=== PATIENT | female | born 1955 | race African-American/Black ===

== ENCOUNTER 2020-11-10 16:05 | Observation (INO) ==
--- NOTE | 2020-11-10 16:08 | DR.DIZZY ---
HPI Time seen Time Seen by Provider: 11/10/20 16:07 HPI Comment HPI Comment: This 65-year-old -[place] female with previous history of type 2 diabetes, hypertension presents with left-sided weakness for 1 week. Patient seen in ER yesterday for similar symptoms. Was also complaining of vomiting. Underwent CT of the head which demonstrated right-sided posterior infarct. It was recommended that patient follow-up with her primary care doctor as well as a neurologist however patient did not do this. Reports persistent left-sided weakness, unchanged from yesterday, in the left upper and left lower extremity. No new or worsening facial droop, speech difficulty, headache, chest pain or shortness of breath. No new focal numbness or weakness. COVID-19 Coronavirus risk:travel/contact w/high risk person: No Has patient experienced Coronavirus symptoms: No Source History Provided: Patient and EMS Mode of Arrival Mode of Arrival: EMS Context Stroke Symptoms: Weakness of limb Associated signs and symptoms Associated Signs and Symptoms: Weak; denies Faintness, Syncope, Near Syncope, Vertigo, Difficult Speech, Change of Vision, Fever, Headache, Chest Pain, Nausea and Vomiting PMH PMH Past Medical History: Angina, Diabetes and Hypertension Past Surgical History: Yes Surgical History: Ortho Surgery and Other Family History Family Medical History: Diabetes Mellitus, Heart Failure and Hypertension Social History Do you use any recreational Drugs:: No Travel Risk Coronavirus risk:travel/contact w/high risk person: No Has patient experienced Coronavirus symptoms: No ROS Review of Systems Constitutional: No Symptoms Reported Eyes: No Symptoms Reported ENTM: No Symptoms Reported Respiratoy: No Symptoms Reported Cardiovascular: No Symptoms Reported Gastrointestinal/Abdominal: No Symptoms Reported Genitourinary: No Symptoms Reported Neurological: Paresthesia and Weakness; negative Headache, Numbness, Seizure and Dizziness Musculoskeletal: No Symptoms Reported Integumentary: No Symptoms Reported Hematologic/Lymphatic: No Symptoms Reported Endocrine: No Symptoms Reported Psychiatric: No Symptoms Reported All Other Systems: Reviewed and Negative PE Vital Signs Vitals: Temperature 36.7 C Pulse Rate 71 Respiratory Rate 18 Blood Pressure [Right Arm] 120/56 Blood Pressure [Left Arm] 144/61 Blood Pressure 120/56 O2 Sat by Pulse Oximetry 98 General Limitations: No Limitations General Appearance: Alert and In No Apparent Distress Head Head Exam: Normal Inspection Eyes Eye exam: Normal Appearance ENT ENT Exam: Normal Exam, Normal Oropharynx and Normal External Ear Exam Neck Neck Exam: Normal Inspection and Full ROM Chest Chest Inspection: Normal Inspection Respiratory Respiratory Exam: Normal Lung Sounds Bilat Cardiovascular Cardiovascular Exam: Regular Rate and Normal Rhythm Abdominal Exam Abdominal Exam: Normal Inspection, Normal Bowel Sounds and Soft Rectal Rectal Exam: Deferred Extremeties Extremities Exam: Normal Inspection and Full ROM Back Back Exam: Normal Inspection and Full ROM Neurologic Neurological Exam: Alert, Oriented X3 and CN II-XII Intact Patient Oriented To: Person, Place and Time Speech: Fluid Speech Upper Motor Neuron Exam: Dung Neglect: Normal, Pronator Drift: Normal and Sensory Extinction: Normal Psychiatric Psychiatric Exam: Normal Affect and Normal Mood Skin Skin Exam: Warm, Dry, Intact and Normal Color Other Exam Other Exam: right bka 5/5 strength LLE/ LUE, 5/5 strength RUE MDM Additional Information Obtained Additional Information Obtained From: Old Records Differential Diagnosis Differential Diagnosis: CVA, Dehydration and TIA COURSE Treatment Treatment: ct head repeated, stable old posterior infarct. Will Dc Education/Counseling Education/Counseling: Patient Educated On: Treatment, Diagnosis, Prognosis and Needs for Follow Up Opioid Opioid Risk Tool Age (Alexis box if 16-45): No History of Preadolescent Sexual Abuse: No Total: 0 Total Score Risk Category: Low Risk Copyright: Adam SIMPSON predicting aberrant behaviors Diagnosis Discharge Problem: CVA (cerebral vascular accident) Qualifiers: CVA mechanism: unspecified Qualified Code(s): I63.9 - Cerebral infarction, unspecified Instructions Instructions: Ischemic Stroke Forms: Precautions for COVID19 Patient Portal Social Distancing
--- NOTE | 2020-11-10 17:33 | CT ---
EXAM: HEAD CT WITHOUT INTRAVENOUS CONTRASTHISTORY: Left arm weakness and numbness since yesterday.TECHNIQUE: Spiral axial CT images are obtained through the brain without the administration of intravenous contrast. Additional sagittal and coronal reformatted images are reconstructed.DOSIMETRY: Total DLP 1087.8 mGycm; CTDI 67.4 mGyCOMPARISON: Head CT dated November 09, 2020.FINDINGS:There is an old stable right occipital lobe parenchymal infarction (approximately 5.3 cm AP by 2.6 cm transverse). There are mild parenchymal lucencies within the frontal periventricular white matter tracks of the centrum semiovale, consistent with chronic sequela of atherosclerotic microvascular ischemic disease. There is severe atherosclerosis of the carotid siphons and distal vertebral arteries.There is diffuse cerebral cortical atrophy. The centrum semiovale, basal ganglia, cerebellum, and brainstem are otherwise grossly unremarkable for a noncontrast CT scan. There is no acute intracranial hemorrhage, gross acute infarction, mass lesion, midline shift, or hydrocephalus seen. No extra-axial mass or abnormal fluid collection noted.The calvarium is intact. The partially imaged paranasal sinuses, middle ear cavities and mastoid air cells are clear.IMPRESSION:1. Stable chronic ischemic disease as detailed above, but no discernible acute infarction seen. Consider followup MRI with diffusion-weighted imaging to rule out occult acute infarction if clinically warranted.2. Severe atherosclerosis of the carotid siphons and distal vertebral arteries. Consider follow up MRA as clinically warranted.3. No skull fracture, intracranial hemorrhage, mass lesion, midline shift, or hydrocephalus seen.4. Overall, no significant interval change seen.Electronically signed by: Gely Moses (Nov 10, 2020 17:32:06)
[2020-11-10] MEDS ORDERED: ASPIRIN PO ONE (18:13)
--- NOTE | 2020-11-10 18:15 | DR.DIZZY ---
HPI Time seen Time Seen by Provider: 11/10/20 16:07 PCP Primary Care Physician: Cisneros Complaint Chief Complaint:: Pt c/o left arm weakness and numbness since yesterday. Pt seen yesterday for same and advised to see pcp and neurologist. COVID-19 Coronavirus risk:travel/contact w/high risk person: No Has patient experienced Coronavirus symptoms: No Source History Provided: Patient and EMS Mode of Arrival Mode of Arrival: EMS Timing Onset of Chief Complaint: 11/09/20 Context Stroke Symptoms: None Associated signs and symptoms Associated Signs and Symptoms: Weak; denies Faintness, Syncope, Near Syncope, Vertigo, Difficult Speech, Change of Vision, Fever, Headache, Chest Pain, Nausea and Vomiting PMH PMH Past Medical History: Yes Past Medical History: Angina, Diabetes and Hypertension Past Surgical History: Yes Surgical History: Ortho Surgery and Other Past Surgical History Comment: right aka, gallstone removal Family History History of Family Medical Conditions: Yes Family Medical History: Diabetes Mellitus, Heart Failure and Hypertension Social History Does patient currently use any type of tobacco product: No Have you used tobacco products in the last 12 months: No Type of Tobacco Use: Cigarettes Does any household member use tobacco: No Alcohol Use: None Do you use any recreational Drugs:: No Lives With: Family Lives Where: Home Travel Risk Coronavirus risk:travel/contact w/high risk person: No Has patient experienced Coronavirus symptoms: No Infectious screening In the last 2 months have you had wt loss of >10#?: NO Have you had fever, night sweats or hemotysis?: No Have you traveled outside the country in the last 6 months?: No Isolation: Standard PE Vital Signs Vitals: Temperature 36.7 C Pulse Rate 71 Respiratory Rate 18 Blood Pressure [Right Arm] 120/56 Blood Pressure [Left Arm] 144/61 Blood Pressure 120/56 O2 Sat by Pulse Oximetry 98 COURSE Treatment Treatment: entered in error Opioid Opioid Risk Tool Age (Alexis box if 16-45): No History of Preadolescent Sexual Abuse: No Total: 0 Total Score Risk Category: Low Risk Copyright: Adam SIMPSON predicting aberrant behaviors Diagnosis Discharge Problem: CVA (cerebral vascular accident) Qualifiers: CVA mechanism: unspecified Qualified Code(s): I63.9 - Cerebral infarction, unspecified Instructions Instructions: Ischemic Stroke Forms: Patient Portal Social Distancing
[2020-11-10] MEDS ORDERED: PLAVIX ONE (18:18)
[2020-11-10] MEDS ORDERED: ASPIRIN ONE (18:19)
[2020-11-10] MEDS: PLAVIX PO SCH (18:30)
[2020-11-10] MEDS ORDERED: LIPITOR TAB 80 MG ONE (18:32)
[2020-11-10] MEDS: LIPITOR TAB 40 MG PO SCH (18:35)
[2020-11-10 21:46] VITALS: BMI 31.4
[2020-11-11 06:42] LABS: ALBUMIN 2.4 g/dL (3.4-5.0); TOTAL PROTEIN 7.4 g/dL (6.4-8.2)
[2020-11-11 06:46] LABS: BASOPHILS % (AUTO) 0.4 % (0.2-1.0); EOSINOPHILS # (AUTO) 0.3 x10^3/uL (0.0-0.2); EOSINOPHILS % (AUTO) 3.6 % (0.9-2.9); HEMATOCRIT 32.6 % (36.0-47.0); HEMOGLOBIN 10.2 g/dL (12.0-16.0); LYMPHOCYTES # (AUTO) 3.6 X10^3/uL (1.3-2.9); LYMPHOCYTES % (AUTO) 40.9 % (21.0-51.0); MEAN CORPUSCULAR HEMOGLOBIN 27.5 pg (27.0-34.0); MEAN CORPUSCULAR HGB CONC 31.3 g/dL (33.0-35.0); MEAN PLATELET VOLUME 7.7 fL (7.4-11.0); MONOCYTES # (AUTO) 0.5 x10^3/uL (0.3-0.8); MONOCYTES % (AUTO) 6.2 % (0.0-13.0); NEUTROPHILS # (AUTO) 4.3 x10^3/uL (2.2-4.8); NEUTROPHILS % (AUTO) 48.9 % (42.0-75.0); PLATELET COUNT 330 X10^3/uL (150.0-450.0); RED CELL DISTRIBUTION WIDTH 15.6 % (11.6-16.5); WHITE BLOOD COUNT 8.7 X10^3/uL (3.6-10.0)
[2020-11-11 07:15] LABS: CALCIUM 8.4 mg/dL (8.5-10.1); COR CA(FOR HYPOALB) 9.7 mg/dL (8.5-10.1); CREATININE 1.63 mg/dL (0.55-1.02)
[2020-11-11] MEDS ORDERED: MICRO K EXTEN CAP 10 MEQ PO PRN (07:56)
[2020-11-11] MEDS ORDERED: K-RIDER 10 MEQ/NS 100 ML 10 MEQ/100 ML BAG IV PRN (07:56)
[2020-11-11] MEDS ORDERED: POTASSIUM CHL 60 MEQ/NS 0.45% 500 ML IV PRN (07:56)
[2020-11-11] MEDS ORDERED: POTASSIUM CHLORIDE LIQ 20 MEQ UDC PO PRN (07:56)
[2020-11-11] MEDS ORDERED: K-DUR TAB 20 MEQ PO PRN (07:56)
[2020-11-11] MEDS ORDERED: POTASSIUM CHL 40 MEQ/NS 0.45% 500 ML IV PRN (07:56)
[2020-11-11] MEDS ORDERED: KLOR-CON PO PRN (07:56)
[2020-11-11] MEDS: LIPITOR TAB 40 MG PO SCH (08:55)
[2020-11-11] MEDS: PLAVIX PO SCH (08:55)
[2020-11-11] MEDS: LOVENOX INJ 30 MG SYR SC SCH (10:25)
[2020-11-11] MEDS: ACTOS PO SCH (10:25)
[2020-11-11] MEDS: COZAAR PO SCH (10:25)
--- NOTE | 2020-11-11 12:10 | VAS ---
CAROTID USCLINICAL INDICATION: LEFT ARM NUMBNESS, CVAPROCEDURE: Pulsed wave and color-flow duplex imaging was utilized to evaluate the extracranial carotid arteries.COMPARISON:NoneFINDINGS:Right carotid:No hemodynamically significant stenosis involving the right carotid artery. The velocities are as follows:CCA peak systolic velocity 42 cm/sec, ICA peak systolic velocity 59 cm/sec. Flow within the right vertebral and right ECA is directed antegrade.ICA/CCA ratio: 1.2Left carotid:No hemodynamically significant stenosis involving the left carotid artery. The velocities are as follows:CCA peak systolic velocity 56 cm/sec, ICA peak systolic velocity 86 cm/sec. Flow within the left vertebral and left ECA is directed antegrade.ICA/CCA ratio: 1.5IMPRESSION:1. Normal peak systolic velocity corresponds to a less than 50% diameter stenosis of the right ICA.2. Normal peak systolic velocity corresponds to a less than 50% diameter stenosis of the left ICA.Electronically signed by: NEGRO LOCKE (Nov 11, 2020 12:08:47)
[2020-11-12 06:55] LABS: BASOPHILS % (AUTO) 0.4 % (0.2-1.0); EOSINOPHILS # (AUTO) 0.3 x10^3/uL (0.0-0.2); HEMATOCRIT 30.4 % (36.0-47.0); HEMOGLOBIN 9.9 g/dL (12.0-16.0); LYMPHOCYTES # (AUTO) 3.3 X10^3/uL (1.3-2.9); LYMPHOCYTES % (AUTO) 38.2 % (21.0-51.0); MEAN CORPUSCULAR HEMOGLOBIN 28.3 pg (27.0-34.0); MEAN CORPUSCULAR HGB CONC 32.5 g/dL (33.0-35.0); MEAN PLATELET VOLUME 7.9 fL (7.4-11.0); MONOCYTES # (AUTO) 0.5 x10^3/uL (0.3-0.8); MONOCYTES % (AUTO) 5.4 % (0.0-13.0); NEUTROPHILS # (AUTO) 4.5 x10^3/uL (2.2-4.8); PLATELET COUNT 320 X10^3/uL (150.0-450.0); RED BLOOD COUNT 3.49 X10^6/uL (3.5-5.4); RED CELL DISTRIBUTION WIDTH 15.9 % (11.6-16.5); WHITE BLOOD COUNT 8.6 X10^3/uL (3.6-10.0)
[2020-11-12 07:14] LABS: ALBUMIN 2.3 g/dL (3.4-5.0); CALCIUM 7.9 mg/dL (8.5-10.1); CARBON DIOXIDE 24.8 mmol/L (21-32); COR CA(FOR HYPOALB) 9.3 mg/dL (8.5-10.1); CREATININE 1.32 mg/dL (0.55-1.02); TOTAL PROTEIN 7.1 g/dL (6.4-8.2)
[2020-11-12] MEDS: LOVENOX INJ 30 MG SYR SC SCH (09:21)
[2020-11-12] MEDS: LIPITOR TAB 40 MG PO SCH (09:22)
[2020-11-12] MEDS: PLAVIX PO SCH (09:22)
[2020-11-12] MEDS: COZAAR PO SCH (09:22)
[2020-11-12] MEDS: ACTOS PO SCH (09:28)
[2020-11-12] MEDS ORDERED: GLUCOPHAGE XR 24-HR PO SCH (11:00)
[2020-11-12] MEDS ORDERED: NORVASC TAB 5 MG PO SCH (11:00)
[2020-11-12 12:22] VITALS: BP 186/77
== END 2020-11-12 13:45 | disposition home or self-care (01) ==
LOC: MED/SURG 16:05 → ER 16:05 → MED/SURG 20:45
PROVIDERS: ADMIT Obstetrics & Gynecology Obstetrics; ATTEND Obstetrics & Gynecology Obstetrics
DX: E11.65 Type 2 diabetes mellitus with hyperglycemia; R20.0 Anesthesia of skin; I10 Essential (primary) hypertension; Z20.822 Contact with and (suspected) exposure to COVID-19; I63.89 Other cerebral infarction; R53.1 Weakness; R26.89 Other abnormalities of gait and mobility

== ENCOUNTER 2020-11-26 07:10 | Inpatient (IN) ==
[2020-11-26 07:39] VITALS: BMI 28.8
[2020-11-26] MEDS ORDERED: ZOFRAN INJ 4 MG VIAL IVP ONE (07:39)
[2020-11-26] MEDS ORDERED: NS 1000 ML 1,000 ML IV ONE (07:40)
--- NOTE | 2020-11-26 07:41 | DR.NAUSEAF ---
HPI Time Seen Time Seen by Provider: 11/26/20 07:37 PMH PMH Past Medical History: Angina, Diabetes and Hypertension Past Surgical History: Yes Surgical History: Ortho Surgery Family History Family Medical History: Diabetes Mellitus, Heart Failure and Hypertension Social History Do you use any recreational Drugs:: No PE Vital Signs Vitals: Blood Pressure [Right Arm] 186/77 Opioid Opioid Risk Tool Age (Alexis box if 16-45): No History of Preadolescent Sexual Abuse: No Total: 0 Total Score Risk Category: Low Risk Copyright: Adam SIMPSON predicting aberrant behaviors
[2020-11-26 07:49] LABS: BASOPHILS % (AUTO) 0.4 % (0.2-1.0); EOSINOPHILS # (AUTO) 0.2 x10^3/uL (0.0-0.2); EOSINOPHILS % (AUTO) 1.5 % (0.9-2.9); HEMATOCRIT 30.8 % (36.0-47.0); HEMOGLOBIN 9.7 g/dL (12.0-16.0); LYMPHOCYTES % (AUTO) 37.7 % (21.0-51.0); MEAN CORPUSCULAR HEMOGLOBIN 27.7 pg (27.0-34.0); MEAN CORPUSCULAR HGB CONC 31.5 g/dL (33.0-35.0); MEAN CORPUSCULAR VOLUME 87.9 fL (80.0-100.0); MEAN PLATELET VOLUME 7.5 fL (7.4-11.0); MONOCYTES # (AUTO) 0.8 x10^3/uL (0.3-0.8); MONOCYTES % (AUTO) 5.9 % (0.0-13.0); NEUTROPHILS # (AUTO) 7.2 x10^3/uL (2.2-4.8); NEUTROPHILS % (AUTO) 54.5 % (42.0-75.0); PLATELET COUNT 375 X10^3/uL (150.0-450.0); RED BLOOD COUNT 3.51 X10^6/uL (3.5-5.4); RED CELL DISTRIBUTION WIDTH 16.1 % (11.6-16.5); WHITE BLOOD COUNT 13.3 X10^3/uL (3.6-10.0)
[2020-11-26 07:52] LABS: CARBON DIOXIDE 28.3 mmol/L (21-32); CREATININE 2.02 mg/dL (0.55-1.02)
[2020-11-26] MEDS ORDERED: ZOFRAN INJ 4 MG VIAL ONE (07:56)
[2020-11-26] MEDS ORDERED: NS 1000 ML 1,000 ML ONE (07:56)
[2020-11-26 08:02] LABS: ALBUMIN 2.8 g/dL (3.4-5.0); TOTAL PROTEIN 8.5 g/dL (6.4-8.2)
--- NOTE | 2020-11-26 08:56 | RAD ---
HISTORYDiarrheaSTUDYKUB two viewsCOMPARISONFebruary 2020FINDINGSThere are several segments of distended small bowel in the left-central abdomen. No colon dilatation is noted. There is no evidence for mass, abnormal calcification or ascites. Surgical clips right upper quadrant consistent with cholecystectomy.IMPRESSIONLocalized small-bowel dilatation, probably ileus, although a developing small bowel obstruction could produce similar findings. Follow-up imaging recommended if symptoms persist.Electronically signed by: TONY BREWER (Nov 26, 2020 08:53:58)
--- NOTE | 2020-11-26 09:02 | DR.NAUSEAF ---
HPI Time Seen Time Seen by Provider: 11/26/20 07:37 Primary Care Physician Primary Care Physician: DALY Complaints Chief Complaint:: PT C/O N/V/D THT STARTED LAST NIGHT. PT'S FAMILY STATED TO EMSS THAT PT ESTER BEEN EXCESSIVLY WEAK AND STARTED HAVING SURRED SPEECH LAST NIGHT. PT COMES IN VIA EMS PER STRETCHER ACTIVLY VOMITTING. PT IS NOTED TO BE VERY WEAK AND HAVING DIFFICULTY HOLDING HEAD UP. PT IS ALSO COVERED IN FECES. DIAHRREA NOTED IN PULL UP. COVID-19 Coronavirus risk:travel/contact w/high risk person: No Has patient experienced Coronavirus symptoms: No Reviewed Nurses Notes Reviewed: Yes Source History Provided: Patient and EMS Mode of Arrival Mode of Arrival: EMS Timing Onset of Chief Complaint: 11/25/20 Duration Duration: 1 Severity Number of episodes of vomiting over last 24 hours: 3 Context Onset: Spontaneous History of: Diabetes (chronic renal failure ) Quality Quality: Bilious Associated Signs and Symptoms Symptoms: Anorexia PMH PMH Past Medical History: Yes Past Medical History: Angina, Diabetes and Hypertension Past Surgical History: Yes Surgical History: Ortho Surgery Past Surgical History Comment: KELLY Family History History of Family Medical Conditions: Yes Family Medical History: Diabetes Mellitus, Heart Failure and Hypertension Social History Does any household member use tobacco: No Alcohol Use: None Do you use any recreational Drugs:: No Lives With: Family Lives Where: Home Travel Risk Coronavirus risk:travel/contact w/high risk person: No Has patient experienced Coronavirus symptoms: No Infectious screening In the last 2 months have you had wt loss of >10#?: NO Have you had fever, night sweats or hemotysis?: No Have you traveled outside the country in the last 6 months?: No Isolation: Standard ROS Review of Systems Constitutional: Weakness Gastrointestinal/Abdominal: Nausea and Vomiting Neurological: Headache and Problems Walking Musculoskeletal: Other (right above the knee amputation) PE Vital Signs Vitals: Pulse Rate 77 Respiratory Rate 22 Blood Pressure [Right Arm] 186/77 Blood Pressure 133/80 O2 Sat by Pulse Oximetry 99 General Limitations: No Limitations General Appearance: Alert and Other (APHASIA ) Head Head Exam: Normal Inspection ENT ENT Exam: Mucous Membranes Dry Neck Neck Exam: Full ROM Chest Chest Inspection: Symmetric Chest Wall Rise Respiratory Respiratory Exam: Normal Lung Sounds Bilat Cardiovascular Cardiovascular Exam: +S1 and +S2 Abdominal Exam Abdominal Exam: Normal Bowel Sounds, Soft and Other (Protuberant ) Extremities Extremities Exam: Other (above the knee amputation right ,) Neurologic Neurological Exam: Alert and Other (Left sided hemiparesis ) Skin Skin Exam: Dry MDM Additional Information Obtained Additional Findings:: vomiting ,dehydration ,constipation ,Bedbound ,renal failure ,headache Differential Diagnosis Differential Diagnosis: Considerations may Include:: Bowel Obstruction, Drug Toxicity, Food Poisoning and Gastroenteritis COURSE Treatment Treatment: IV fluids,iv zofran ,CT of the head ,plain abdominal film , tylenol ROR Labs Reviewed Laboratory Results Reviewed?: Yes Result Diagrams: 11/26/20 07:30 11/26/20 07:30 Laboratory: WBC 13.3 X10^3/uL (3.6-10.0) H 11/26/20 07:30 RBC 3.51 X10^6/uL (3.5-5.4) 11/26/20 07:30 Hgb 9.7 g/dL (12.0-16.0) L 11/26/20 07:30 Hct 30.8 % (36.0-47.0) L 11/26/20 07:30 MCV 87.9 fL (80.0-100.0) 11/26/20 07:30 MCH 27.7 pg (27.0-34.0) 11/26/20 07:30 MCHC 31.5 g/dL (33.0-35.0) L 11/26/20 07:30 RDW 16.1 % (11.6-16.5) 11/26/20 07:30 Plt Count 375 X10^3/uL (150.0-450.0) 11/26/20 07:30 MPV 7.5 fL (7.4-11.0) 11/26/20 07:30 Neut % (Auto) 54.5 % (42.0-75.0) 11/26/20 07:30 Lymph % (Auto) 37.7 % (21.0-51.0) 11/26/20 07:30 [place] % (Auto) 5.9 % (0.0-13.0) 11/26/20 07:30 Eos % (Auto) 1.5 % (0.9-2.9) 11/26/20 07:30 Baso % (Auto) 0.4 % (0.2-1.0) 11/26/20 07:30 Neut # (Auto) 7.2 x10^3/uL (2.2-4.8) H 11/26/20 07:30 Lymph # (Auto) 5.0 X10^3/uL (1.3-2.9) H 11/26/20 07:30 [place] # (Auto) 0.8 x10^3/uL (0.3-0.8) 11/26/20 07:30 Eos # (Auto) 0.2 x10^3/uL (0.0-0.2) 11/26/20 07:30 Baso # (Auto) 0.0 X10^3/uL (0.0-0.1) 11/26/20 07:30 Absolute Nucleated RBC 0.1 /100WBC 11/26/20 07:30 Sodium 139 mmol/L (136-145) 11/26/20 07:30 Corrected Sodium 141 mmol/L (136-145) 11/26/20 07:30 Potassium 3.1 mmol/L (3.5-5.1) L 11/26/20 07:30 Chloride 102 mmol/L (98-107) 11/26/20 07:30 Carbon Dioxide 28.3 mmol/L (21-32) 11/26/20 07:30 BUN 33 mg/dL (7-18) H 11/26/20 07:30 Creatinine 2.02 mg/dL (0.55-1.02) H 11/26/20 07:30 Est GFR (MDRD) Af Amer 32 (>60) L 11/26/20 07:30 Est GFR (MDRD) Non-Af 26 (>60) L 11/26/20 07:30 Glucose 176 mg/dL (65-99) H 11/26/20 07:30 Calcium 9.0 mg/dL (8.5-10.1) 11/26/20 07:30 Corrected Calcium 10.0 mg/dL (8.5-10.1) 11/26/20 07:30 Total Bilirubin 0.40 mg/dL (0.2-1.0) 11/26/20 07:30 AST 13 Units/L (15-37) L 11/26/20 07:30 ALT 14 Units/L (12-78) 11/26/20 07:30 Alkaline Phosphatase 114 Units/L (46-116) 11/26/20 07:30 Total Protein 8.5 g/dL (6.4-8.2) H 11/26/20 07:30 Albumin 2.8 g/dL (3.4-5.0) L 11/26/20 07:30 Globulin 5.7 g/dL (2.5-4.5) H 11/26/20 07:30 Albumin/Globulin Ratio 0.5 Ratio (1.1-2.1) L 11/26/20 07:30 SARS CoV-2 RNA Rapid ANDREW Negative (NEGATIVE) 11/26/20 09:36 Opioid Opioid Risk Tool Age (Alexis box if 16-45): No History of Preadolescent Sexual Abuse: No Total: 0 Total Score Risk Category: Low Risk Copyright: Adam SIMPSON predicting aberrant behaviors Procedures Procedure Comments Procedures: ng tube Instructions Forms: Precautions for COVID19 Patient Portal Social Distancing
--- NOTE | 2020-11-26 09:18 | DR.NAUSEAF ---
HPI Time Seen Time Seen by Provider: 11/26/20 07:37 Primary Care Physician Primary Care Physician: DALY Complaints Chief Complaint:: PT C/O N/V/D THT STARTED LAST NIGHT. PT'S FAMILY STATED TO EMSS THAT PT ESTER BEEN EXCESSIVLY WEAK AND STARTED HAVING SURRED SPEECH LAST NIGHT. PT COMES IN VIA EMS PER STRETCHER ACTIVLY VOMITTING. PT IS NOTED TO BE VERY WEAK AND HAVING DIFFICULTY HOLDING HEAD UP. PT IS ALSO COVERED IN FECES. DIAHRREA NOTED IN PULL UP. COVID-19 Coronavirus risk:travel/contact w/high risk person: No Has patient experienced Coronavirus symptoms: No Source History Provided: Patient and EMS Mode of Arrival Mode of Arrival: EMS Timing Onset of Chief Complaint: 11/25/20 Severity Number of episodes of vomiting over last 24 hours: 3 PMH PMH Past Medical History: Yes Past Medical History: Angina, Diabetes and Hypertension Past Surgical History: Yes Surgical History: Ortho Surgery Past Surgical History Comment: KELLY Family History History of Family Medical Conditions: Yes Family Medical History: Diabetes Mellitus, Heart Failure and Hypertension Social History Does any household member use tobacco: No Alcohol Use: None Do you use any recreational Drugs:: No Lives With: Family Lives Where: Home Travel Risk Coronavirus risk:travel/contact w/high risk person: No Has patient experienced Coronavirus symptoms: No Infectious screening In the last 2 months have you had wt loss of >10#?: NO Have you had fever, night sweats or hemotysis?: No Have you traveled outside the country in the last 6 months?: No Isolation: Standard PE Vital Signs Vitals: Pulse Rate 77 Respiratory Rate 22 Blood Pressure [Right Arm] 186/77 Blood Pressure 133/80 O2 Sat by Pulse Oximetry 99 ROR Labs Reviewed Result Diagrams: 11/26/20 07:30 11/26/20 07:30 Laboratory: WBC 13.3 X10^3/uL (3.6-10.0) H 11/26/20 07:30 RBC 3.51 X10^6/uL (3.5-5.4) 11/26/20 07:30 Hgb 9.7 g/dL (12.0-16.0) L 11/26/20 07:30 Hct 30.8 % (36.0-47.0) L 11/26/20 07:30 MCV 87.9 fL (80.0-100.0) 11/26/20 07:30 MCH 27.7 pg (27.0-34.0) 11/26/20 07:30 MCHC 31.5 g/dL (33.0-35.0) L 11/26/20 07:30 RDW 16.1 % (11.6-16.5) 11/26/20 07:30 Plt Count 375 X10^3/uL (150.0-450.0) 11/26/20 07:30 MPV 7.5 fL (7.4-11.0) 11/26/20 07:30 Neut % (Auto) 54.5 % (42.0-75.0) 11/26/20 07:30 Lymph % (Auto) 37.7 % (21.0-51.0) 11/26/20 07:30 [place] % (Auto) 5.9 % (0.0-13.0) 11/26/20 07:30 Eos % (Auto) 1.5 % (0.9-2.9) 11/26/20 07:30 Baso % (Auto) 0.4 % (0.2-1.0) 11/26/20 07:30 Neut # (Auto) 7.2 x10^3/uL (2.2-4.8) H 11/26/20 07:30 Lymph # (Auto) 5.0 X10^3/uL (1.3-2.9) H 11/26/20 07:30 [place] # (Auto) 0.8 x10^3/uL (0.3-0.8) 11/26/20 07:30 Eos # (Auto) 0.2 x10^3/uL (0.0-0.2) 11/26/20 07:30 Baso # (Auto) 0.0 X10^3/uL (0.0-0.1) 11/26/20 07:30 Absolute Nucleated RBC 0.1 /100WBC 11/26/20 07:30 Sodium 139 mmol/L (136-145) 11/26/20 07:30 Corrected Sodium 141 mmol/L (136-145) 11/26/20 07:30 Potassium 3.1 mmol/L (3.5-5.1) L 11/26/20 07:30 Chloride 102 mmol/L (98-107) 11/26/20 07:30 Carbon Dioxide 28.3 mmol/L (21-32) 11/26/20 07:30 BUN 33 mg/dL (7-18) H 11/26/20 07:30 Creatinine 2.02 mg/dL (0.55-1.02) H 11/26/20 07:30 Est GFR (MDRD) Af Amer 32 (>60) L 11/26/20 07:30 Est GFR (MDRD) Non-Af 26 (>60) L 11/26/20 07:30 Glucose 176 mg/dL (65-99) H 11/26/20 07:30 Calcium 9.0 mg/dL (8.5-10.1) 11/26/20 07:30 Corrected Calcium 10.0 mg/dL (8.5-10.1) 11/26/20 07:30 Total Bilirubin 0.40 mg/dL (0.2-1.0) 11/26/20 07:30 AST 13 Units/L (15-37) L 11/26/20 07:30 ALT 14 Units/L (12-78) 11/26/20 07:30 Alkaline Phosphatase 114 Units/L (46-116) 11/26/20 07:30 Total Protein 8.5 g/dL (6.4-8.2) H 11/26/20 07:30 Albumin 2.8 g/dL (3.4-5.0) L 11/26/20 07:30 Globulin 5.7 g/dL (2.5-4.5) H 11/26/20 07:30 Albumin/Globulin Ratio 0.5 Ratio (1.1-2.1) L 11/26/20 07:30 Opioid Opioid Risk Tool Age (Alexis box if 16-45): No History of Preadolescent Sexual Abuse: No Total: 0 Total Score Risk Category: Low Risk Copyright: Adam SIMPSON predicting aberrant behaviors
--- NOTE | 2020-11-26 09:49 | CT ---
HISTORYha, rt side of headSTUDYCT HEAD WITHOUT CONTRASTCOMPARISONNo recent comparison studiesTECHNIQUEAxial CT of the head is performed from the base of the skull through the vertex WITHOUT contrast . Multiplaner reformats are generated from the original axial data.FINDINGSThe patient is tilted within the gantry resulting in asymmetry between the right and left cerebral hemispheres. There is a chronic infarction associated with the right parietal-occipital junction. Age related cortical atrophy with commensurate ventricular dilatation is observed. There is a chronic lacunar infarct associated with the posterior margin of the left putamen. Mild chronic small vessel ischemic changes of the deep white matter tracts are observed. No acute stage, large artery territorial infarction is identified. The calvarium is intact. There is dependent mucosal thickening of the left maxillary sinus chamber. Otherwise, the paranasal sinuses are predominantly clear.IMPRESSIONNo acute intracranial abnormalities.Chronic encephalomalacia corresponding to an ischemic infarction of the right parietal occipital junction.Other chronic age related involutional changes and small vessel ischemic findings, as detailed above.Radiation dose reduction was achieved through individualized adjustment of kVP and/or mA, through adaptive statistical iterative reconstruction, and/or through automated tube current modulation.Electronically signed by: BUSTER BALTAZAR (Nov 26, 2020 09:47:07)
[2020-11-26] MEDS ORDERED: HumuLIN R SUBCUT PRN (10:01)
[2020-11-26] MEDS: NS + KCL 40 MEQ/L 1,000 ML IV SCH ×2 (13:14→20:00)
[2020-11-26] MEDS ORDERED: PREVNAR 13 IM ONE (13:26)
[2020-11-26] MEDS ORDERED: AFLURIA II4 or FLUARIX II4 IM ONE (13:26)
[2020-11-27] MEDS: NS + KCL 40 MEQ/L 1,000 ML IV SCH ×3 (04:36→20:30)
[2020-11-27 06:23] LABS: BASOPHILS # (AUTO) 0.1 X10^3/uL (0.0-0.1); BASOPHILS % (AUTO) 0.9 % (0.2-1.0); EOSINOPHILS # (AUTO) 0.2 x10^3/uL (0.0-0.2); HEMATOCRIT 30.1 % (36.0-47.0); HEMOGLOBIN 9.5 g/dL (12.0-16.0); LYMPHOCYTES # (AUTO) 3.6 X10^3/uL (1.3-2.9); LYMPHOCYTES % (AUTO) 35.3 % (21.0-51.0); MEAN CORPUSCULAR HEMOGLOBIN 27.8 pg (27.0-34.0); MEAN CORPUSCULAR HGB CONC 31.5 g/dL (33.0-35.0); MEAN CORPUSCULAR VOLUME 88.2 fL (80.0-100.0); MEAN PLATELET VOLUME 7.8 fL (7.4-11.0); MONOCYTES # (AUTO) 0.6 x10^3/uL (0.3-0.8); MONOCYTES % (AUTO) 6.3 % (0.0-13.0); NEUTROPHILS # (AUTO) 5.7 x10^3/uL (2.2-4.8); NEUTROPHILS % (AUTO) 55.5 % (42.0-75.0); PLATELET COUNT 335 X10^3/uL (150.0-450.0); RED BLOOD COUNT 3.42 X10^6/uL (3.5-5.4); RED CELL DISTRIBUTION WIDTH 16.6 % (11.6-16.5); WHITE BLOOD COUNT 10.2 X10^3/uL (3.6-10.0)
[2020-11-27 06:37] LABS: ALBUMIN 2.5 g/dL (3.4-5.0); CALCIUM 8.5 mg/dL (8.5-10.1); CARBON DIOXIDE 24.5 mmol/L (21-32); COR CA(FOR HYPOALB) 9.7 mg/dL (8.5-10.1); CREATININE 1.57 mg/dL (0.55-1.02); TOTAL PROTEIN 7.7 g/dL (6.4-8.2)
[2020-11-27] MEDS: COZAAR PO SCH (10:27)
[2020-11-27] MEDS: GLUCOPHAGE XR 24-HR PO SCH ×2 (10:27→20:29)
[2020-11-27] MEDS: PLAVIX PO SCH (10:28)
[2020-11-27] MEDS: NORVASC TAB 5 MG PO SCH (10:28)
[2020-11-27] MEDS: ACTOS PO SCH (10:28)
[2020-11-27] MEDS: MAGNESIUM SULFATE 1 GRAM/100 mL PREMIX 4 G/400 ML BAG IV SCH ×4 (11:26→14:48)
--- NOTE | 2020-11-27 12:54 | RAD ---
HISTORYnausea and vomiting HX: cva, htn, dm.br on leg for blood clotSTUDYACUTE ABDOMEN [id number]. Lungs adequately inflated and grossly clear. No sizab le effusion or visible pneumothorax. Abdomen shows nonobstructive but nonspecific bowel gas pattern. RUQ clips. Degenerative changes in the spine. No visible free air.IMPRESSION1. [Cardiomegaly.]2. [Non specific bowel gas pattern.]Electronically signed by: Dexter Davis (Nov 27, 2020 12:51:46)
[2020-11-28] MEDS: COZAAR PO SCH ×2 (04:39→08:43)
[2020-11-28] MEDS: NS + KCL 40 MEQ/L 1,000 ML IV SCH ×3 (05:22→13:13)
[2020-11-28 06:33] LABS: ALBUMIN 2.4 g/dL (3.4-5.0); CALCIUM 8.2 mg/dL (8.5-10.1); CARBON DIOXIDE 22.8 mmol/L (21-32); COR CA(FOR HYPOALB) 9.5 mg/dL (8.5-10.1); CREATININE 1.4 mg/dL (0.55-1.02); MAGNESIUM 2.3 mg/dL (1.7-2.9); TOTAL PROTEIN 7.5 g/dL (6.4-8.2)
[2020-11-28 06:43] LABS: BASOPHILS % (AUTO) 0.3 % (0.2-1.0); EOSINOPHILS # (AUTO) 0.2 x10^3/uL (0.0-0.2); EOSINOPHILS % (AUTO) 2.3 % (0.9-2.9); HEMATOCRIT 30.7 % (36.0-47.0); HEMOGLOBIN 9.5 g/dL (12.0-16.0); LYMPHOCYTES # (AUTO) 2.3 X10^3/uL (1.3-2.9); LYMPHOCYTES % (AUTO) 27.5 % (21.0-51.0); MEAN CORPUSCULAR HEMOGLOBIN 27.4 pg (27.0-34.0); MEAN CORPUSCULAR HGB CONC 30.8 g/dL (33.0-35.0); MEAN CORPUSCULAR VOLUME 88.8 fL (80.0-100.0); MEAN PLATELET VOLUME 8.1 fL (7.4-11.0); MONOCYTES # (AUTO) 0.6 x10^3/uL (0.3-0.8); MONOCYTES % (AUTO) 6.7 % (0.0-13.0); NEUTROPHILS # (AUTO) 5.4 x10^3/uL (2.2-4.8); NEUTROPHILS % (AUTO) 63.2 % (42.0-75.0); PLATELET COUNT 306 X10^3/uL (150.0-450.0); RED BLOOD COUNT 3.45 X10^6/uL (3.5-5.4); RED CELL DISTRIBUTION WIDTH 16.4 % (11.6-16.5); WHITE BLOOD COUNT 8.5 X10^3/uL (3.6-10.0)
[2020-11-28] MEDS ORDERED: PREVNAR 13 IM ONE (08:06)
[2020-11-28] MEDS: PLAVIX PO SCH (08:42)
[2020-11-28] MEDS: ACTOS PO SCH (08:42)
[2020-11-28] MEDS: NORVASC TAB 5 MG PO SCH (08:43)
[2020-11-28] MEDS: GLUCOPHAGE XR 24-HR PO SCH ×2 (08:43→21:11)
[2020-11-28] MEDS ORDERED: KAYEXALATE SUSP PO NR (10:00)
[2020-11-28] MEDS ORDERED: TOPROL XL PO ONE (11:12)
[2020-11-28] MEDS: TOPROL XL PO SCH (11:20)
[2020-11-28] MEDS: LOVENOX INJ 40 MG SYR SC SCH (11:20)
[2020-11-28] MEDS: ZOFRAN INJ 4 MG VIAL IVP PRN (17:57)
[2020-11-29] MEDS: ZOFRAN INJ 4 MG VIAL IVP PRN (00:17)
[2020-11-29 06:07] LABS: BASOPHILS % (AUTO) 0.5 % (0.2-1.0); EOSINOPHILS # (AUTO) 0.2 x10^3/uL (0.0-0.2); EOSINOPHILS % (AUTO) 2.5 % (0.9-2.9); HEMATOCRIT 29.4 % (36.0-47.0); HEMOGLOBIN 9.6 g/dL (12.0-16.0); LYMPHOCYTES # (AUTO) 2.9 X10^3/uL (1.3-2.9); LYMPHOCYTES % (AUTO) 32.2 % (21.0-51.0); MEAN CORPUSCULAR HEMOGLOBIN 28.5 pg (27.0-34.0); MEAN CORPUSCULAR HGB CONC 32.5 g/dL (33.0-35.0); MEAN CORPUSCULAR VOLUME 87.6 fL (80.0-100.0); MEAN PLATELET VOLUME 7.8 fL (7.4-11.0); MONOCYTES # (AUTO) 0.6 x10^3/uL (0.3-0.8); MONOCYTES % (AUTO) 6.5 % (0.0-13.0); NEUTROPHILS # (AUTO) 5.3 x10^3/uL (2.2-4.8); NEUTROPHILS % (AUTO) 58.3 % (42.0-75.0); PLATELET COUNT 341 X10^3/uL (150.0-450.0); RED BLOOD COUNT 3.36 X10^6/uL (3.5-5.4); RED CELL DISTRIBUTION WIDTH 16.4 % (11.6-16.5); WHITE BLOOD COUNT 9.1 X10^3/uL (3.6-10.0)
[2020-11-29 06:19] LABS: ALANINE AMINOTRANSFERASE 12 Units/L (12-78); ALBUMIN 2.6 g/dL (3.4-5.0); ALKALINE PHOSPHATASE 104 Units/L (46-116); ASPARTATE AMINO TRANSFERASE 17 Units/L (15-37); BLOOD UREA NITROGEN 12 mg/dL (7-18); CALCIUM 8.6 mg/dL (8.5-10.1); CARBON DIOXIDE 24.6 mmol/L (21-32); CHLORIDE 105 mmol/L (98-107); COR CA(FOR HYPOALB) 9.7 mg/dL (8.5-10.1); CREATININE 1.28 mg/dL (0.55-1.02); SODIUM 138 mmol/L (136-145); eGFR NON BLACK RACES 44 (>60)
[2020-11-29] MEDS ORDERED: TOPROL XL PO ONE (08:13)
[2020-11-29] MEDS ORDERED: NORVASC TAB 5 MG PO SCH (09:00)
[2020-11-29] MEDS: GLUCOPHAGE XR 24-HR PO SCH (09:21)
[2020-11-29] MEDS: ACTOS PO SCH (09:21)
[2020-11-29] MEDS: LOVENOX INJ 40 MG SYR SC SCH (09:22)
[2020-11-29] MEDS: TOPROL XL PO SCH (09:22)
[2020-11-29] MEDS: PLAVIX PO SCH (09:22)
[2020-11-29 12:13] VITALS: BP 180/79
== END 2020-11-29 13:00 | disposition home health service (06) | DRG 392 ==
LOC: ER 07:10 → MED/SURG 09:55
PROVIDERS: ADMIT Obstetrics & Gynecology Obstetrics; ATTEND Obstetrics & Gynecology Obstetrics

== ENCOUNTER → 2021-10-23 16:30 | Inpatient (IN) ==
--- NOTE | 2021-10-15 11:09 | DR.NAUSEAF ---
HPI Time Seen Time Seen by Provider: 10/15/21 10:43 Primary Care Physician Primary Care Physician: MALIKA HPI Comment HPI Comment: A 65 y/o female presenting with c/o of 5 days of nausea and vomitting. She denies abdominal pain or diarrhea. Record review showed that she tested COVID positive on 10/13/2021 and was d/c with rx. for: Zofran ODT, Medrol Dose Pack, Vit. C., Zinc, Levaquin and Z-pack. Complaints Chief Complaint:: PT. TESTED POSITIVE FOR COVID 19 ON 10/13/21. PT. C/O NAUSEA/VOMITING AND ABDOMINAL PAIN. COVID-19 Coronavirus risk:travel/contact w/high risk person: Yes Has patient experienced Coronavirus symptoms: Yes Coronavirus symptoms experienced: Coughing Reviewed Nurses Notes Reviewed: Yes Source History Provided: Patient, EMS and Other (ED records review) Mode of Arrival Mode of Arrival: EMS Timing Onset of Chief Complaint: 10/13/21 Context Recent: None Possible Ingestion: Unknown Associated Signs and Symptoms Abdominal Pain Quality: denies Aching, Burning, Cramping, Sharp, Stabbing and Other PMH PMH Past Medical History: Yes Past Medical History: Diabetes, Dyslipidemia and Hypertension Past Surgical History: Yes Surgical History: Cholecystectomy, Ortho Surgery and Other Past Surgical History Comment: RIGHT ABOVE KNEE AMPUTATION Family History History of Family Medical Conditions: Yes Family Medical History: Diabetes Mellitus, Coronary Artery Disease and Hypertension Social History Does patient currently use any type of tobacco product: No Have you used tobacco products in the last 12 months: No Type of Tobacco Use: None Does any household member use tobacco: No Alcohol Use: None Do you use any recreational Drugs:: No Lives With: Family Lives Where: Home Travel Risk Coronavirus risk:travel/contact w/high risk person: Yes Has patient experienced Coronavirus symptoms: Yes Coronavirus symptoms experienced: Coughing Infectious screening In the last 2 months have you had wt loss of >10#?: NO Have you had fever, night sweats or hemotysis?: No Have you traveled outside the country in the last 6 months?: No Isolation: Droplet ROS Review of Systems Constitutional: No Symptoms Reported Eyes: No Symptoms Reported ENTM: No Symptoms Reported Respiratoy: No Symptoms Reported Cardiovascular: No Symptoms Reported Gastrointestinal/Abdominal: Nausea and Vomiting; negative No Symptoms Reported, See HPI, Abdominal Pain, Constipation, Diarrhea and Food Intolerance Genitourinary: No Symptoms Reported Neurological: No Symptoms Reported Musculoskeletal: No Symptoms Reported Integumentary: No Symptoms Reported Hematologic/Lymphatic: No Symptoms Reported Endocrine: No Symptoms Reported Psychiatric: No Symptoms Reported PE Vital Signs Vitals: Temperature 97.7 F Pulse Rate [Left Brachial] 69 Pulse Rate 66 Respiratory Rate 36 Blood Pressure [Left Arm] 184/87 Blood Pressure 159/84 O2 Sat by Pulse Oximetry 98 General Limitations: No Limitations General Appearance: Alert and In No Apparent Distress Head Head Exam: Normal Inspection, Atraumatic and Normocephalic Eyes Eye exam: Normal Appearance and EOMI ENT ENT Exam: Normal Exam, Normal Oropharynx, Normal External Ear Exam and Mucous Membranes Dry Neck Neck Exam: Normal Inspection, Full ROM and Trachea Midline Chest Chest Inspection: Normal Inspection and Symmetric Chest Wall Rise Respiratory Respiratory Exam: Normal Lung Sounds Bilat Cardiovascular Cardiovascular Exam: Regular Rate, Normal Heart Sounds, +S1 and +S2 Abdominal Exam Abdominal Exam: Normal Inspection, Normal Bowel Sounds and Soft Rectal Rectal Exam: Deferred External Exam: Female: Deferred Extremities Extremities Exam: Full ROM and Other (s/p Rt. AKA) Back Back Exam: Normal Inspection and Full ROM Neurologic Neurological Exam: Alert and Oriented X3 Psychiatric Psychiatric Exam: Normal Affect and Normal Mood Skin Skin Exam: Intact COURSE Treatment Treatment: She had somehow pulled out her IV line. It came to light upon my asking if there is anything that I can do for her and we were talking about medications. She had an open inquisitive look on her face and states she has not taken any new medication. The nurses called her home and spoke with her grand- daughter who admitted that they've not picked up the medications prescribed on 10/13/2021 from the pharmacy yet. . Reevaluation 1st: Improved Education/Counseling Education/Counseling: Patient, Education and Counseling Educated On: Treatment, Diagnosis, Prognosis and Needs for Follow Up ROR Labs Reviewed Result Diagrams: 10/15/21 10:54 10/15/21 10:54 Laboratory: WBC 7.2 X10^3/uL (3.6-10.0) 10/15/21 10:54 RBC 3.84 X10^6/uL (3.5-5.4) 10/15/21 10:54 Hgb 10.7 g/dL (12.0-16.0) L 10/15/21 10:54 Hct 33.0 % (36.0-47.0) L 10/15/21 10:54 MCV 85.7 fL (80.0-100.0) 10/15/21 10:54 MCH 27.8 pg (27.0-34.0) 10/15/21 10:54 MCHC 32.4 g/dL (33.0-35.0) L 10/15/21 10:54 RDW 14.9 % (11.6-16.5) 10/15/21 10:54 Plt Count 342 X10^3/uL (150.0-450.0) 10/15/21 10:54 MPV 8.4 fL (7.4-11.0) 10/15/21 10:54 Neut % (Auto) 74.8 % (42.0-75.0) 10/15/21 10:54 Lymph % (Auto) 18.3 % (21.0-51.0) L 10/15/21 10:54 [place] % (Auto) 6.6 % (0.0-13.0) 10/15/21 10:54 Eos % (Auto) 0.2 % (0.9-2.9) L 10/15/21 10:54 Baso % (Auto) 0.1 % (0.2-1.0) L 10/15/21 10:54 Neut # (Auto) 5.4 x10^3/uL (2.2-4.8) H 10/15/21 10:54 Lymph # (Auto) 1.3 X10^3/uL (1.3-2.9) 10/15/21 10:54 [place] # (Auto) 0.5 x10^3/uL (0.3-0.8) 10/15/21 10:54 Eos # (Auto) 0.0 x10^3/uL (0.0-0.2) 10/15/21 10:54 Baso # (Auto) 0.0 X10^3/uL (0.0-0.1) 10/15/21 10:54 Absolute Nucleated RBC 0.5 /100WBC 10/15/21 10:54 Sodium 142 mmol/L (136-145) 10/15/21 10:54 Corrected Sodium 143 mmol/L (136-145) 10/15/21 10:54 Potassium 5.2 mmol/L (3.5-5.1) H 10/15/21 10:54 Chloride 108 mmol/L (98-107) H 10/15/21 10:54 Carbon Dioxide 25.4 mmol/L (21-32) 10/15/21 10:54 BUN 17 mg/dL (7-18) 10/15/21 10:54 Creatinine 1.45 mg/dL (0.55-1.02) H 10/15/21 10:54 Est GFR (MDRD) Af Amer 46 (>60) L 10/15/21 10:54 Est GFR (MDRD) Non-Af 38 (>60) L 10/15/21 10:54 Glucose 127 mg/dL (65-99) H 10/15/21 10:54 Calcium 7.2 mg/dL (8.5-10.1) L 10/15/21 10:54 Opioid Opioid Risk Tool Age (Alexis box if 16-45): No History of Preadolescent Sexual Abuse: No Total: 0 Total Score Risk Category: Low Risk Copyright: Adam SIMPSON predicting aberrant behaviors Diagnosis Discharge Problem: COVID-19, Nausea Instructions Instructions: COVID-19 Forms: Precautions for COVID19 [facility] Patient Portal Social Distancing
[2021-10-15 11:53] LABS: BASOPHILS % (AUTO) 0.1 % (0.2-1.0); CALCIUM 7.2 mg/dL (8.5-10.1); CARBON DIOXIDE 25.4 mmol/L (21-32); CREATININE 1.45 mg/dL (0.55-1.02); EOSINOPHILS % (AUTO) 0.2 % (0.9-2.9); HEMOGLOBIN 10.7 g/dL (12.0-16.0); LYMPHOCYTES # (AUTO) 1.3 X10^3/uL (1.3-2.9); LYMPHOCYTES % (AUTO) 18.3 % (21.0-51.0); MEAN CORPUSCULAR HEMOGLOBIN 27.8 pg (27.0-34.0); MEAN CORPUSCULAR HGB CONC 32.4 g/dL (33.0-35.0); MEAN CORPUSCULAR VOLUME 85.7 fL (80.0-100.0); MEAN PLATELET VOLUME 8.4 fL (7.4-11.0); MONOCYTES # (AUTO) 0.5 x10^3/uL (0.3-0.8); MONOCYTES % (AUTO) 6.6 % (0.0-13.0); NEUTROPHILS # (AUTO) 5.4 x10^3/uL (2.2-4.8); NEUTROPHILS % (AUTO) 74.8 % (42.0-75.0); RED BLOOD COUNT 3.84 X10^6/uL (3.5-5.4); RED CELL DISTRIBUTION WIDTH 14.9 % (11.6-16.5); WHITE BLOOD COUNT 7.2 X10^3/uL (3.6-10.0)
--- NOTE | 2021-10-15 15:07 | CT ---
EXAM: HEAD CT WITHOUT INTRAVENOUS CONTRASTHISTORY: Left facial weakness and droop.TECHNIQUE: Spiral axial CT images are obtained through the brain without the administration of intravenous contrast. Additional sagittal and coronal reformatted images are reconstructed.DOSIMETRY: Total DLP 1121.5 mGycm; CTDI 67.4 mGyCOMPARISON: Head CT dated November 26, 2020.FINDINGS:There is a stable large right right occipital lobe parenchymal infarction. There is a chronic stable left posterior lateral basal ganglia lacunar infarction (within the posterior external capsule).There are parenchymal lucencies within the white matter tracks of the centrum semiovale, consistent with chronic sequela of atherosclerotic microvascular ischemic disease. Severe atherosclerosis of the intracranial ICAs and vertebral arteries is seen.There is diffuse cerebral cortical atrophy. The centrum semiovale, basal ganglia, cerebellum, and brainstem are otherwise grossly unremarkable for a noncontrast CT scan. There is no acute intracranial hemorrhage, gross acute infarction, mass lesion, midline shift, or hydrocephalus seen. No extra-axial mass or abnormal fluid collection noted.The calvarium is intact. The partially imaged paranasal sinuses, middle ear cavities and mastoid air cells are clear.IMPRESSION:1. Chronic ischemic disease, but no discernible acute infarction seen (note that small subacute infarctions can be easily obscured in this radiographic setting). Consider followup MRI with diffusion-weighted imaging to rule out occult acute infarction if clinically warranted.2. Severe atherosclerosis of the intracranial ICAs and vertebral arteries is seen. Consider follow-up MRA as clinically warranted.3. No skull fracture, intracranial hemorrhage, mass lesion, midline shift, or hydrocephalus seen.Electronically signed by: Gely Moses (Oct 15, 2021 15:06:37)
[2021-10-15 15:35] LABS: BILIRUBIN,URINE NEGATIVE (NEGATIVE); BLOOD/HEMOGLOBIN,URINE 4+ (NEGATIVE); GLUCOSE, URINE 2+ (NEGATIVE); KETONES,URINE 1+ (NEGATIVE); LEUKOCYTE ESTERASE ,URINE 3+ (NEGATIVE); NITRITES,URINE NEGATIVE (NEGATIVE); PROTEIN,URINE 4+ (NEGATIVE); UROBILINOGEN,URINE NORMAL (NORMAL)
[2021-10-15 15:42] LABS: APPEARANCE,URINE SLIGHTLY HAZY (CLEAR); COLOR,URINE YELLOW (YELLOW)
[2021-10-15 15:43] LABS: BACTERIA,URINE 1+ /HPF (NEGATIVE); RBC,URINE 30-50 /HPF (0-3); SQUAMOUS EPITHELIAL CELL,UR MANY /HPF (NEGATIVE)
[2021-10-15 17:50] LABS: CKMB % 6.9 % (<4); CREATINE KINASE MB 3.6 ng/mL (0-4.0)
[2021-10-15 19:57] LABS: CALCIUM 8.5 mg/dL (8.5-10.1); CARBON DIOXIDE 27.3 mmol/L (21-32); CREATININE 1.92 mg/dL (0.55-1.02)
[2021-10-15] MEDS: NS 1,000 ML IV 1,000 ML IV SCH (20:35)
[2021-10-15] MEDS: ASCORBIC ACID INJ MULTI-DOSE VIAL 1,500 MG in NS 100 ML IV 100 ML IV SCH (20:35)
[2021-10-15] MEDS: LOVENOX INJ 30 MG SYR SC SCH (20:36)
[2021-10-15] MEDS: ZINC SULFATE PO SCH (20:36)
[2021-10-15] MEDS: VIBRAMYCIN PO SCH (20:36)
[2021-10-15] MEDS: GLUCOPHAGE PO SCH (20:44)
[2021-10-15] MEDS: PULMICORT NEB TX 0.5 MG NEB SCH (21:11)
[2021-10-15] MEDS: BROVANA IN SCH (21:11)
[2021-10-15] MEDS: NEURONTIN CAP 400 MG PO SCH (21:16)
[2021-10-15] MEDS: SOLU-Medrol 40 MG VIAL IVP SCH (21:16)
[2021-10-15] MEDS: K-DUR TAB 20 MEQ PO PRN (22:26)
[2021-10-15] MEDS: MAGNESIUM SULFATE 1 GRAM/100 mL PREMIX 1 G/100 ML BAG IV PRN ×2 (22:58→23:54)
[2021-10-16] MEDS: K-DUR TAB 20 MEQ PO PRN (02:13)
[2021-10-16] MEDS: ASCORBIC ACID INJ MULTI-DOSE VIAL 1,500 MG in NS 100 ML IV 100 ML IV SCH ×4 (03:46→21:36)
[2021-10-16] MEDS: NEURONTIN CAP 400 MG PO SCH (06:05)
[2021-10-16] MEDS: SOLU-Medrol 40 MG VIAL IVP SCH ×3 (06:05→21:40)
[2021-10-16] MEDS: NovoLIN R (or HumuLIN R) SC PRN ×3 (06:16→21:37)
[2021-10-16] MEDS: GLUCOPHAGE PO SCH ×2 (06:32→17:45)
[2021-10-16 06:34] LABS: BASOPHILS % (AUTO) 0.3 % (0.2-1.0); HEMATOCRIT 34.6 % (36.0-47.0); HEMOGLOBIN 11.3 g/dL (12.0-16.0); LYMPHOCYTES # (AUTO) 0.8 X10^3/uL (1.3-2.9); LYMPHOCYTES % (AUTO) 11.6 % (21.0-51.0); MEAN CORPUSCULAR HEMOGLOBIN 27.7 pg (27.0-34.0); MEAN CORPUSCULAR HGB CONC 32.8 g/dL (33.0-35.0); MEAN CORPUSCULAR VOLUME 84.6 fL (80.0-100.0); MEAN PLATELET VOLUME 8.2 fL (7.4-11.0); MONOCYTES # (AUTO) 0.3 x10^3/uL (0.3-0.8); MONOCYTES % (AUTO) 4.2 % (0.0-13.0); NEUTROPHILS # (AUTO) 5.6 x10^3/uL (2.2-4.8); NEUTROPHILS % (AUTO) 83.9 % (42.0-75.0); RED BLOOD COUNT 4.09 X10^6/uL (3.5-5.4); WHITE BLOOD COUNT 6.7 X10^3/uL (3.6-10.0)
[2021-10-16 07:13] LABS: CALCIUM 8.4 mg/dL (8.5-10.1); CARBON DIOXIDE 23.5 mmol/L (21-32); CREATININE 1.78 mg/dL (0.55-1.02)
[2021-10-16] MEDS: BROVANA IN SCH ×2 (08:35→21:08)
[2021-10-16] MEDS: PULMICORT NEB TX 0.5 MG NEB SCH ×2 (08:35→21:08)
[2021-10-16] MEDS: ACTOS PO SCH (08:56)
[2021-10-16] MEDS: NORVASC TAB 10 MG PO SCH (08:57)
[2021-10-16] MEDS: LOVENOX INJ 30 MG SYR SC SCH ×2 (08:58→21:36)
[2021-10-16] MEDS: PEPCID TAB 20 MG PO SCH (08:58)
[2021-10-16] MEDS: ZINC SULFATE PO SCH ×2 (08:59→21:39)
[2021-10-16] MEDS: TRICOR TAB 48 MG PO SCH (08:59)
[2021-10-16] MEDS: PLAVIX PO SCH (08:59)
[2021-10-16] MEDS: VIBRAMYCIN PO SCH ×2 (09:00→21:39)
[2021-10-16] MEDS: TOPROL XL PO SCH ×2 (09:17→09:52)
[2021-10-16 10:37] LABS: BILIRUBIN,URINE NEGATIVE (NEGATIVE); BLOOD/HEMOGLOBIN,URINE 4+ (NEGATIVE); GLUCOSE, URINE NEGATIVE (NEGATIVE); KETONES,URINE NEGATIVE (NEGATIVE); LEUKOCYTE ESTERASE ,URINE 2+ (NEGATIVE); NITRITES,URINE NEGATIVE (NEGATIVE); PROTEIN,URINE 4+ (NEGATIVE); UROBILINOGEN,URINE NORMAL (NORMAL)
[2021-10-16 10:39] LABS: APPEARANCE,URINE CLEAR (CLEAR); COLOR,URINE YELLOW (YELLOW)
[2021-10-16] MEDS: NEURONTIN CAP 300 MG PO SCH ×2 (15:25→21:39)
[2021-10-16] MEDS: NS 1,000 ML IV 1,000 ML IV SCH (21:30)
[2021-10-16] MEDS: ROCEPHIN 1 GRAM IV PREMIX 1 G/50 ML IV.SOLN. IV SCH (21:38)
[2021-10-16] MEDS: ULTRAM PO PRN (21:40)
[2021-10-17] MEDS: ASCORBIC ACID INJ MULTI-DOSE VIAL 1,500 MG in NS 100 ML IV 100 ML IV SCH ×2 (02:30→08:59)
[2021-10-17] MEDS: ULTRAM PO PRN (04:04)
[2021-10-17 06:10] LABS: BASOPHILS % (AUTO) 0.5 % (0.2-1.0); EOSINOPHILS % (AUTO) 0.1 % (0.9-2.9); HEMATOCRIT 33.4 % (36.0-47.0); HEMOGLOBIN 10.9 g/dL (12.0-16.0); LYMPHOCYTES # (AUTO) 0.9 X10^3/uL (1.3-2.9); LYMPHOCYTES % (AUTO) 9.3 % (21.0-51.0); MEAN CORPUSCULAR HEMOGLOBIN 27.6 pg (27.0-34.0); MEAN CORPUSCULAR HGB CONC 32.5 g/dL (33.0-35.0); MEAN PLATELET VOLUME 7.9 fL (7.4-11.0); MONOCYTES # (AUTO) 0.5 x10^3/uL (0.3-0.8); NEUTROPHILS # (AUTO) 8.6 x10^3/uL (2.2-4.8); NEUTROPHILS % (AUTO) 85.1 % (42.0-75.0); RED BLOOD COUNT 3.93 X10^6/uL (3.5-5.4); RED CELL DISTRIBUTION WIDTH 15.8 % (11.6-16.5); WHITE BLOOD COUNT 10.1 X10^3/uL (3.6-10.0)
[2021-10-17 06:17] LABS: ALBUMIN 2.2 g/dL (3.4-5.0); CARBON DIOXIDE 24.5 mmol/L (21-32); COR CA(FOR HYPOALB) 9.4 mg/dL (8.5-10.1); CREATININE 2.07 mg/dL (0.55-1.02); TOTAL PROTEIN 7.5 g/dL (6.4-8.2)
[2021-10-17] MEDS: NEURONTIN CAP 300 MG PO SCH ×3 (06:28→21:07)
[2021-10-17] MEDS: SOLU-Medrol 40 MG VIAL IVP SCH (06:28)
[2021-10-17] MEDS: GLUCOPHAGE PO SCH ×2 (06:30→16:50)
[2021-10-17] MEDS: NovoLIN R (or HumuLIN R) SC PRN ×4 (06:30→20:34)
[2021-10-17] MEDS: APRESOLINE TAB 25 MG PO SCH ×3 (08:48→21:06)
[2021-10-17] MEDS: ACTOS PO SCH (08:53)
[2021-10-17] MEDS: VITAMIN D3 125 mcg (5,000 UNITS) PO SCH (08:53)
[2021-10-17] MEDS: ZINC SULFATE PO SCH ×2 (08:53→20:26)
[2021-10-17] MEDS: VIBRAMYCIN PO SCH ×2 (08:54→20:25)
[2021-10-17] MEDS: TOPROL XL PO SCH (08:55)
[2021-10-17] MEDS: TRICOR TAB 48 MG PO SCH (08:55)
[2021-10-17] MEDS: PLAVIX PO SCH (08:56)
[2021-10-17] MEDS: NORVASC TAB 10 MG PO SCH (08:57)
[2021-10-17] MEDS: PEPCID TAB 20 MG PO SCH (08:57)
[2021-10-17] MEDS: BENICAR TAB 40 MG PO SCH (08:58)
[2021-10-17] MEDS: LOVENOX INJ 30 MG SYR SC SCH ×2 (08:59→20:25)
[2021-10-17] MEDS: VITAMIN A PO SCH (09:03)
[2021-10-17] MEDS: BROVANA IN SCH ×2 (09:24→20:06)
[2021-10-17] MEDS: PULMICORT NEB TX 0.5 MG NEB SCH ×2 (09:24→20:06)
[2021-10-17] MEDS: ASCORBIC ACID MULTI IV SCH ×4 (11:23→19:23)
[2021-10-17] MEDS: NS IV SCH ×4 (11:23→19:23)
[2021-10-17] MEDS: ROCEPHIN 1 GRAM IV PREMIX 1 G/50 ML IV.SOLN. IV SCH (20:25)
[2021-10-18] MEDS: ASCORBIC ACID MULTI IV SCH ×6 (02:53→20:58)
[2021-10-18] MEDS: NS IV SCH ×6 (02:53→20:58)
[2021-10-18] MEDS: APRESOLINE TAB 25 MG PO SCH ×3 (05:47→20:59)
[2021-10-18] MEDS: NEURONTIN CAP 300 MG PO SCH ×3 (05:47→21:00)
[2021-10-18] MEDS: GLUCOPHAGE PO SCH ×2 (06:29→17:26)
[2021-10-18 06:33] LABS: BASOPHILS % (AUTO) 0.2 % (0.2-1.0); HEMATOCRIT 31.7 % (36.0-47.0); HEMOGLOBIN 10.2 g/dL (12.0-16.0); LYMPHOCYTES # (AUTO) 2.1 X10^3/uL (1.3-2.9); LYMPHOCYTES % (AUTO) 16.1 % (21.0-51.0); MEAN CORPUSCULAR HEMOGLOBIN 27.5 pg (27.0-34.0); MEAN CORPUSCULAR HGB CONC 32.2 g/dL (33.0-35.0); MEAN CORPUSCULAR VOLUME 85.5 fL (80.0-100.0); MEAN PLATELET VOLUME 8.1 fL (7.4-11.0); MONOCYTES # (AUTO) 1.6 x10^3/uL (0.3-0.8); MONOCYTES % (AUTO) 12.3 % (0.0-13.0); NEUTROPHILS # (AUTO) 9.4 x10^3/uL (2.2-4.8); NEUTROPHILS % (AUTO) 71.4 % (42.0-75.0); RED BLOOD COUNT 3.71 X10^6/uL (3.5-5.4); WHITE BLOOD COUNT 13.2 X10^3/uL (3.6-10.0)
[2021-10-18 06:47] LABS: ALANINE AMINOTRANSFERASE 11 Units/L (12-78); ALKALINE PHOSPHATASE 83 Units/L (46-116); ASPARTATE AMINO TRANSFERASE 20 Units/L (15-37); BLOOD UREA NITROGEN 32 mg/dL (7-18); CALCIUM 7.7 mg/dL (8.5-10.1); CARBON DIOXIDE 23.2 mmol/L (21-32); CHLORIDE 108 mmol/L (98-107); COR CA(FOR HYPOALB) 9.3 mg/dL (8.5-10.1); CREATININE 1.71 mg/dL (0.55-1.02); MAGNESIUM 2.1 mg/dL (1.7-2.9); SODIUM 140 mmol/L (136-145); TOTAL PROTEIN 6.3 g/dL (6.4-8.2); eGFR NON BLACK RACES 32 (>60)
[2021-10-18 07:40] VITALS: BMI 25.7
[2021-10-18] MEDS: LOVENOX INJ 30 MG SYR SC SCH ×2 (08:53→20:59)
[2021-10-18] MEDS: PLAVIX PO SCH (08:54)
[2021-10-18] MEDS: VIBRAMYCIN PO SCH (08:54)
[2021-10-18] MEDS: PEPCID TAB 20 MG PO SCH (08:54)
[2021-10-18] MEDS: ZINC SULFATE PO SCH ×2 (08:54→20:59)
[2021-10-18] MEDS: NORVASC TAB 10 MG PO SCH (08:54)
[2021-10-18] MEDS: ACTOS PO SCH (08:54)
[2021-10-18] MEDS: TRICOR TAB 48 MG PO SCH (08:55)
[2021-10-18] MEDS: VITAMIN D3 125 mcg (5,000 UNITS) PO SCH (08:55)
[2021-10-18] MEDS: BENICAR TAB 40 MG PO SCH (08:55)
[2021-10-18] MEDS: TOPROL XL PO SCH (09:00)
[2021-10-18] MEDS: VITAMIN A PO SCH (09:00)
[2021-10-18] MEDS: BROVANA IN SCH ×2 (09:29→20:49)
[2021-10-18] MEDS: PULMICORT NEB TX 0.5 MG NEB SCH ×2 (09:30→20:49)
[2021-10-18] MEDS: LEVAQUIN PREMIX IV 750 MG 750 MG/150 ML BAG IV SCH (10:00)
[2021-10-18] MEDS: ULTRAM PO PRN (14:58)
[2021-10-19] MEDS: ASCORBIC ACID MULTI IV SCH ×6 (03:51→21:15)
[2021-10-19] MEDS: NS IV SCH ×6 (03:51→21:15)
[2021-10-19] MEDS: APRESOLINE TAB 25 MG PO SCH ×3 (05:27→21:00)
[2021-10-19] MEDS: NEURONTIN CAP 300 MG PO SCH ×3 (05:27→21:00)
[2021-10-19 06:15] LABS: BASOPHILS % (AUTO) 0.1 % (0.2-1.0); EOSINOPHILS # (AUTO) 0.2 x10^3/uL (0.0-0.2); EOSINOPHILS % (AUTO) 1.9 % (0.9-2.9); HEMOGLOBIN 10.1 g/dL (12.0-16.0); LYMPHOCYTES # (AUTO) 2.7 X10^3/uL (1.3-2.9); LYMPHOCYTES % (AUTO) 27.1 % (21.0-51.0); MEAN CORPUSCULAR HEMOGLOBIN 27.6 pg (27.0-34.0); MEAN CORPUSCULAR HGB CONC 32.7 g/dL (33.0-35.0); MEAN CORPUSCULAR VOLUME 84.6 fL (80.0-100.0); MEAN PLATELET VOLUME 7.6 fL (7.4-11.0); MONOCYTES % (AUTO) 9.8 % (0.0-13.0); NEUTROPHILS % (AUTO) 61.1 % (42.0-75.0); RED BLOOD COUNT 3.66 X10^6/uL (3.5-5.4); RED CELL DISTRIBUTION WIDTH 16.3 % (11.6-16.5); WHITE BLOOD COUNT 9.8 X10^3/uL (3.6-10.0)
[2021-10-19 06:34] LABS: ALANINE AMINOTRANSFERASE 10 Units/L (12-78); ALBUMIN 1.7 g/dL (3.4-5.0); ALKALINE PHOSPHATASE 78 Units/L (46-116); ASPARTATE AMINO TRANSFERASE 12 Units/L (15-37); BLOOD UREA NITROGEN 31 mg/dL (7-18); CALCIUM 7.3 mg/dL (8.5-10.1); CHLORIDE 112 mmol/L (98-107); COR CA(FOR HYPOALB) 9.1 mg/dL (8.5-10.1); CREATININE 1.55 mg/dL (0.55-1.02); SODIUM 141 mmol/L (136-145); TOTAL PROTEIN 5.7 g/dL (6.4-8.2); eGFR NON BLACK RACES 36 (>60)
[2021-10-19] MEDS: GLUCOPHAGE PO SCH ×2 (07:25→18:39)
[2021-10-19] MEDS: LEVAQUIN PREMIX IV 750 MG 750 MG/150 ML BAG IV SCH (08:06)
[2021-10-19] MEDS: ACTOS PO SCH (08:06)
[2021-10-19] MEDS: VITAMIN D3 125 mcg (5,000 UNITS) PO SCH (08:07)
[2021-10-19] MEDS: ZINC SULFATE PO SCH ×2 (08:07→20:32)
[2021-10-19] MEDS: TOPROL XL PO SCH (08:08)
[2021-10-19] MEDS: PEPCID TAB 20 MG PO SCH (08:08)
[2021-10-19] MEDS: PLAVIX PO SCH (08:08)
[2021-10-19] MEDS: TRICOR TAB 48 MG PO SCH (08:08)
[2021-10-19] MEDS: VITAMIN A PO SCH (08:08)
[2021-10-19] MEDS: NORVASC TAB 10 MG PO SCH (08:09)
[2021-10-19] MEDS: BENICAR TAB 40 MG PO SCH (08:09)
[2021-10-19] MEDS: LOVENOX INJ 30 MG SYR SC SCH ×2 (08:09→20:34)
[2021-10-19] MEDS: BROVANA IN SCH ×2 (08:43→21:00)
[2021-10-19] MEDS: PULMICORT NEB TX 0.5 MG NEB SCH ×2 (08:43→21:00)
[2021-10-20] MEDS: ULTRAM PO PRN ×2 (01:34→21:18)
[2021-10-20] MEDS: NS IV SCH ×6 (03:26→18:20)
[2021-10-20] MEDS: ASCORBIC ACID MULTI IV SCH ×6 (03:26→18:20)
[2021-10-20] MEDS: NEURONTIN CAP 300 MG PO SCH ×3 (05:03→21:18)
[2021-10-20] MEDS: APRESOLINE TAB 25 MG PO SCH ×3 (05:03→21:18)
[2021-10-20] MEDS: GLUCOPHAGE PO SCH ×2 (06:00→16:48)
[2021-10-20 06:21] LABS: BASOPHILS % (AUTO) 0.1 % (0.2-1.0); EOSINOPHILS # (AUTO) 0.2 x10^3/uL (0.0-0.2); EOSINOPHILS % (AUTO) 2.3 % (0.9-2.9); HEMOGLOBIN 10.3 g/dL (12.0-16.0); LYMPHOCYTES # (AUTO) 2.5 X10^3/uL (1.3-2.9); MEAN CORPUSCULAR HEMOGLOBIN 27.5 pg (27.0-34.0); MEAN CORPUSCULAR HGB CONC 32.3 g/dL (33.0-35.0); MEAN CORPUSCULAR VOLUME 85.1 fL (80.0-100.0); MEAN PLATELET VOLUME 7.7 fL (7.4-11.0); MONOCYTES # (AUTO) 0.8 x10^3/uL (0.3-0.8); MONOCYTES % (AUTO) 10.1 % (0.0-13.0); NEUTROPHILS # (AUTO) 4.7 x10^3/uL (2.2-4.8); NEUTROPHILS % (AUTO) 57.5 % (42.0-75.0); RED BLOOD COUNT 3.76 X10^6/uL (3.5-5.4); WHITE BLOOD COUNT 8.2 X10^3/uL (3.6-10.0)
[2021-10-20 07:01] LABS: ALANINE AMINOTRANSFERASE 9 Units/L (12-78); ALBUMIN 1.9 g/dL (3.4-5.0); ALKALINE PHOSPHATASE 72 Units/L (46-116); ASPARTATE AMINO TRANSFERASE 16 Units/L (15-37); BLOOD UREA NITROGEN 28 mg/dL (7-18); CALCIUM 7.6 mg/dL (8.5-10.1); CARBON DIOXIDE 21.8 mmol/L (21-32); CHLORIDE 109 mmol/L (98-107); COR CA(FOR HYPOALB) 9.3 mg/dL (8.5-10.1); CREATININE 1.48 mg/dL (0.55-1.02); SODIUM 138 mmol/L (136-145); eGFR NON BLACK RACES 38 (>60)
[2021-10-20] MEDS: PULMICORT NEB TX 0.5 MG NEB SCH ×2 (09:00→21:17)
[2021-10-20] MEDS: BROVANA IN SCH ×2 (09:00→21:17)
[2021-10-20] MEDS: LOVENOX INJ 30 MG SYR SC SCH ×2 (09:59→21:19)
[2021-10-20] MEDS: BENICAR TAB 40 MG PO SCH (09:59)
[2021-10-20] MEDS: ACTOS PO SCH (09:59)
[2021-10-20] MEDS: PLAVIX PO SCH (10:00)
[2021-10-20] MEDS: PEPCID TAB 20 MG PO SCH (10:00)
[2021-10-20] MEDS: NORVASC TAB 10 MG PO SCH (10:00)
[2021-10-20] MEDS: ZINC SULFATE PO SCH ×2 (10:01→21:18)
[2021-10-20] MEDS: VITAMIN D3 125 mcg (5,000 UNITS) PO SCH (10:01)
[2021-10-20] MEDS: VITAMIN A PO SCH (10:01)
[2021-10-20] MEDS: TOPROL XL PO SCH (10:01)
[2021-10-20] MEDS: TRICOR TAB 48 MG PO SCH (10:01)
[2021-10-20] MEDS: LEVAQUIN PREMIX IV 750 MG 750 MG/150 ML BAG IV SCH (10:45)
[2021-10-21] MEDS: NS IV SCH ×8 (00:54→18:22)
[2021-10-21] MEDS: ASCORBIC ACID MULTI IV SCH ×8 (00:54→18:22)
[2021-10-21] MEDS: APRESOLINE TAB 25 MG PO SCH ×3 (05:30→21:00)
[2021-10-21] MEDS: NEURONTIN CAP 300 MG PO SCH ×3 (05:30→21:00)
[2021-10-21] MEDS: GLUCOPHAGE PO SCH ×2 (06:00→17:06)
[2021-10-21] MEDS: LOVENOX INJ 30 MG SYR SC SCH ×2 (08:03→20:44)
[2021-10-21] MEDS: ACTOS PO SCH (08:03)
[2021-10-21] MEDS: LEVAQUIN PREMIX IV 750 MG 750 MG/150 ML BAG IV SCH (08:04)
[2021-10-21] MEDS: NORVASC TAB 10 MG PO SCH (08:04)
[2021-10-21] MEDS: PEPCID TAB 20 MG PO SCH (08:04)
[2021-10-21] MEDS: BENICAR TAB 40 MG PO SCH (08:04)
[2021-10-21] MEDS: TRICOR TAB 48 MG PO SCH (08:05)
[2021-10-21] MEDS: TOPROL XL PO SCH (08:05)
[2021-10-21] MEDS: VITAMIN D3 125 mcg (5,000 UNITS) PO SCH (08:05)
[2021-10-21] MEDS: VITAMIN A PO SCH (08:05)
[2021-10-21] MEDS: PLAVIX PO SCH (08:05)
[2021-10-21] MEDS: ZINC SULFATE PO SCH ×2 (08:06→20:44)
[2021-10-21] MEDS: BROVANA IN SCH ×2 (09:21→20:25)
[2021-10-21] MEDS: PULMICORT NEB TX 0.5 MG NEB SCH ×2 (09:21→20:25)
[2021-10-21] MEDS: NovoLIN R (or HumuLIN R) SC PRN (13:50)
[2021-10-21] MEDS: ULTRAM PO PRN (20:50)
[2021-10-22] MEDS: NS IV SCH ×8 (04:00→22:49)
[2021-10-22] MEDS: ASCORBIC ACID MULTI IV SCH ×8 (04:00→22:49)
[2021-10-22 05:35] LABS: BASOPHILS % (AUTO) 0.1 % (0.2-1.0); EOSINOPHILS # (AUTO) 0.2 x10^3/uL (0.0-0.2); EOSINOPHILS % (AUTO) 1.8 % (0.9-2.9); HEMATOCRIT 27.3 % (36.0-47.0); LYMPHOCYTES # (AUTO) 2.3 X10^3/uL (1.3-2.9); MEAN CORPUSCULAR HEMOGLOBIN 28.2 pg (27.0-34.0); MEAN CORPUSCULAR VOLUME 85.5 fL (80.0-100.0); MEAN PLATELET VOLUME 7.8 fL (7.4-11.0); MONOCYTES # (AUTO) 0.9 x10^3/uL (0.3-0.8); MONOCYTES % (AUTO) 10.7 % (0.0-13.0); NEUTROPHILS # (AUTO) 5.3 x10^3/uL (2.2-4.8); NEUTROPHILS % (AUTO) 61.4 % (42.0-75.0); RED CELL DISTRIBUTION WIDTH 16.6 % (11.6-16.5); WHITE BLOOD COUNT 8.7 X10^3/uL (3.6-10.0)
[2021-10-22 05:42] LABS: ALANINE AMINOTRANSFERASE 8 Units/L (12-78); ALBUMIN 1.6 g/dL (3.4-5.0); ALKALINE PHOSPHATASE 64 Units/L (46-116); ASPARTATE AMINO TRANSFERASE 18 Units/L (15-37); BLOOD UREA NITROGEN 23 mg/dL (7-18); CALCIUM 7.4 mg/dL (8.5-10.1); CARBON DIOXIDE 20.5 mmol/L (21-32); CHLORIDE 112 mmol/L (98-107); COR CA(FOR HYPOALB) 9.3 mg/dL (8.5-10.1); CREATININE 1.54 mg/dL (0.55-1.02); SODIUM 140 mmol/L (136-145); TOTAL PROTEIN 5.5 g/dL (6.4-8.2); eGFR NON BLACK RACES 36 (>60)
[2021-10-22] MEDS: GLUCOPHAGE PO SCH ×2 (06:03→20:33)
[2021-10-22] MEDS: NEURONTIN CAP 300 MG PO SCH ×3 (06:03→21:02)
[2021-10-22] MEDS: APRESOLINE TAB 25 MG PO SCH ×3 (06:03→21:02)
[2021-10-22] MEDS: PULMICORT NEB TX 0.5 MG NEB SCH ×2 (08:46→20:48)
[2021-10-22] MEDS: BROVANA IN SCH ×2 (08:46→20:48)
[2021-10-22] MEDS: ACTOS PO SCH (09:32)
[2021-10-22] MEDS: BENICAR TAB 40 MG PO SCH (09:32)
[2021-10-22] MEDS: TRICOR TAB 48 MG PO SCH (09:33)
[2021-10-22] MEDS: ZINC SULFATE PO SCH ×2 (09:33→21:02)
[2021-10-22] MEDS: TOPROL XL PO SCH (09:33)
[2021-10-22] MEDS: VITAMIN D3 125 mcg (5,000 UNITS) PO SCH (09:33)
[2021-10-22] MEDS: PLAVIX PO SCH (09:33)
[2021-10-22] MEDS: VITAMIN A PO SCH (09:33)
[2021-10-22] MEDS: NORVASC TAB 10 MG PO SCH (09:34)
[2021-10-22] MEDS: PEPCID TAB 20 MG PO SCH (09:34)
[2021-10-22] MEDS: LOVENOX INJ 30 MG SYR SC SCH ×2 (09:34→21:01)
[2021-10-22] MEDS: ULTRAM PO PRN (11:01)
[2021-10-23] MEDS: ASCORBIC ACID MULTI IV SCH ×4 (04:57→10:20)
[2021-10-23] MEDS: NS IV SCH ×4 (04:57→10:20)
[2021-10-23] MEDS: APRESOLINE TAB 25 MG PO SCH ×2 (06:28→13:52)
[2021-10-23] MEDS: NEURONTIN CAP 300 MG PO SCH ×2 (06:29→15:00)
[2021-10-23] MEDS: GLUCOPHAGE PO SCH (06:29)
[2021-10-23] MEDS: BROVANA IN SCH (09:01)
[2021-10-23] MEDS: PULMICORT NEB TX 0.5 MG NEB SCH (09:01)
[2021-10-23] MEDS: LEVAQUIN PREMIX IV 750 MG 750 MG/150 ML BAG IV SCH (09:39)
[2021-10-23] MEDS: BENICAR TAB 40 MG PO SCH (09:39)
[2021-10-23] MEDS: ACTOS PO SCH (09:39)
[2021-10-23] MEDS: VITAMIN D3 125 mcg (5,000 UNITS) PO SCH (09:40)
[2021-10-23] MEDS: PEPCID TAB 20 MG PO SCH (09:40)
[2021-10-23] MEDS: NORVASC TAB 10 MG PO SCH (09:40)
[2021-10-23] MEDS: PLAVIX PO SCH (09:40)
[2021-10-23] MEDS: LOVENOX INJ 30 MG SYR SC SCH (09:41)
[2021-10-23] MEDS: TOPROL XL PO SCH ×2 (09:42→10:38)
[2021-10-23] MEDS: TRICOR TAB 48 MG PO SCH (09:42)
[2021-10-23] MEDS: VITAMIN A PO SCH (09:42)
[2021-10-23] MEDS: ZINC SULFATE PO SCH (09:42)
[2021-10-23 16:01] VITALS: BP 112/67
[~2021-10-23 16:30] MED LIST: APRESOLINE INJ 20 MG VIAL IVP ONE; APRESOLINE INJ 20 MG VIAL ONE; APRESOLINE TAB 25 MG ONE; APRESOLINE TAB 25 MG PO ONE; ASCORBIC ACID INJ MULTI-DOSE VIAL IV ONE; COZAAR PO SCH; FIORICET TAB PO ONE; GLUCOPHAGE ONE; GLUCOPHAGE XR 24-HR PO SCH; K-DUR TAB 20 MEQ PO ONE; K-RIDER 10 MEQ/NS 100 ML 10 MEQ/100 ML BAG IV PRN; KLOR-CON PO PRN; LEVAQUIN PREMIX IV 500 MG 500 MG/100 ML BAG IV SCH; LOVENOX INJ 30 MG SYR SC ONE; LR 1,000 ML IV 1,000 ML IV ONE; MAGNESIUM SULFATE 1 GRAM/100 mL PREMIX 1 G/100 ML BAG IV ONE; MICRO K EXTEN CAP 10 MEQ PO PRN; NEURONTIN CAP 400 MG ONE; NORVASC TAB 10 MG ONE; NORVASC TAB 10 MG PO SCH; NS 1,000 ML IV 1,000 ML IV ONE; NS 1,000 ML IV 1,000 ML IV SCH; NS 1,000 ML IV 1,000 ML ONE; NS 100 ML IV 100 ML ONE; NovoLIN R (or HumuLIN R) ONE; PEPCID TAB 40 MG ONE; PEPCID TAB 40 MG PO SCH; PLAVIX ONE; POTASSIUM CHL 40 MEQ/NS 0.45% 500 ML IV PRN; POTASSIUM CHL 60 MEQ/NS 0.45% 500 ML IV PRN; POTASSIUM CHLORIDE LIQ 20 MEQ UDC PO PRN; ROCEPHIN 1 GRAM IV PREMIX 1 G/50 ML IV.SOLN. IV ONE; ROCEPHIN 1 GRAM IV PREMIX 1 G/50 ML IV.SOLN. IV SCH; SOLU-Medrol 40 MG VIAL ONE; TOPROL XL PO ONE; TRICOR TAB 160 MG ONE; ULTRAM ONE; VIBRAMYCIN PO ONE; VITAMIN C ONE; VITAMIN D (1.25MG) PO SCH; ZINC SULFATE ONE; ZOFRAN INJ 4 MG VIAL IVP ONE; ZOFRAN INJ 4 MG VIAL ONE; ZOFRAN TAB 4 MG PO PRN
== END | disposition home or self-care (01) | DRG 64 ==
LOC: ER 10-15 10:37 → OBSVTOIN 10-15 19:06 → U 10-15 19:06 → INTOOBSV 10-15 19:06 → U 10-15 19:43 → ICU 10-16 13:24
PROVIDERS: ADMIT Internal Medicine; ATTEND Obstetrics & Gynecology Obstetrics
DX: G81.04 Flaccid hemiplegia affecting left nondominant side; B96.89 Other specified bacterial agents as the cause of diseases classified elsewhere; B96.5 Pseudomonas (aeruginosa) (mallei) (pseudomallei) as the cause of diseases classified elsewhere; U07.1 COVID-19; R94.31 Abnormal electrocardiogram [ECG] [EKG]; I63.89 Other cerebral infarction; B96.29 Other Escherichia coli [E. coli] as the cause of diseases classified elsewhere; R11.2 Nausea with vomiting, unspecified; R10.84 Generalized abdominal pain; N39.0 Urinary tract infection, site not specified; E11.65 Type 2 diabetes mellitus with hyperglycemia; I10 Essential (primary) hypertension; L89.152 Pressure ulcer of sacral region, stage 2; R13.11 Dysphagia, oral phase; R79.89 Other specified abnormal findings of blood chemistry

== ENCOUNTER 2021-12-12 07:24 | Inpatient (IN) ==
--- NOTE | 2021-12-12 08:14 | DR.AMS ---
HPI <Francisco Javieralbin Buenrostro - Last Filed: 12/12/21 10:49> Time Seen Time Seen by Provider: 12/12/21 08:04 Complaint Cheif Complaint Doctors Comments: 66 y/o [place] evaluation. [place] reports that pt was difficult to arouse this am, seemed confused. Pt better on arrival to ER, states she was just sleeping. Her only complaint is pain of her sacral decubitus. Denies fever, chills, nausea, vomiting, diarrhea or urinary complaints. Pt recently finished treatment for a UTI. COVID-19 Coronavirus risk:travel/contact w/high risk person: No Has patient experienced Coronavirus symptoms: No Reviewed Nurses Notes Reviewed: Yes Source History Provided: Patient and [facility] <KENZIE LEVINE - Last Filed: 01/11/22 09:24> PCP Primary Care Physician: Dr Cisneros Complaint Chief Complaint:: Per [place] staff, pt was lethargic and confused this morning which is not her baseline. On arrival, pt is alert to self but confused. COVID-19 Coronavirus risk:travel/contact w/high risk person: No Has patient experienced Coronavirus symptoms: No Source History Provided: [facility] Mode of Arrival Mode of Arrival: Stretcher Timing Onset of Chief Complaint: 12/12/21 <KENZIE LEVINE - Last Filed: 01/11/22 09:24> PMH Past Medical History: Yes Past Medical History: CVA, Diabetes, Dyslipidemia and Hypertension Past Medical History Comment: CKD Past Surgical History: Yes Surgical History: Cholecystectomy and Ortho Surgery Past Surgical History Comment: R AKA Family History History of Family Medical Conditions: Yes Family Medical History: Diabetes Mellitus, Heart Failure and Hypertension Social History Alcohol Use: None Do you use any recreational Drugs:: No Lives Where: [facility] Travel Risk Coronavirus risk:travel/contact w/high risk person: No Has patient experienced Coronavirus symptoms: No Infectious screening In the last 2 months have you had wt loss of >10#?: NO Have you had fever, night sweats or hemotysis?: No Have you traveled outside the country in the last 6 months?: No Isolation: Standard ROS <Francisco Javier Buenrostro - Last Filed: 12/12/21 10:49> Review of Systems Constitutional: No Symptoms Reported Eyes: No Symptoms Reported ENTM: No Symptoms Reported Respiratoy: No Symptoms Reported Cardiovascular: No Symptoms Reported Gastrointestinal/Abdominal: No Symptoms Reported Genitourinary: No Symptoms Reported Neurological: No Symptoms Reported Musculoskeletal: Back Pain Integumentary: No Symptoms Reported Hematologic/Lymphatic: No Symptoms Reported Psychiatric: No Symptoms Reported All Other Systems: Reviewed and Negative PE <Francisco Javier Buenrostro - Last Filed: 12/12/21 10:49> Vitals Vital Signs: Temp Pulse Resp BP BP Pulse Ox 12/12/21 10:15 61 13 12/12/21 10:00 60 21 116/58 100 12/12/21 09:45 61 15 100 12/12/21 09:35 61 21 124/62 12/12/21 09:30 60 14 12/12/21 09:15 59 L 10 L 12/12/21 09:00 59 L 9 L 109/59 100 12/12/21 08:45 60 15 100 12/12/21 08:30 59 L 23 95/54 100 12/12/21 08:23 61 20 111/55 100 12/12/21 08:22 61 23 100 12/12/21 08:15 60 14 12/12/21 08:04 61 18 12/12/21 07:29 98.4 F 61 13 106/51 100 11/15/21 11:30 172/64 General Limitations: No Limitations General Appearance: Alert and In No Apparent Distress Eyes Eye exam: Normal Appearance ENT ENT Exam: Mucous Membranes Moist Neck Neck Exam: Normal Inspection Respiratory Respiratory Exam: Normal Lung Sounds Bilat; negative Accessory Muscle Use and R espiratory Distress Respiratory Exam: Bilateral: Clear to Auscultation Cardiovascular Cardiovascular Exam: Regular Rate, Normal Rhythm and Normal Heart Sounds Abdominal Exam Abdominal Exam: Normal Inspection, Normal Bowel Sounds and Soft; negative Tenderness Neurological Neurological Exam: Alert, CN II-XII Intact and Other (L sided hemiparesis) <KENZIE LEVINE - Last Filed: 01/11/22 09:24> Vitals Vital Signs: Temp Pulse Resp BP BP Pulse Ox 12/12/21 10:15 61 13 12/12/21 10:00 60 21 116/58 100 12/12/21 09:45 61 15 100 12/12/21 09:35 61 21 124/62 12/12/21 09:30 60 14 12/12/21 09:15 59 L 10 L 12/12/21 09:00 59 L 9 L 109/59 100 12/12/21 08:45 60 15 100 12/12/21 08:30 59 L 23 95/54 100 12/12/21 08:23 61 20 111/55 100 12/12/21 08:22 61 23 100 12/12/21 08:15 60 14 12/12/21 08:04 61 18 12/12/21 07:29 98.4 F 61 13 106/51 100 11/15/21 11:30 172/64 MDM <Francisco Javier Buenrostro - Last Filed: 12/12/21 10:49> Differential Diagnosis Metabolic: Dehydration Infectious: UTI COURSE <Francisco Javier Saurabhleah - Last Filed: 12/12/21 10:49> Treatment Treatment: 66 y/o [place] sent [place] from the [place], after being difficult to arouse. Pt in no distress. BP slightly low. Had a UTI recently, finished cephalexin. Will recheck urine, check baseline labs, and give 500 mls IV NS. 1018 - Labs show TNTC WBCs on U/A. Last cx + for Analisa, given PO diflucan and IV Rocephin here. Cr elevation to 3.5, normally 1.5, c/w BLESSING. Discussed with her attending, Dr Cisneros, will admit. ROR <Francisco Javier Groleah - Last Filed: 12/12/21 10:49> Labs Reviewed Result Diagrams: 12/18/21 04:25 12/18/21 04:25 Laboratory: 12/12/21 08:25 Urine,Catheterized Urine Culture - Final Enterococcus Faecium WBC 10.7 X10^3/uL (3.6-10.0) H 12/12/21 09:08 RBC 2.88 X10^6/uL (3.5-5.4) L 12/12/21 09:08 Hgb 7.6 g/dL (12.0-16.0) L 12/12/21 09:08 Hct 23.8 % (36.0-47.0) L 12/12/21 09:08 MCV 82.5 fL (80.0-100.0) 12/12/21 09:08 MCH 26.4 pg (27.0-34.0) L 12/12/21 09:08 MCHC 32.0 g/dL (33.0-35.0) L 12/12/21 09:08 RDW 16.7 % (11.6-16.5) H 12/12/21 09:08 Plt Count 589 X10^3/uL (150.0-450.0) H 12/12/21 09:08 MPV 7.6 fL (7.4-11.0) 12/12/21 09:08 Neut % (Auto) 67.3 % (42.0-75.0) 12/12/21 09:08 Lymph % (Auto) 22.0 % (21.0-51.0) 12/12/21 09:08 [place] % (Auto) 5.6 % (0.0-13.0) 12/12/21 09:08 Eos % (Auto) 3.3 % (0.9-2.9) H 12/12/21 09:08 Baso % (Auto) 1.8 % (0.2-1.0) H 12/12/21 09:08 Neut # (Auto) 7.2 x10^3/uL (2.2-4.8) H 12/12/21 09:08 Lymph # (Auto) 2.4 X10^3/uL (1.3-2.9) 12/12/21 09:08 [place] # (Auto) 0.6 x10^3/uL (0.3-0.8) 12/12/21 09:08 Eos # (Auto) 0.4 x10^3/uL (0.0-0.2) H 12/12/21 09:08 Baso # (Auto) 0.2 X10^3/uL (0.0-0.1) H 12/12/21 09:08 Absolute Nucleated RBC 0.0 /100WBC 12/12/21 09:08 Sodium 134 mmol/L (136-145) L 12/12/21 09:08 Corrected Sodium TNP 12/12/21 09:08 Potassium 5.1 mmol/L (3.5-5.1) 12/12/21 09:08 Chloride 103 mmol/L (98-107) 12/12/21 09:08 Carbon Dioxide 23.0 mmol/L (21-32) 12/12/21 09:08 BUN 59 mg/dL (7-18) H 12/12/21 09:08 Creatinine 3.68 mg/dL (0.55-1.02) H 12/12/21 09:08 Est GFR (MDRD) Af Amer 16 (>60) L 12/12/21 09:08 Est GFR (MDRD) Non-Af 13 (>60) L 12/12/21 09:08 Glucose 99 mg/dL (65-99) 12/12/21 09:08 POC Glucose (mg/dL) 93 mg/dL (65-99) 12/12/21 07:31 Calcium 8.7 mg/dL (8.5-10.1) 12/12/21 09:08 Corrected Calcium 10.3 mg/dL (8.5-10.1) H 12/12/21 09:08 Total Bilirubin 0.40 mg/dL (0.2-1.0) 12/12/21 09:08 AST 14 Units/L (15-37) L 12/12/21 09:08 ALT 9 Units/L (12-78) L 12/12/21 09:08 Alkaline Phosphatase 99 Units/L (46-116) 12/12/21 09:08 Total Protein 8.2 g/dL (6.4-8.2) 12/12/21 09:08 Albumin 2.0 g/dL (3.4-5.0) L 12/12/21 09:08 Globulin 6.2 g/dL (2.5-4.5) H 12/12/21 09:08 Albumin/Globulin Ratio 0.3 Ratio (1.1-2.1) L 12/12/21 09:08 Specimen Type Catherized urine 12/12/21 08:25 Urine Color Yellow (YELLOW) 12/12/21 08:25 Urine Appearance Cloudy (CLEAR) 12/12/21 08:25 Urine pH 5.0 (5.0 - 8.0) 12/12/21 08:25 Ur Specific [place] 1.020 (1.000-1.030) 12/12/21 08:25 Urine Protein 3+ (NEGATIVE) 12/12/21 08:25 Urine Glucose (UA) Negative (NEGATIVE) 12/12/21 08:25 Urine Ketones Negative (NEGATIVE) 12/12/21 08:25 Urine Blood 2+ (NEGATIVE) 12/12/21 08:25 Urine Nitrite Negative (NEGATIVE) 12/12/21 08:25 Urine Bilirubin Negative (NEGATIVE) 12/12/21 08:25 Urine Urobilinogen Normal (NORMAL) 12/12/21 08:25 Ur Leukocyte Esterase 3+ (NEGATIVE) 12/12/21 08:25 Urine RBC 3-5 /HPF (0-3) A 12/12/21 08:25 Urine WBC Tntc /HPF (0-5) A 12/12/21 08:25 Ur Squamous Epith Cells Few /HPF (NEGATIVE) 12/12/21 08:25 Urine Bacteria 1+ /HPF (NEGATIVE) 12/12/21 08:25 Urine Yeast Few /HPF (NEGATIVE) 12/12/21 08:25 Ur Culture Indicated? Yes/culture set up 12/12/21 08:25 SARS CoV-2 RNA Rapid ANDREW Negative (NEGATIVE) 12/12/21 10:27 <KENZIE LEVINE - Last Filed: 01/11/22 09:24> Labs Reviewed Laboratory: 12/12/21 08:25 Urine,Catheterized Urine Culture - Final Enterococcus Faecium WBC 10.7 X10^3/uL (3.6-10.0) H 12/12/21 09:08 RBC 2.88 X10^6/uL (3.5-5.4) L 12/12/21 09:08 Hgb 7.6 g/dL (12.0-16.0) L 12/12/21 09:08 Hct 23.8 % (36.0-47.0) L 12/12/21 09:08 MCV 82.5 fL (80.0-100.0) 12/12/21 09:08 MCH 26.4 pg (27.0-34.0) L 12/12/21 09:08 MCHC 32.0 g/dL (33.0-35.0) L 12/12/21 09:08 RDW 16.7 % (11.6-16.5) H 12/12/21 09:08 Plt Count 589 X10^3/uL (150.0-450.0) H 12/12/21 09:08 MPV 7.6 fL (7.4-11.0) 12/12/21 09:08 Neut % (Auto) 67.3 % (42.0-75.0) 12/12/21 09:08 Lymph % (Auto) 22.0 % (21.0-51.0) 12/12/21 09:08 [place] % (Auto) 5.6 % (0.0-13.0) 12/12/21 09:08 Eos % (Auto) 3.3 % (0.9-2.9) H 12/12/21 09:08 Baso % (Auto) 1.8 % (0.2-1.0) H 12/12/21 09:08 Neut # (Auto) 7.2 x10^3/uL (2.2-4.8) H 12/12/21 09:08 Lymph # (Auto) 2.4 X10^3/uL (1.3-2.9) 12/12/21 09:08 [place] # (Auto) 0.6 x10^3/uL (0.3-0.8) 12/12/21 09:08 Eos # (Auto) 0.4 x10^3/uL (0.0-0.2) H 12/12/21 09:08 Baso # (Auto) 0.2 X10^3/uL (0.0-0.1) H 12/12/21 09:08 Absolute Nucleated RBC 0.0 /100WBC 12/12/21 09:08 Sodium 134 mmol/L (136-145) L 12/12/21 09:08 Corrected Sodium TNP 12/12/21 09:08 Potassium 5.1 mmol/L (3.5-5.1) 12/12/21 09:08 Chloride 103 mmol/L (98-107) 12/12/21 09:08 Carbon Dioxide 23.0 mmol/L (21-32) 12/12/21 09:08 BUN 59 mg/dL (7-18) H 12/12/21 09:08 Creatinine 3.68 mg/dL (0.55-1.02) H 12/12/21 09:08 Est GFR (MDRD) Af Amer 16 (>60) L 12/12/21 09:08 Est GFR (MDRD) Non-Af 13 (>60) L 12/12/21 09:08 Glucose 99 mg/dL (65-99) 12/12/21 09:08 POC Glucose (mg/dL) 93 mg/dL (65-99) 12/12/21 07:31 Calcium 8.7 mg/dL (8.5-10.1) 12/12/21 09:08 Corrected Calcium 10.3 mg/dL (8.5-10.1) H 12/12/21 09:08 Total Bilirubin 0.40 mg/dL (0.2-1.0) 12/12/21 09:08 AST 14 Units/L (15-37) L 12/12/21 09:08 ALT 9 Units/L (12-78) L 12/12/21 09:08 Alkaline Phosphatase 99 Units/L (46-116) 12/12/21 09:08 Total Protein 8.2 g/dL (6.4-8.2) 12/12/21 09:08 Albumin 2.0 g/dL (3.4-5.0) L 12/12/21 09:08 Globulin 6.2 g/dL (2.5-4.5) H 12/12/21 09:08 Albumin/Globulin Ratio 0.3 Ratio (1.1-2.1) L 12/12/21 09:08 Specimen Type Catherized urine 12/12/21 08:25 Urine Color Yellow (YELLOW) 12/12/21 08:25 Urine Appearance Cloudy (CLEAR) 12/12/21 08:25 Urine pH 5.0 (5.0 - 8.0) 12/12/21 08:25 Ur Specific [place] 1.020 (1.000-1.030) 12/12/21 08:25 Urine Protein 3+ (NEGATIVE) 12/12/21 08:25 Urine Glucose (UA) Negative (NEGATIVE) 12/12/21 08:25 Urine Ketones Negative (NEGATIVE) 12/12/21 08:25 Urine Blood 2+ (NEGATIVE) 12/12/21 08:25 Urine Nitrite Negative (NEGATIVE) 12/12/21 08:25 Urine Bilirubin Negative (NEGATIVE) 12/12/21 08:25 Urine Urobilinogen Normal (NORMAL) 12/12/21 08:25 Ur Leukocyte Esterase 3+ (NEGATIVE) 12/12/21 08:25 Urine RBC 3-5 /HPF (0-3) A 12/12/21 08:25 Urine WBC Tntc /HPF (0-5) A 12/12/21 08:25 Ur Squamous Epith Cells Few /HPF (NEGATIVE) 12/12/21 08:25 Urine Bacteria 1+ /HPF (NEGATIVE) 12/12/21 08:25 Urine Yeast Few /HPF (NEGATIVE) 12/12/21 08:25 Ur Culture Indicated? Yes/culture set up 12/12/21 08:25 SARS CoV-2 RNA Rapid ANDREW Negative (NEGATIVE) 12/12/21 10:27 Opioid <Francisco Javier Buenrostro - Last Filed: 12/12/21 10:49> Opioid Risk Tool Total: 0 Total Score Risk Category: Low Risk Copyright: Adam SIMPSON predicting aberrant behaviors <KENZIE LEVINE - Last Filed: 01/11/22 09:24> Opioid Risk Tool Age (Alexis box if 16-45): No History of Preadolescent Sexual Abuse: No Total: 0 Total Score Risk Category: Low Risk <Francisco Javier Buenrostro - Last Filed: 12/12/21 10:49> Diagnosis Discharge Problem: Complicated urinary tract infection, Acute nontraumatic kidney injury Instructions Instructions: Managing Chronic Back Pain Acute Kidney Injury, Adult Nausea and Vomiting, Adult, [id number] Urinary Tract Infection, Adult, [id number] Chronic Pain, Adult Vomiting, Adult Nausea, Adult, [id number] Chronic Back Pain, [id number] Urosepsis, Adult Forms: Excuse From Work or School Precautions for COVID19 [facility] Patient Portal Social Distancing
[2021-12-12] MEDS ORDERED: NS 500 ML IV 500 ML IV ONE ×2 (08:33→08:42)
[2021-12-12 08:35] LABS: BILIRUBIN,URINE NEGATIVE (NEGATIVE); BLOOD/HEMOGLOBIN,URINE 2+ (NEGATIVE); GLUCOSE, URINE NEGATIVE (NEGATIVE); KETONES,URINE NEGATIVE (NEGATIVE); LEUKOCYTE ESTERASE ,URINE 3+ (NEGATIVE); NITRITES,URINE NEGATIVE (NEGATIVE); PROTEIN,URINE 3+ (NEGATIVE); UROBILINOGEN,URINE NORMAL (NORMAL)
[2021-12-12 08:54] LABS: APPEARANCE,URINE CLOUDY (CLEAR); BACTERIA,URINE 1+ /HPF (NEGATIVE); COLOR,URINE YELLOW (YELLOW); SQUAMOUS EPITHELIAL CELL,UR FEW /HPF (NEGATIVE); YEAST,URINE FEW /HPF (NEGATIVE)
[2021-12-12 09:21] LABS: BASOPHILS # (AUTO) 0.2 X10^3/uL (0.0-0.1); BASOPHILS % (AUTO) 1.8 % (0.2-1.0); EOSINOPHILS # (AUTO) 0.4 x10^3/uL (0.0-0.2); EOSINOPHILS % (AUTO) 3.3 % (0.9-2.9); HEMATOCRIT 23.8 % (36.0-47.0); HEMOGLOBIN 7.6 g/dL (12.0-16.0); LYMPHOCYTES # (AUTO) 2.4 X10^3/uL (1.3-2.9); MEAN CORPUSCULAR HEMOGLOBIN 26.4 pg (27.0-34.0); MEAN CORPUSCULAR VOLUME 82.5 fL (80.0-100.0); MEAN PLATELET VOLUME 7.6 fL (7.4-11.0); MONOCYTES # (AUTO) 0.6 x10^3/uL (0.3-0.8); MONOCYTES % (AUTO) 5.6 % (0.0-13.0); NEUTROPHILS # (AUTO) 7.2 x10^3/uL (2.2-4.8); NEUTROPHILS % (AUTO) 67.3 % (42.0-75.0); RED BLOOD COUNT 2.88 X10^6/uL (3.5-5.4); RED CELL DISTRIBUTION WIDTH 16.7 % (11.6-16.5); WHITE BLOOD COUNT 10.7 X10^3/uL (3.6-10.0)
[2021-12-12] MEDS ORDERED: ROCEPHIN VIAL 1 GRAM 1 G in NS 100 ML IV 100 ML IV ONE (09:23)
[2021-12-12] MEDS ORDERED: DIFLUCAN PO ONE (09:23)
[2021-12-12] MEDS ORDERED: ROCEPHIN VIAL 1 GRAM ONE (09:26)
[2021-12-12] MEDS ORDERED: DIFLUCAN ONE (09:26)
[2021-12-12] MEDS ORDERED: NS 100 ML IV 100 ML ONE (09:27)
[2021-12-12 09:31] LABS: ALANINE AMINOTRANSFERASE 9 Units/L (12-78); ALKALINE PHOSPHATASE 99 Units/L (46-116); BLOOD UREA NITROGEN 59 mg/dL (7-18); CALCIUM 8.7 mg/dL (8.5-10.1); CHLORIDE 103 mmol/L (98-107); COR CA(FOR HYPOALB) 10.3 mg/dL (8.5-10.1); CREATININE 3.68 mg/dL (0.55-1.02); SODIUM 134 mmol/L (136-145); TOTAL PROTEIN 8.2 g/dL (6.4-8.2); eGFR NON BLACK RACES 13 (>60)
[2021-12-12 09:42] LABS: ASPARTATE AMINO TRANSFERASE 14 Units/L (15-37)
[2021-12-12] MEDS ORDERED: MORPHINE SULFATE INJ 4 MG IVP ONE (11:04)
[2021-12-12] MEDS ORDERED: MORPHINE SULFATE INJ 4 MG ONE (11:47)
[2021-12-12] MEDS ORDERED: ROCEPHIN 1 GRAM IV PREMIX 1 G/50 ML IV.SOLN. IV SCH (12:10)
[2021-12-12] MEDS: NS 1,000 ML IV 1,000 ML IV SCH ×2 (12:45→21:53)
[2021-12-12] MEDS: ROCEPHIN VIAL 1 GRAM 1 G in NS 100 ML IV 100 ML IV SCH (12:45)
[2021-12-12 13:19] VITALS: BMI 26.6
[2021-12-12] MEDS ORDERED: PHARMACY CONSULT LTC MEDICATIONS XX SCH (14:00)
[2021-12-13] MEDS: NS 1,000 ML IV 1,000 ML IV SCH ×3 (03:09→21:13)
[2021-12-13 06:41] LABS: BASOPHILS % (AUTO) 0.3 % (0.2-1.0); EOSINOPHILS # (AUTO) 0.3 x10^3/uL (0.0-0.2); EOSINOPHILS % (AUTO) 3.7 % (0.9-2.9); LYMPHOCYTES # (AUTO) 2.3 X10^3/uL (1.3-2.9); LYMPHOCYTES % (AUTO) 25.6 % (21.0-51.0); MEAN CORPUSCULAR HEMOGLOBIN 25.2 pg (27.0-34.0); MEAN CORPUSCULAR HGB CONC 30.9 g/dL (33.0-35.0); MEAN CORPUSCULAR VOLUME 81.4 fL (80.0-100.0); MEAN PLATELET VOLUME 7.8 fL (7.4-11.0); MONOCYTES # (AUTO) 0.7 x10^3/uL (0.3-0.8); MONOCYTES % (AUTO) 7.6 % (0.0-13.0); NEUTROPHILS # (AUTO) 5.7 x10^3/uL (2.2-4.8); NEUTROPHILS % (AUTO) 62.8 % (42.0-75.0); RED BLOOD COUNT 2.45 X10^6/uL (3.5-5.4); RED CELL DISTRIBUTION WIDTH 17.1 % (11.6-16.5); WHITE BLOOD COUNT 9.1 X10^3/uL (3.6-10.0)
[2021-12-13 06:45] LABS: HEMATOCRIT 19.9 % (36.0-47.0); HEMOGLOBIN 6.2 g/dL (12.0-16.0)
[2021-12-13 06:54] LABS: ALANINE AMINOTRANSFERASE 7 Units/L (12-78); ALBUMIN 1.6 g/dL (3.4-5.0); ALKALINE PHOSPHATASE 106 Units/L (46-116); ASPARTATE AMINO TRANSFERASE 21 Units/L (15-37); BLOOD UREA NITROGEN 57 mg/dL (7-18); CALCIUM 8.1 mg/dL (8.5-10.1); CARBON DIOXIDE 19.2 mmol/L (21-32); CHLORIDE 106 mmol/L (98-107); CREATININE 3.32 mg/dL (0.55-1.02); SODIUM 137 mmol/L (136-145); TOTAL PROTEIN 6.9 g/dL (6.4-8.2); eGFR NON BLACK RACES 15 (>60)
[2021-12-13] MEDS ORDERED: NS 1,000 ML IV 1,000 ML IV ONE (07:42)
[2021-12-13] MEDS: ROCEPHIN VIAL 1 GRAM 1 G in NS 100 ML IV 100 ML IV SCH (09:01)
[2021-12-13] MEDS: ULTRAM PO PRN ×2 (09:02→19:34)
[2021-12-13] MEDS ORDERED: ZOFRAN TAB 4 MG PO PRN (11:19)
[2021-12-13] MEDS ORDERED: TOPROL XL PO ONE (13:00)
[2021-12-13] MEDS: NEURONTIN CAP 100 MG PO SCH ×2 (13:49→21:30)
[2021-12-13] MEDS: NORCO 5/325 MG TAB PO PRN ×2 (13:50→21:29)
[2021-12-13] MEDS: TOPROL XL PO SCH (13:50)
[2021-12-13] MEDS: COLACE SYRUP 100 MG UDC PO SCH (13:50)
[2021-12-13] MEDS: VITAMIN D3 125 mcg (5,000 UNITS) PO SCH (13:50)
[2021-12-13] MEDS: PLAVIX PO SCH (13:50)
[2021-12-13] MEDS: APRESOLINE TAB 25 MG PO SCH ×2 (13:50→21:30)
[2021-12-13] MEDS: NORVASC TAB 10 MG PO SCH (13:50)
[2021-12-13] MEDS: BENICAR TAB 40 MG PO SCH (13:51)
[2021-12-13] MEDS ORDERED: GLUCOPHAGE PO SCH (17:00)
[2021-12-14] MEDS: NS 1,000 ML IV 1,000 ML IV SCH ×5 (05:10→20:39)
[2021-12-14] MEDS: APRESOLINE TAB 25 MG PO SCH ×3 (05:11→21:44)
[2021-12-14] MEDS: NEURONTIN CAP 100 MG PO SCH ×3 (05:34→21:44)
[2021-12-14 06:21] LABS: BASOPHILS % (AUTO) 0.3 % (0.2-1.0); EOSINOPHILS # (AUTO) 0.4 x10^3/uL (0.0-0.2); EOSINOPHILS % (AUTO) 4.1 % (0.9-2.9); LYMPHOCYTES # (AUTO) 2.8 X10^3/uL (1.3-2.9); LYMPHOCYTES % (AUTO) 28.2 % (21.0-51.0); MEAN CORPUSCULAR HEMOGLOBIN 27.2 pg (27.0-34.0); MEAN CORPUSCULAR HGB CONC 32.9 g/dL (33.0-35.0); MEAN CORPUSCULAR VOLUME 82.8 fL (80.0-100.0); MEAN PLATELET VOLUME 7.7 fL (7.4-11.0); MONOCYTES # (AUTO) 0.7 x10^3/uL (0.3-0.8); MONOCYTES % (AUTO) 7.3 % (0.0-13.0); NEUTROPHILS % (AUTO) 60.1 % (42.0-75.0); RED BLOOD COUNT 2.15 X10^6/uL (3.5-5.4); RED CELL DISTRIBUTION WIDTH 16.9 % (11.6-16.5)
[2021-12-14 06:30] LABS: ALANINE AMINOTRANSFERASE 8 Units/L (12-78); ALBUMIN 1.6 g/dL (3.4-5.0); ALKALINE PHOSPHATASE 94 Units/L (46-116); ASPARTATE AMINO TRANSFERASE 20 Units/L (15-37); BLOOD UREA NITROGEN 49 mg/dL (7-18); CARBON DIOXIDE 20.8 mmol/L (21-32); CHLORIDE 112 mmol/L (98-107); COR CA(FOR HYPOALB) 9.9 mg/dL (8.5-10.1); CREATININE 2.79 mg/dL (0.55-1.02); SODIUM 142 mmol/L (136-145); TOTAL PROTEIN 6.6 g/dL (6.4-8.2); eGFR NON BLACK RACES 18 (>60)
[2021-12-14 06:31] LABS: HEMATOCRIT 17.8 % (36.0-47.0); HEMOGLOBIN 5.8 g/dL (12.0-16.0)
[2021-12-14] MEDS ORDERED: TOPROL XL PO ONE (07:55)
[2021-12-14] MEDS: BENICAR TAB 40 MG PO SCH (08:38)
--- NOTE | 2021-12-14 08:38 | RAD ---
HISTORYCENTRAL LINE PLACEMENTSTUDYCHEST, 1 VIEWCOMPARISONNoneTECHNIQUEAP view of the chestFINDINGSRight subclavian approach central line with tip within the right atrium. The cardiac and mediastinal contours are within normal limits. The lungs are clear without focal consolidation or segmental collapse. No pleural effusion or pneumothorax. Cholecystectomy.IMPRESSIONNo acute pulmonary process. Right subclavian central head with tip in the right atrium. Consider 2 cm retraction for more optimal placement.Electronically signed by: Sunil Newby (Dec 14, 2021 08:38:43)
[2021-12-14] MEDS: COLACE SYRUP 100 MG UDC PO SCH (08:39)
[2021-12-14] MEDS: PLAVIX PO SCH (08:39)
[2021-12-14] MEDS: VITAMIN D3 125 mcg (5,000 UNITS) PO SCH (08:40)
[2021-12-14] MEDS: ROCEPHIN VIAL 1 GRAM 1 G in NS 100 ML IV 100 ML IV SCH (08:40)
[2021-12-14] MEDS: TOPROL XL PO SCH (08:45)
[2021-12-14] MEDS: NORVASC TAB 10 MG PO SCH (08:45)
[2021-12-14] MEDS: NORCO 5/325 MG TAB PO PRN ×2 (08:46→18:09)
[2021-12-14] MEDS ORDERED: NS 500 ML IV 500 ML IV ONE (09:11)
[2021-12-14] MEDS: ULTRAM PO PRN ×2 (09:51→21:00)
[2021-12-14 15:12] LABS: HEMATOCRIT 23.8 % (36.0-47.0); HEMOGLOBIN 7.8 g/dL (12.0-16.0)
[2021-12-14] MEDS ORDERED: ZOFRAN INJ 4 MG VIAL IVP PRN (20:37)
[2021-12-14] MEDS ORDERED: ZOFRAN INJ 4 MG VIAL ONE (20:53)
[2021-12-15] MEDS ORDERED: NS 250 ML IV 250 ML IV ONE ×2 (00:29→12:15)
[2021-12-15] MEDS: NORCO 5/325 MG TAB PO PRN ×2 (02:48→22:06)
[2021-12-15 04:40] LABS: BASOPHILS % (AUTO) 0.4 % (0.2-1.0); EOSINOPHILS # (AUTO) 0.4 x10^3/uL (0.0-0.2); HEMATOCRIT 24.6 % (36.0-47.0); LYMPHOCYTES # (AUTO) 2.9 X10^3/uL (1.3-2.9); LYMPHOCYTES % (AUTO) 28.3 % (21.0-51.0); MEAN CORPUSCULAR HEMOGLOBIN 28.1 pg (27.0-34.0); MEAN CORPUSCULAR VOLUME 85.1 fL (80.0-100.0); MEAN PLATELET VOLUME 7.5 fL (7.4-11.0); MONOCYTES # (AUTO) 0.9 x10^3/uL (0.3-0.8); MONOCYTES % (AUTO) 8.5 % (0.0-13.0); NEUTROPHILS # (AUTO) 6.1 x10^3/uL (2.2-4.8); NEUTROPHILS % (AUTO) 58.8 % (42.0-75.0); RED BLOOD COUNT 2.89 X10^6/uL (3.5-5.4); RED CELL DISTRIBUTION WIDTH 16.9 % (11.6-16.5); WHITE BLOOD COUNT 10.3 X10^3/uL (3.6-10.0)
[2021-12-15 04:46] LABS: ALBUMIN 1.4 g/dL (3.4-5.0); CALCIUM 7.7 mg/dL (8.5-10.1); CARBON DIOXIDE 21.5 mmol/L (21-32); COR CA(FOR HYPOALB) 9.8 mg/dL (8.5-10.1); CREATININE 2.24 mg/dL (0.55-1.02); TOTAL PROTEIN 6.1 g/dL (6.4-8.2)
[2021-12-15] MEDS: NS 1,000 ML IV 1,000 ML IV SCH ×2 (04:51→14:50)
[2021-12-15 04:55] LABS: HEMOGLOBIN 8.1 g/dL (12.0-16.0)
[2021-12-15] MEDS: NEURONTIN CAP 100 MG PO SCH ×3 (04:59→22:08)
[2021-12-15] MEDS: APRESOLINE TAB 25 MG PO SCH ×3 (04:59→22:08)
[2021-12-15] MEDS: ULTRAM PO PRN (07:51)
[2021-12-15] MEDS ORDERED: TOPROL XL PO ONE (08:11)
[2021-12-15] MEDS: PLAVIX PO SCH (08:38)
[2021-12-15] MEDS: TOPROL XL PO SCH (08:38)
[2021-12-15] MEDS: COLACE SYRUP 100 MG UDC PO SCH (08:38)
[2021-12-15] MEDS: NORVASC TAB 10 MG PO SCH (08:39)
[2021-12-15] MEDS: VITAMIN D3 125 mcg (5,000 UNITS) PO SCH (08:39)
[2021-12-15] MEDS: ROCEPHIN VIAL 1 GRAM 1 G in NS 100 ML IV 100 ML IV SCH (08:39)
[2021-12-15] MEDS: BENICAR TAB 40 MG PO SCH (08:39)
[2021-12-15] MEDS ORDERED: STERILE WATER IRRIGATION IR ONE (09:21)
[2021-12-15] MEDS ORDERED: ZOFRAN INJ 4 MG VIAL IVP ONE (11:00)
[2021-12-15] MEDS: ZYVOX 600MG IV 600 MG/300 ML BAG IV SCH ×2 (11:20→22:08)
[2021-12-15] MEDS ORDERED: DIPRIVAN VIAL 20 ML ONE (13:33)
[2021-12-15] MEDS ORDERED: XYLOCAINE 1 % (PLAIN) ONE (13:35)
[2021-12-15] MEDS ORDERED: BETADINE SOLN ONE ×2 (13:35→15:26)
[2021-12-15] MEDS ORDERED: VERSED ONE (13:36)
[2021-12-15] MEDS ORDERED: FENTANYL VIAL INJ 100 mcg ONE (13:36)
[2021-12-15] MEDS ORDERED: XYLOCAINE 2 % (PLAIN) ONE (13:39)
[2021-12-15] MEDS ORDERED: BENADRYL INJ 50 MG VIAL ONE (13:39)
[2021-12-15] MEDS: REGLAN INJ 10 MG VIAL IVP ONE ×2 (14:00→14:01)
[2021-12-15] MEDS ORDERED: ZOFRAN INJ 4 MG VIAL ONE (14:00)
[2021-12-15] MEDS ORDERED: REGLAN INJ 10 MG VIAL ONE (14:00)
[2021-12-15] MEDS ORDERED: ANCEF VIAL 1 GRAM ONE (16:04)
[2021-12-15] MEDS ORDERED: NS 1,000 ML IV 1,000 ML ONE (16:04)
[2021-12-15] MEDS ORDERED: NS 100 ML IV 100 ML ONE (16:04)
[2021-12-15] MEDS ORDERED: EPHEDRINE SULFATE INJ ONE (16:33)
[2021-12-15] MEDS ORDERED: POLYMYXIN B SULFATE ONE (16:42)
[2021-12-15] MEDS ORDERED: PEPCID 20 MG VIAL ONE (17:42)
[2021-12-15] MEDS: PEPCID 20 MG VIAL 20 MG in NS 50 ML IV 50 ML IV ONE ×2 (17:42→17:43)
[2021-12-15] MEDS ORDERED: NS 50 ML IV 50 ML IV ONE (17:42)
[2021-12-15 19:40] LABS: HEMATOCRIT 31.8 % (36.0-47.0)
[2021-12-15 19:42] LABS: HEMOGLOBIN 10.5 g/dL (12.0-16.0)
[2021-12-16] MEDS: NS 1,000 ML IV 1,000 ML IV SCH ×4 (00:20→13:01)
[2021-12-16] MEDS: APRESOLINE TAB 25 MG PO SCH ×3 (05:12→21:40)
[2021-12-16] MEDS: NEURONTIN CAP 100 MG PO SCH ×3 (05:13→21:40)
[2021-12-16 05:40] LABS: BASOPHILS % (AUTO) 0.3 % (0.2-1.0); EOSINOPHILS # (AUTO) 0.4 x10^3/uL (0.0-0.2); EOSINOPHILS % (AUTO) 3.7 % (0.9-2.9); HEMATOCRIT 29.4 % (36.0-47.0); HEMOGLOBIN 9.8 g/dL (12.0-16.0); LYMPHOCYTES # (AUTO) 2.6 X10^3/uL (1.3-2.9); LYMPHOCYTES % (AUTO) 25.4 % (21.0-51.0); MEAN CORPUSCULAR HEMOGLOBIN 28.6 pg (27.0-34.0); MEAN CORPUSCULAR HGB CONC 33.6 g/dL (33.0-35.0); MEAN CORPUSCULAR VOLUME 85.2 fL (80.0-100.0); MEAN PLATELET VOLUME 7.8 fL (7.4-11.0); MONOCYTES # (AUTO) 0.8 x10^3/uL (0.3-0.8); MONOCYTES % (AUTO) 8.1 % (0.0-13.0); NEUTROPHILS # (AUTO) 6.4 x10^3/uL (2.2-4.8); NEUTROPHILS % (AUTO) 62.5 % (42.0-75.0); RED BLOOD COUNT 3.45 X10^6/uL (3.5-5.4); RED CELL DISTRIBUTION WIDTH 16.3 % (11.6-16.5); WHITE BLOOD COUNT 10.3 X10^3/uL (3.6-10.0)
[2021-12-16 05:46] LABS: ALANINE AMINOTRANSFERASE 6 Units/L (12-78); ALBUMIN 1.5 g/dL (3.4-5.0); ALKALINE PHOSPHATASE 112 Units/L (46-116); ASPARTATE AMINO TRANSFERASE 19 Units/L (15-37); BLOOD UREA NITROGEN 32 mg/dL (7-18); CALCIUM 7.7 mg/dL (8.5-10.1); CARBON DIOXIDE 18.6 mmol/L (21-32); CHLORIDE 114 mmol/L (98-107); COR CA(FOR HYPOALB) 9.7 mg/dL (8.5-10.1); CREATININE 1.73 mg/dL (0.55-1.02); SODIUM 142 mmol/L (136-145); TOTAL PROTEIN 6.1 g/dL (6.4-8.2); eGFR NON BLACK RACES 31 (>60)
[2021-12-16] MEDS ORDERED: TOPROL XL PO ONE (08:29)
[2021-12-16] MEDS: BENICAR TAB 40 MG PO SCH (09:13)
[2021-12-16] MEDS: TOPROL XL PO SCH (09:14)
[2021-12-16] MEDS: PLAVIX PO SCH (09:14)
[2021-12-16] MEDS: NORVASC TAB 10 MG PO SCH (09:14)
[2021-12-16] MEDS: ZYVOX 600MG IV 600 MG/300 ML BAG IV SCH ×2 (09:15→21:40)
[2021-12-16] MEDS: VITAMIN D3 125 mcg (5,000 UNITS) PO SCH (09:16)
--- NOTE | 2021-12-16 11:31 | DR.PROGNOT ---
Hospital Progress Notes - Progress Note for Day of: Progress Note Date: 12/16/21 - Chief Complaint Chief Complaint: post op excisional debridement of sacral ulcer stage 4 . moderate drainage .. stable VS . - Past Medical Family Social History Past Med/Fam/Surg Hx: No changes since H&P Allergies: Allergies No Known Drug Allergies Allergy (Verified 10/15/21 10:45) - Review Of Systems ROS: No change since H&P - Vital Signs Vital Signs: Temperature 97.9 F Pulse Rate [Left Radial] 67 Pulse Rate 61 Respiratory Rate 17 Blood Pressure [Left Arm] 119/59 Blood Pressure [Right Arm] 127/61 Blood Pressure 112/56 O2 Sat by Pulse Oximetry 98 - Physical Exam Eyes: Normal Ear: Normal Nose: Normal Throat: Normal Respiratory: Normal Cardiovascular: Normal : Normal GI:Auscultation: Normal Skin: Other (large sacral decubitus ulcer . no necrosis or abscess now .) Mood Description: Calm Speech Pattern: Unclear - Laboratory and Diagnostics Result Diagrams: 12/16/21 05:05 12/16/21 05:05 Labs: 12/15/21 16:49 Sacral Wound Gram Stain - Final 12/15/21 16:49 Sacral Wound Culture - Preliminary 12/14/21 17:48 Sacral Wound Gram Stain - Final 12/14/21 17:48 Sacral Wound Culture - Preliminary 12/12/21 08:25 Urine,Catheterized Urine Culture - Final Enterococcus Faecium Laboratory WBC 10.3 X10^3/uL (3.6-10.0) H 12/16/21 05:05 RBC 3.45 X10^6/uL (3.5-5.4) L 12/16/21 05:05 Hgb 9.8 g/dL (12.0-16.0) L 12/16/21 05:05 Hct 29.4 % (36.0-47.0) L 12/16/21 05:05 MCV 85.2 fL (80.0-100.0) 12/16/21 05:05 MCH 28.6 pg (27.0-34.0) 12/16/21 05:05 MCHC 33.6 g/dL (33.0-35.0) 12/16/21 05:05 RDW 16.3 % (11.6-16.5) 12/16/21 05:05 Plt Count 385 X10^3/uL (150.0-450.0) 12/16/21 05:05 MPV 7.8 fL (7.4-11.0) 12/16/21 05:05 Neut % (Auto) 62.5 % (42.0-75.0) 12/16/21 05:05 Lymph % (Auto) 25.4 % (21.0-51.0) 12/16/21 05:05 [place] % (Auto) 8.1 % (0.0-13.0) 12/16/21 05:05 Eos % (Auto) 3.7 % (0.9-2.9) H 12/16/21 05:05 Baso % (Auto) 0.3 % (0.2-1.0) 12/16/21 05:05 Neut # (Auto) 6.4 x10^3/uL (2.2-4.8) H 12/16/21 05:05 Lymph # (Auto) 2.6 X10^3/uL (1.3-2.9) 12/16/21 05:05 [place] # (Auto) 0.8 x10^3/uL (0.3-0.8) 12/16/21 05:05 Eos # (Auto) 0.4 x10^3/uL (0.0-0.2) H 12/16/21 05:05 Baso # (Auto) 0.0 X10^3/uL (0.0-0.1) 12/16/21 05:05 Absolute Nucleated RBC 0.1 /100WBC 12/16/21 05:05 Sodium 142 mmol/L (136-145) 12/16/21 05:05 Corrected Sodium TNP 12/16/21 05:05 Potassium 3.8 mmol/L (3.5-5.1) 12/16/21 05:05 Chloride 114 mmol/L (98-107) H 12/16/21 05:05 Carbon Dioxide 18.6 mmol/L (21-32) L 12/16/21 05:05 BUN 32 mg/dL (7-18) H 12/16/21 05:05 Creatinine 1.73 mg/dL (0.55-1.02) H 12/16/21 05:05 Est GFR (MDRD) Af Amer 38 (>60) L 12/16/21 05:05 Est GFR (MDRD) Non-Af 31 (>60) L 12/16/21 05:05 Glucose 100 mg/dL (65-99) H 12/16/21 05:05 POC Glucose (mg/dL) 94 mg/dL (65-99) 12/16/21 04:53 Calcium 7.7 mg/dL (8.5-10.1) L 12/16/21 05:05 Corrected Calcium 9.7 mg/dL (8.5-10.1) 12/16/21 05:05 Total Bilirubin 0.20 mg/dL (0.2-1.0) 12/16/21 05:05 AST 19 Units/L (15-37) 12/16/21 05:05 ALT 6 Units/L (12-78) L 12/16/21 05:05 Alkaline Phosphatase 112 Units/L (46-116) 12/16/21 05:05 Total Protein 6.1 g/dL (6.4-8.2) L 12/16/21 05:05 Albumin 1.5 g/dL (3.4-5.0) L 12/16/21 05:05 Globulin 4.6 g/dL (2.5-4.5) H 12/16/21 05:05 Albumin/Globulin Ratio 0.3 Ratio (1.1-2.1) L 12/16/21 05:05 Specimen Type Catherized urine 12/12/21 08:25 Urine Color Yellow (YELLOW) 12/12/21 08:25 Urine Appearance Cloudy (CLEAR) 12/12/21 08:25 Urine pH 5.0 (5.0 - 8.0) 12/12/21 08:25 Ur Specific [place] 1.020 (1.000-1.030) 12/12/21 08:25 Urine Protein 3+ (NEGATIVE) 12/12/21 08:25 Urine Glucose (UA) Negative (NEGATIVE) 12/12/21 08:25 Urine Ketones Negative (NEGATIVE) 12/12/21 08:25 Urine Blood 2+ (NEGATIVE) 12/12/21 08:25 Urine Nitrite Negative (NEGATIVE) 12/12/21 08:25 Urine Bilirubin Negative (NEGATIVE) 12/12/21 08:25 Urine Urobilinogen Normal (NORMAL) 12/12/21 08:25 Ur Leukocyte Esterase 3+ (NEGATIVE) 12/12/21 08:25 Urine RBC 3-5 /HPF (0-3) A 12/12/21 08:25 Urine WBC Tntc /HPF (0-5) A 12/12/21 08:25 Ur Squamous Epith Cells Few /HPF (NEGATIVE) 12/12/21 08:25 Urine Bacteria 1+ /HPF (NEGATIVE) 12/12/21 08:25 Urine Yeast Few /HPF (NEGATIVE) 12/12/21 08:25 Ur Culture Indicated? Yes/culture set up 12/12/21 08:25 SARS CoV-2 RNA Rapid ANDREW Negative (NEGATIVE) 12/12/21 10:27 Tissue Pathology To follow 12/15/21 16:48 Blood Type B NEGATIVE 12/13/21 08:05 Antibody Screen Negative 12/13/21 08:05 Antibody ID Referred Anti-D Anti-I 12/13/21 08:05 Antibody ID Referred Anti-D Anti-I 12/13/21 08:05 Crossmatch See Detail 12/13/21 08:05 - Assessment and Plan 1: large infected sacral decubitus ulcer . ( s/p debridement ) . same local care and application of wound vac next week .. - Problem Patient Problems: Patient Problems Complicated urinary tract infection (Acute) N39.0 Acute nontraumatic kidney injury (Acute) N17.9
[2021-12-16] MEDS: COLACE SYRUP 100 MG UDC PO SCH (12:57)
[2021-12-16] MEDS: NORCO 5/325 MG TAB PO PRN ×2 (15:09→23:22)
[2021-12-17] MEDS: NS 1,000 ML IV 1,000 ML IV SCH ×4 (04:14→21:44)
[2021-12-17 04:32] LABS: HEMATOCRIT 30.7 % (36.0-47.0); WHITE BLOOD COUNT 11.6 X10^3/uL (3.6-10.0)
[2021-12-17 04:36] LABS: BASOPHILS % (AUTO) 0.3 % (0.2-1.0); EOSINOPHILS # (AUTO) 0.4 x10^3/uL (0.0-0.2); EOSINOPHILS % (AUTO) 3.8 % (0.9-2.9); HEMOGLOBIN 10.3 g/dL (12.0-16.0); LYMPHOCYTES # (AUTO) 2.7 X10^3/uL (1.3-2.9); MEAN CORPUSCULAR HEMOGLOBIN 28.2 pg (27.0-34.0); MEAN CORPUSCULAR HGB CONC 33.4 g/dL (33.0-35.0); MEAN CORPUSCULAR VOLUME 84.7 fL (80.0-100.0); MEAN PLATELET VOLUME 7.5 fL (7.4-11.0); MONOCYTES # (AUTO) 0.8 x10^3/uL (0.3-0.8); MONOCYTES % (AUTO) 6.5 % (0.0-13.0); NEUTROPHILS # (AUTO) 7.7 x10^3/uL (2.2-4.8); NEUTROPHILS % (AUTO) 66.4 % (42.0-75.0); RED BLOOD COUNT 3.63 X10^6/uL (3.5-5.4); RED CELL DISTRIBUTION WIDTH 16.6 % (11.6-16.5)
[2021-12-17 04:46] LABS: ALANINE AMINOTRANSFERASE < 6 Units/L (12-78); ALBUMIN 1.5 g/dL (3.4-5.0); ALKALINE PHOSPHATASE 111 Units/L (46-116); ASPARTATE AMINO TRANSFERASE 13 Units/L (15-37); BLOOD UREA NITROGEN 21 mg/dL (7-18); CALCIUM 7.7 mg/dL (8.5-10.1); CHLORIDE 112 mmol/L (98-107); COR CA(FOR HYPOALB) 9.7 mg/dL (8.5-10.1); CREATININE 1.38 mg/dL (0.55-1.02); SODIUM 141 mmol/L (136-145); TOTAL PROTEIN 6.4 g/dL (6.4-8.2); eGFR NON BLACK RACES 41 (>60)
[2021-12-17] MEDS: APRESOLINE TAB 25 MG PO SCH ×3 (06:04→21:47)
[2021-12-17] MEDS: NEURONTIN CAP 100 MG PO SCH ×3 (06:04→21:49)
[2021-12-17] MEDS: NORCO 5/325 MG TAB PO PRN (09:01)
[2021-12-17] MEDS ORDERED: TOPROL XL PO ONE (09:43)
[2021-12-17] MEDS: ZYVOX 600MG IV 600 MG/300 ML BAG IV SCH ×2 (09:46→21:46)
[2021-12-17] MEDS: TOPROL XL PO SCH (09:46)
[2021-12-17] MEDS: VITAMIN D3 125 mcg (5,000 UNITS) PO SCH (09:46)
[2021-12-17] MEDS: PLAVIX PO SCH (09:47)
[2021-12-17] MEDS: NORVASC TAB 10 MG PO SCH (09:48)
[2021-12-17] MEDS: COLACE SYRUP 100 MG UDC PO SCH (09:48)
[2021-12-17] MEDS: BENICAR TAB 40 MG PO SCH (09:49)
[2021-12-18] MEDS: NS 1,000 ML IV 1,000 ML IV SCH ×3 (04:05→12:55)
[2021-12-18 05:03] LABS: BASOPHILS % (AUTO) 0.3 % (0.2-1.0); EOSINOPHILS # (AUTO) 0.4 x10^3/uL (0.0-0.2); EOSINOPHILS % (AUTO) 3.9 % (0.9-2.9); HEMOGLOBIN 10.3 g/dL (12.0-16.0); LYMPHOCYTES # (AUTO) 2.5 X10^3/uL (1.3-2.9); LYMPHOCYTES % (AUTO) 23.9 % (21.0-51.0); MEAN CORPUSCULAR HEMOGLOBIN 28.3 pg (27.0-34.0); MEAN CORPUSCULAR HGB CONC 33.4 g/dL (33.0-35.0); MEAN CORPUSCULAR VOLUME 84.8 fL (80.0-100.0); MEAN PLATELET VOLUME 7.7 fL (7.4-11.0); MONOCYTES # (AUTO) 0.7 x10^3/uL (0.3-0.8); MONOCYTES % (AUTO) 6.4 % (0.0-13.0); NEUTROPHILS % (AUTO) 65.5 % (42.0-75.0); RED BLOOD COUNT 3.65 X10^6/uL (3.5-5.4); RED CELL DISTRIBUTION WIDTH 17.1 % (11.6-16.5); WHITE BLOOD COUNT 10.6 X10^3/uL (3.6-10.0)
[2021-12-18 05:10] LABS: ALANINE AMINOTRANSFERASE < 6 Units/L (12-78); ALBUMIN 1.5 g/dL (3.4-5.0); ALKALINE PHOSPHATASE 114 Units/L (46-116); ASPARTATE AMINO TRANSFERASE 14 Units/L (15-37); BLOOD UREA NITROGEN 15 mg/dL (7-18); CALCIUM 7.8 mg/dL (8.5-10.1); CARBON DIOXIDE 20.7 mmol/L (21-32); CHLORIDE 111 mmol/L (98-107); COR CA(FOR HYPOALB) 9.8 mg/dL (8.5-10.1); COR NA(FOR HYPERGLY) 140 mmol/L (136-145); CREATININE 1.17 mg/dL (0.55-1.02); SODIUM 140 mmol/L (136-145); TOTAL PROTEIN 6.4 g/dL (6.4-8.2); eGFR NON BLACK RACES 49 (>60)
[2021-12-18] MEDS: NORCO 5/325 MG TAB PO PRN (05:28)
[2021-12-18] MEDS: APRESOLINE TAB 25 MG PO SCH (05:36)
[2021-12-18] MEDS: NEURONTIN CAP 100 MG PO SCH ×2 (05:36→14:11)
[2021-12-18] MEDS ORDERED: POTASSIUM CHL 60 MEQ/NS 0.45% 500 ML IV PRN (06:23)
[2021-12-18] MEDS ORDERED: K-DUR TAB 20 MEQ PO PRN (06:23)
[2021-12-18] MEDS ORDERED: MICRO K EXTEN CAP 10 MEQ PO PRN (06:23)
[2021-12-18] MEDS ORDERED: POTASSIUM CHLORIDE LIQ 20 MEQ UDC PO PRN (06:23)
[2021-12-18] MEDS ORDERED: K-RIDER 10 MEQ/NS 100 ML 10 MEQ/100 ML BAG IV PRN (06:23)
[2021-12-18] MEDS ORDERED: KLOR-CON PO PRN (06:23)
[2021-12-18] MEDS ORDERED: POTASSIUM CHL 40 MEQ/NS 0.45% 500 ML IV PRN (06:23)
[2021-12-18] MEDS: MAGNESIUM SULFATE 1 GRAM/100 mL PREMIX 1 G/100 ML BAG IV PRN ×3 (07:17→11:22)
[2021-12-18] MEDS ORDERED: TOPROL XL PO ONE (09:40)
[2021-12-18] MEDS ORDERED: GLUCOPHAGE ONE (09:40)
[2021-12-18] MEDS: VITAMIN D3 125 mcg (5,000 UNITS) PO SCH (09:41)
[2021-12-18] MEDS: NORVASC TAB 10 MG PO SCH (09:42)
[2021-12-18] MEDS: COLACE SYRUP 100 MG UDC PO SCH (09:42)
[2021-12-18] MEDS: BENICAR TAB 40 MG PO SCH (09:42)
[2021-12-18] MEDS: PLAVIX PO SCH (09:43)
[2021-12-18] MEDS: TOPROL XL PO SCH (09:43)
[2021-12-18] MEDS: ZYVOX 600MG IV 600 MG/300 ML BAG IV SCH (09:45)
[2021-12-18] MEDS: ULTRAM PO PRN (10:46)
[2021-12-18] MEDS ORDERED: MAG-OX TAB PO ONE (11:46)
[2021-12-18 12:04] VITALS: BP 132/68
[2021-12-18] MEDS ORDERED: APRESOLINE TAB 25 MG PO SCH (14:00)
== END 2021-12-18 14:20 | DRG 689 ==
LOC: ER 07:24 → MED/SURG 10:29
PROVIDERS: ADMIT Obstetrics & Gynecology Obstetrics; ATTEND Obstetrics & Gynecology Obstetrics

== ENCOUNTER 2022-01-05 15:33 | Inpatient (IN) ==
--- NOTE | 2022-01-05 15:49 | DR.GENAD ---
HPI Time Seen Time Seen by Provider: 01/05/22 15:46 Complaint/Symptoms Chief Complaint Doctors Comments: PATIENT SENT OVER FROM CARE HOME BECAUSE HER SACRAL DECUBITI INCREASED IN SIZE AND THE AREA DEVELOPED A PUNGENT ODOR AND THEY THINK THAT SHE MIGHT BE SEPTIC. COVID-19 Coronavirus risk:travel/contact w/high risk person: No Has patient experienced Coronavirus symptoms: No PMH PMH Past Medical History: CVA, Diabetes, Dyslipidemia and Hypertension Past Surgical History: Yes Surgical History: Cholecystectomy and Other Family History Family Medical History: Diabetes Mellitus, Heart Failure and Hypertension Social History Do you use any recreational Drugs:: No Travel Risk Coronavirus risk:travel/contact w/high risk person: No Has patient experienced Coronavirus symptoms: No ROS Review of Systems Constitutional: Weakness Eyes: No Symptoms Reported ENTM: No Symptoms Reported Respiratoy: No Symptoms Reported Cardiovascular: No Symptoms Reported Gastrointestinal/Abdominal: No Symptoms Reported Genitourinary: No Symptoms Reported Neurological: No Symptoms Reported Musculoskeletal: No Symptoms Reported Integumentary: No Symptoms Reported and Other (SACRAL DECUBITI WITH INCREASED DRAINAGE AND EXTENSION WITH FOWL ODOR) Hematologic/Lymphatic: No Symptoms Reported Endocrine: No Symptoms Reported Psychiatric: No Symptoms Reported All Other Systems: Reviewed and Negative PE Vital Signs Vitals: Temperature 97.8 F Pulse Rate 81 Respiratory Rate 20 Blood Pressure [Left Arm] 119/59 Blood Pressure [Right Arm] 132/68 Blood Pressure 121/56 O2 Sat by Pulse Oximetry 99 General Limitations: Physical Limitation General Appearance: Alert, In No Apparent Distress and In Distress (MODERATE DISTRESS) Head Head Exam: Normal Inspection Eyes Eye exam: Normal Appearance ENT ENT Exam: Normal Exam External Ear Exam: Normal External Inspection TM/Canal Exam: Bilateral: Normal Nose Exam: Normal Nose Exam Mouth Exam: Normal Inspection Throat Exam: Normal Inspection Neck Neck Exam: Normal Inspection Chest Chest Inspection: Normal Inspection Respiratory Respiratory Exam: Normal Lung Sounds Bilat Respiratory Exam: Bilateral: Clear to Auscultation Cardiovascular Cardiovascular Exam: Regular Rate and Normal Rhythm Abdominal Exam Abdominal Exam: Normal Inspection, Normal Bowel Sounds and Soft Extremities Extremities Exam: Normal Inspection and Other (R AKA) Back Back Exam: Normal Inspection and Other (5X5 SACRAL DECUBITI) Neurologic Neurological Exam: Alert and Oriented X3 Psychiatric Psychiatric Exam: Normal Affect and Normal Mood Skin Skin Exam: Warm, Dry, Intact, Normal Color and Other (6X5 SACRAL DECUBITI) MDM Additional Information Findings: SACRAL DECUBITI,SEPSIS,UTI Differential Diagnosis Differential Diagnosis: SACRAL DECUBITI,SEPSIS COURSE Treatment Treatment: PATIENT REMAINED STABLE DURING ER EVALUATION. WAS FOUND TO HAVE A HGB OF 5.5 AND WBC OF 16.5. ALSO HAD TMTC WBC'S ON UA AND LE +3. WILL KAMRYN A CENTRAL LINE AND DR BANUELOS STATED THAT HE WOULD COME IN AND PUT ONE IN TODAY OR TILA RROW. THE PATIENT CURRENTLY HAS A 22GA PERIPHERAL IV IN. SPOKE TO DR VILLALTA AT 1838 AND HE STATED TO ADMIT THE PATIENT AND GIVE THE 2 UNITS OF BLOOD AND START ROCEPHINE 1 GRAM IV Q 24 FOR UTI AND SACRAL DECUBITI. ROR Labs Reviewed Laboratory Results Reviewed?: Yes Result Diagrams: 01/05/22 16:17 01/05/22 16:17 Laboratory: WBC 16.5 X10^3/uL (3.6-10.0) H 01/05/22 16:17 RBC 2.02 X10^6/uL (3.5-5.4) L 01/05/22 16:17 Hgb 5.5 g/dL (12.0-16.0) L* D 01/05/22 16:17 Hct 17.1 % (36.0-47.0) L* 01/05/22 16:17 MCV 84.8 fL (80.0-100.0) 01/05/22 16:17 MCH 27.3 pg (27.0-34.0) 01/05/22 16:17 MCHC 32.2 g/dL (33.0-35.0) L 01/05/22 16:17 RDW 18.0 % (11.6-16.5) H 01/05/22 16:17 Plt Count 524 X10^3/uL (150.0-450.0) H 01/05/22 16:17 MPV 8.1 fL (7.4-11.0) 01/05/22 16:17 Neut % (Auto) 73.5 % (42.0-75.0) 01/05/22 16:17 Lymph % (Auto) 17.2 % (21.0-51.0) L 01/05/22 16:17 [place] % (Auto) 7.6 % (0.0-13.0) 01/05/22 16:17 Eos % (Auto) 1.5 % (0.9-2.9) 01/05/22 16:17 Baso % (Auto) 0.2 % (0.2-1.0) 01/05/22 16:17 Neut # (Auto) 12.2 x10^3/uL (2.2-4.8) H 01/05/22 16:17 Lymph # (Auto) 2.8 X10^3/uL (1.3-2.9) 01/05/22 16:17 [place] # (Auto) 1.3 x10^3/uL (0.3-0.8) H 01/05/22 16:17 Eos # (Auto) 0.3 x10^3/uL (0.0-0.2) H 01/05/22 16:17 Baso # (Auto) 0.0 X10^3/uL (0.0-0.1) 01/05/22 16:17 Absolute Nucleated RBC 0.2 /100WBC 01/05/22 16:17 Sodium 141 mmol/L (136-145) 01/05/22 16:17 Corrected Sodium 142 mmol/L (136-145) 01/05/22 16:17 Potassium 4.8 mmol/L (3.5-5.1) 01/05/22 16:17 Chloride 111 mmol/L (98-107) H 01/05/22 16:17 Carbon Dioxide 25.6 mmol/L (21-32) 01/05/22 16:17 BUN 48 mg/dL (7-18) H 01/05/22 16:17 Creatinine 1.82 mg/dL (0.55-1.02) H 01/05/22 16:17 Est GFR (MDRD) Af Amer 36 (>60) L 01/05/22 16:17 Est GFR (MDRD) Non-Af 29 (>60) L 01/05/22 16:17 Glucose 125 mg/dL (65-99) H 01/05/22 16:17 Lactic Acid 0.7 mmol/L (0.4-2.0) 01/05/22 16:17 Calcium 8.6 mg/dL (8.5-10.1) 01/05/22 16:17 Corrected Calcium 10.6 mg/dL (8.5-10.1) H 01/05/22 16:17 Total Bilirubin 0.20 mg/dL (0.2-1.0) 01/05/22 16:17 AST 21 Units/L (15-37) 01/05/22 16:17 ALT 9 Units/L (12-78) L 01/05/22 16:17 Alkaline Phosphatase 96 Units/L (46-116) 01/05/22 16:17 Total Protein 6.8 g/dL (6.4-8.2) 01/05/22 16:17 Albumin 1.5 g/dL (3.4-5.0) L 01/05/22 16:17 Globulin 5.3 g/dL (2.5-4.5) H 01/05/22 16:17 Albumin/Globulin Ratio 0.3 Ratio (1.1-2.1) L 01/05/22 16:17 Specimen Type Catherized urine 01/05/22 16:34 Urine Color Yellow (YELLOW) 01/05/22 16:34 Urine Appearance Cloudy (CLEAR) 01/05/22 16:34 Urine pH 6.0 (5.0 - 8.0) 01/05/22 16:34 Ur Specific [place] 1.010 (1.000-1.030) 01/05/22 16:34 Urine Protein 3+ (NEGATIVE) 01/05/22 16:34 Urine Glucose (UA) Negative (NEGATIVE) 01/05/22 16:34 Urine Ketones Negative (NEGATIVE) 01/05/22 16:34 Urine Blood 2+ (NEGATIVE) 01/05/22 16:34 Urine Nitrite Negative (NEGATIVE) 01/05/22 16:34 Urine Bilirubin Negative (NEGATIVE) 01/05/22 16:34 Urine Urobilinogen Normal (NORMAL) 01/05/22 16:34 Ur Leukocyte Esterase 3+ (NEGATIVE) 01/05/22 16:34 Urine RBC Tntc /HPF (0-3) A 01/05/22 16:34 Urine WBC Tntc /HPF (0-5) A 01/05/22 16:34 Ur Squamous Epith Cells Rare /HPF (NEGATIVE) 01/05/22 16:34 Urine Bacteria Trace /HPF (NEGATIVE) 01/05/22 16:34 Ur Culture Indicated? Yes/culture set up 01/05/22 16:34 SARS-CoV-2 (PCR) Negative (NEGATIVE) 01/05/22 16:33 Crossmatch See Detail 01/05/22 18:25 XRAY XRAY Interpreted by: Radiologist X-ray Results: CHEST XRAY WAS NEGATIVE FOR INFILTRATE. Opioid Opioid Risk Tool Age (Alexis box if 16-45): No History of Preadolescent Sexual Abuse: No Total: 0 Total Score Risk Category: Low Risk Copyright: Adam SIMPSON predicting aberrant behaviors Diagnosis Discharge Problem: Acute UTI (urinary tract infection), Decubitus ulcer of sacral region, stage 4 Anemia Qualifiers: Qualified Code(s): D64.9 - Anemia, unspecified Instructions Forms: Precautions for COVID19 [facility] Patient [facility] Social Distancing
--- NOTE | 2022-01-05 16:25 | RAD ---
HISTORYPt brought to ER from [facility] for worsening of sacral wound..brNausea .br Relevant Clinical InformationSTUDYCHEST, 1 VIEWCOMPARISONChest x-ray dated December 14, 2021FINDINGSThe trachea is midline. The cardiac silhouette is unchanged. The lungs are clear without focal infiltrate, pneumothorax, or effusion. The bony thorax is unremarkable.IMPRESSIONNo acute cardiopulmonary findings .Electronically signed by: ROMERO RICHTER (Jan 05, 2022 16:24:22)
[2022-01-05 16:35] LABS: BASOPHILS % (AUTO) 0.2 % (0.2-1.0); EOSINOPHILS # (AUTO) 0.3 x10^3/uL (0.0-0.2); EOSINOPHILS % (AUTO) 1.5 % (0.9-2.9); LYMPHOCYTES # (AUTO) 2.8 X10^3/uL (1.3-2.9); LYMPHOCYTES % (AUTO) 17.2 % (21.0-51.0); MEAN CORPUSCULAR HEMOGLOBIN 27.3 pg (27.0-34.0); MEAN CORPUSCULAR HGB CONC 32.2 g/dL (33.0-35.0); MEAN CORPUSCULAR VOLUME 84.8 fL (80.0-100.0); MEAN PLATELET VOLUME 8.1 fL (7.4-11.0); MONOCYTES # (AUTO) 1.3 x10^3/uL (0.3-0.8); MONOCYTES % (AUTO) 7.6 % (0.0-13.0); NEUTROPHILS # (AUTO) 12.2 x10^3/uL (2.2-4.8); NEUTROPHILS % (AUTO) 73.5 % (42.0-75.0); RED BLOOD COUNT 2.02 X10^6/uL (3.5-5.4); WHITE BLOOD COUNT 16.5 X10^3/uL (3.6-10.0)
[2022-01-05 16:50] LABS: LACTIC ACID 0.7 mmol/L (0.4-2.0)
[2022-01-05 16:57] LABS: ALBUMIN 1.5 g/dL (3.4-5.0); CALCIUM 8.6 mg/dL (8.5-10.1); CARBON DIOXIDE 25.6 mmol/L (21-32); COR CA(FOR HYPOALB) 10.6 mg/dL (8.5-10.1); CREATININE 1.82 mg/dL (0.55-1.02); HEMOGLOBIN 5.5 g/dL (12.0-16.0); TOTAL PROTEIN 6.8 g/dL (6.4-8.2)
[2022-01-05 16:58] LABS: HEMATOCRIT 17.1 % (36.0-47.0)
[2022-01-05 17:12] LABS: BILIRUBIN,URINE NEGATIVE (NEGATIVE); BLOOD/HEMOGLOBIN,URINE 2+ (NEGATIVE); GLUCOSE, URINE NEGATIVE (NEGATIVE); KETONES,URINE NEGATIVE (NEGATIVE); LEUKOCYTE ESTERASE ,URINE 3+ (NEGATIVE); NITRITES,URINE NEGATIVE (NEGATIVE); PROTEIN,URINE 3+ (NEGATIVE); UROBILINOGEN,URINE NORMAL (NORMAL)
[2022-01-05 17:41] LABS: APPEARANCE,URINE CLOUDY (CLEAR); COLOR,URINE YELLOW (YELLOW)
[2022-01-05 17:42] LABS: BACTERIA,URINE TRACE /HPF (NEGATIVE); RBC,URINE TNTC /HPF (0-3); SQUAMOUS EPITHELIAL CELL,UR RARE /HPF (NEGATIVE)
[2022-01-05] MEDS ORDERED: ROCEPHIN 1 GRAM IV PREMIX 1 G/50 ML IV.SOLN. IV ONE ×2 (18:43→19:11)
[2022-01-05] MEDS ORDERED: NS 1,000 ML IV 1,000 ML ONE (19:10)
[2022-01-05] MEDS ORDERED: ZOFRAN TAB 4 MG PO PRN (19:25)
[2022-01-05] MEDS: APRESOLINE TAB 25 MG PO SCH (21:31)
[2022-01-05] MEDS: ULTRAM PO PRN (21:32)
[2022-01-05] MEDS: NEURONTIN CAP 300 MG PO SCH (21:32)
[2022-01-05] MEDS: ACTOS PO SCH (21:57)
[2022-01-05] MEDS ORDERED: PATIENT'S HOME MEDICATION (Hydralazine 100 mg tablet) PO SCH (22:00)
[2022-01-06] MEDS ORDERED: PHARMACY CONSULT LTC MEDICATIONS XX SCH (01:00)
[2022-01-06] MEDS: APRESOLINE TAB 25 MG PO SCH ×3 (05:43→21:31)
[2022-01-06] MEDS: NEURONTIN CAP 300 MG PO SCH ×3 (05:44→21:33)
[2022-01-06 07:01] LABS: BASOPHILS % (AUTO) 0.4 % (0.2-1.0); EOSINOPHILS # (AUTO) 0.3 x10^3/uL (0.0-0.2); EOSINOPHILS % (AUTO) 2.3 % (0.9-2.9); HEMATOCRIT 23.6 % (36.0-47.0); HEMOGLOBIN 7.4 g/dL (12.0-16.0); LYMPHOCYTES # (AUTO) 2.5 X10^3/uL (1.3-2.9); MEAN CORPUSCULAR HEMOGLOBIN 27.2 pg (27.0-34.0); MEAN CORPUSCULAR HGB CONC 31.5 g/dL (33.0-35.0); MEAN CORPUSCULAR VOLUME 86.2 fL (80.0-100.0); MEAN PLATELET VOLUME 8.4 fL (7.4-11.0); MONOCYTES # (AUTO) 0.9 x10^3/uL (0.3-0.8); MONOCYTES % (AUTO) 6.7 % (0.0-13.0); NEUTROPHILS # (AUTO) 9.9 x10^3/uL (2.2-4.8); NEUTROPHILS % (AUTO) 72.6 % (42.0-75.0); RED BLOOD COUNT 2.74 X10^6/uL (3.5-5.4); RED CELL DISTRIBUTION WIDTH 18.5 % (11.6-16.5); WHITE BLOOD COUNT 13.6 X10^3/uL (3.6-10.0)
[2022-01-06 07:23] LABS: ALANINE AMINOTRANSFERASE 10 Units/L (12-78); ALBUMIN 1.4 g/dL (3.4-5.0); ALKALINE PHOSPHATASE 92 Units/L (46-116); ASPARTATE AMINO TRANSFERASE 25 Units/L (15-37); BLOOD UREA NITROGEN 38 mg/dL (7-18); CALCIUM 8.5 mg/dL (8.5-10.1); CARBON DIOXIDE 22.9 mmol/L (21-32); CHLORIDE 109 mmol/L (98-107); COR CA(FOR HYPOALB) 10.6 mg/dL (8.5-10.1); CREATININE 1.58 mg/dL (0.55-1.02); SODIUM 139 mmol/L (136-145); TOTAL PROTEIN 6.7 g/dL (6.4-8.2); eGFR NON BLACK RACES 35 (>60)
[2022-01-06] MEDS ORDERED: ZINC 100 MG PO SCH (09:00)
[2022-01-06] MEDS: VITAMIN D3 125 mcg (5,000 UNITS) PO SCH (09:43)
[2022-01-06] MEDS: COLACE CAP 100 MG PO SCH (09:43)
[2022-01-06] MEDS: TOPROL XL PO SCH (09:43)
[2022-01-06] MEDS: BENICAR TAB 40 MG PO SCH (09:43)
[2022-01-06] MEDS: NORVASC TAB 10 MG PO SCH ×2 (09:43→09:44)
[2022-01-06] MEDS: ZINC SULFATE PO SCH (09:43)
[2022-01-06] MEDS: ULTRAM PO PRN ×2 (09:55→20:15)
[2022-01-06] MEDS ORDERED: LR 1,000 ML IV 1,000 ML IV ONE (11:22)
[2022-01-06] MEDS ORDERED: PROCRIT or EPOGEN VIAL 10,000 UNITS SC ONE (11:25)
[2022-01-06] MEDS ORDERED: PHARMACY CONSULT - VANCOMYCIN XX SCH (12:00)
[2022-01-06] MEDS: LR 1,000 ML IV 1,000 ML IV SCH ×2 (13:30→21:36)
[2022-01-06] MEDS: THIAMINE HCL INJ IVP SCH ×2 (13:30→21:33)
[2022-01-06] MEDS: ASCORBIC ACID INJ MULTI-DOSE VIAL 1,500 MG in NS 50 ML IV 50 ML IV SCH ×3 (13:30→21:34)
[2022-01-06] MEDS: SOLU-Cortef INJ IVP SCH ×3 (13:30→21:32)
[2022-01-06] MEDS: ZYVOX 600MG IV 600 MG/300 ML BAG IV SCH ×2 (13:30→21:33)
[2022-01-06] MEDS: ZOSYN VIAL 3.375 GRAMS 3.375 G in NS 100 ML IV 100 ML IV SCH ×2 (13:31→21:24)
[2022-01-06 13:42] VITALS: BMI 28.6
[2022-01-06] MEDS: VITAMIN C PO SCH (15:48)
[2022-01-06] MEDS ORDERED: NS 100 ML IV 100 ML ONE (22:22)
[2022-01-06] MEDS ORDERED: NS 500 ML IV 500 ML IV ONE (23:25)
[2022-01-07] MEDS: ASCORBIC ACID INJ MULTI-DOSE VIAL 1,500 MG in NS 50 ML IV 50 ML IV SCH ×4 (02:40→21:13)
[2022-01-07] MEDS: APRESOLINE TAB 25 MG PO SCH ×3 (04:59→21:14)
[2022-01-07] MEDS: LR 1,000 ML IV 1,000 ML IV SCH ×3 (04:59→21:13)
[2022-01-07] MEDS: NEURONTIN CAP 300 MG PO SCH ×3 (04:59→21:15)
[2022-01-07] MEDS: ZOSYN VIAL 3.375 GRAMS 3.375 G in NS 100 ML IV 100 ML IV SCH ×3 (05:00→23:00)
[2022-01-07 06:32] LABS: BASOPHILS % (AUTO) 0.2 % (0.2-1.0); EOSINOPHILS % (AUTO) 0.1 % (0.9-2.9); HEMATOCRIT 21.9 % (36.0-47.0); HEMOGLOBIN 7.2 g/dL (12.0-16.0); LYMPHOCYTES # (AUTO) 1.3 X10^3/uL (1.3-2.9); LYMPHOCYTES % (AUTO) 10.8 % (21.0-51.0); MEAN CORPUSCULAR HEMOGLOBIN 27.8 pg (27.0-34.0); MEAN CORPUSCULAR VOLUME 84.3 fL (80.0-100.0); MEAN PLATELET VOLUME 8.2 fL (7.4-11.0); MONOCYTES # (AUTO) 0.3 x10^3/uL (0.3-0.8); MONOCYTES % (AUTO) 2.4 % (0.0-13.0); NEUTROPHILS # (AUTO) 10.5 x10^3/uL (2.2-4.8); NEUTROPHILS % (AUTO) 86.5 % (42.0-75.0); RED CELL DISTRIBUTION WIDTH 18.7 % (11.6-16.5); WHITE BLOOD COUNT 12.2 X10^3/uL (3.6-10.0)
[2022-01-07 06:48] LABS: ALBUMIN 1.2 g/dL (3.4-5.0); CALCIUM 7.9 mg/dL (8.5-10.1); CARBON DIOXIDE 23.6 mmol/L (21-32); COR CA(FOR HYPOALB) 10.1 mg/dL (8.5-10.1); CREATININE 1.59 mg/dL (0.55-1.02); TOTAL PROTEIN 6.2 g/dL (6.4-8.2)
[2022-01-07] MEDS: ACTOS PO SCH ×2 (08:37→21:14)
[2022-01-07] MEDS: COLACE CAP 100 MG PO SCH (08:48)
[2022-01-07] MEDS: VITAMIN D3 125 mcg (5,000 UNITS) PO SCH (08:49)
[2022-01-07] MEDS: THIAMINE HCL INJ IVP SCH ×2 (08:49→21:14)
[2022-01-07] MEDS: ZINC SULFATE PO SCH (08:49)
[2022-01-07] MEDS: SOLU-Cortef INJ IVP SCH ×4 (08:49→21:14)
[2022-01-07] MEDS: ZYVOX 600MG IV 600 MG/300 ML BAG IV SCH ×2 (08:49→21:14)
[2022-01-07] MEDS: ULTRAM PO PRN (08:50)
[2022-01-07] MEDS ORDERED: NS 250 ML IV 250 ML IV ONE (15:10)
[2022-01-07] MEDS: VITAMIN C PO SCH (16:28)
[2022-01-07 20:00] LABS: HEMOGLOBIN 11.5 g/dL (12.0-16.0)
[2022-01-08] MEDS: ASCORBIC ACID INJ MULTI-DOSE VIAL 1,500 MG in NS 50 ML IV 50 ML IV SCH ×4 (03:33→21:08)
[2022-01-08] MEDS: NEURONTIN CAP 300 MG PO SCH ×3 (04:59→21:08)
[2022-01-08] MEDS: ZOSYN VIAL 3.375 GRAMS 3.375 G in NS 100 ML IV 100 ML IV SCH ×3 (04:59→21:08)
[2022-01-08] MEDS: APRESOLINE TAB 25 MG PO SCH ×3 (04:59→21:08)
[2022-01-08] MEDS: LR 1,000 ML IV 1,000 ML IV SCH ×4 (04:59→20:44)
[2022-01-08 06:19] LABS: BASOPHILS % (AUTO) 0.1 % (0.2-1.0); HEMATOCRIT 34.3 % (36.0-47.0); HEMOGLOBIN 11.7 g/dL (12.0-16.0); LYMPHOCYTES # (AUTO) 1.7 X10^3/uL (1.3-2.9); MEAN CORPUSCULAR HEMOGLOBIN 29.2 pg (27.0-34.0); MEAN CORPUSCULAR HGB CONC 34.1 g/dL (33.0-35.0); MEAN CORPUSCULAR VOLUME 85.5 fL (80.0-100.0); MEAN PLATELET VOLUME 8.3 fL (7.4-11.0); MONOCYTES # (AUTO) 0.4 x10^3/uL (0.3-0.8); MONOCYTES % (AUTO) 2.7 % (0.0-13.0); NEUTROPHILS % (AUTO) 85.2 % (42.0-75.0); RED BLOOD COUNT 4.02 X10^6/uL (3.5-5.4); RED CELL DISTRIBUTION WIDTH 18.3 % (11.6-16.5); WHITE BLOOD COUNT 14.1 X10^3/uL (3.6-10.0)
[2022-01-08 06:32] LABS: ALBUMIN 1.5 g/dL (3.4-5.0); CALCIUM 8.2 mg/dL (8.5-10.1); CARBON DIOXIDE 24.8 mmol/L (21-32); COR CA(FOR HYPOALB) 10.2 mg/dL (8.5-10.1); CREATININE 1.52 mg/dL (0.55-1.02); TOTAL PROTEIN 7.4 g/dL (6.4-8.2)
[2022-01-08] MEDS ORDERED: BETADINE SOLN ONE ×2 (07:06→10:30)
[2022-01-08 07:31] LABS: METAMYELOCYTES % 2; PLATELET MORPHOLOGY COMMENT NORMAL (NORMAL); TARGET CELLS PRESENT
[2022-01-08] MEDS: SOLU-Cortef INJ IVP SCH (08:16)
[2022-01-08] MEDS: THIAMINE HCL INJ IVP SCH ×2 (08:16→21:08)
[2022-01-08] MEDS: COLACE CAP 100 MG PO SCH (08:22)
[2022-01-08] MEDS: ZYVOX 600MG IV 600 MG/300 ML BAG IV SCH ×2 (08:22→21:08)
[2022-01-08] MEDS: ZINC SULFATE PO SCH (08:22)
[2022-01-08] MEDS: TOPROL XL PO SCH (08:22)
[2022-01-08] MEDS: ACTOS PO SCH (08:22)
[2022-01-08] MEDS: VITAMIN D3 125 mcg (5,000 UNITS) PO SCH (08:22)
[2022-01-08] MEDS ORDERED: KETAMINE HCL ONE (09:45)
[2022-01-08] MEDS ORDERED: XYLOCAINE 2 % (PLAIN) ONE (09:45)
[2022-01-08] MEDS ORDERED: DIPRIVAN VIAL 20 ML ONE ×2 (09:55→10:39)
[2022-01-08] MEDS ORDERED: POLYMYXIN B SULFATE ONE (10:29)
[2022-01-08] MEDS ORDERED: XYLOCAINE 1 % (PLAIN) ONE (10:29)
[2022-01-08] MEDS ORDERED: FENTANYL VIAL INJ 100 mcg ONE (10:34)
[2022-01-08] MEDS ORDERED: OFIRMEV IV 1000 MG VIAL 1,000 MG/100 ML VIAL IV ONE (10:44)
[2022-01-08] MEDS ORDERED: EPHEDRINE SULFATE INJ ONE (11:14)
[2022-01-08] MEDS ORDERED: VERSED ONE (11:24)
--- NOTE | 2022-01-08 11:43 | OR.IMMED ---
Immediate Post-Op Note - Immediate Post-Op Note Pre-Op Diagnosis: dysphagia . .poor oral intake ..large sacral ulcer . Post-Op Diagnosis: esophagitis . large infected sacral ulcer.. need for nutritional support . Procedure: EGD with Bs . placement of PEG feeding tube .. Surgeon/[employer]: DR Crockett . Specimens Removed: Bx from the esophagus .. Estimated Blood Loss: none . Drains: NONE Complications: none . Condition: Stable (to keep NPO for 24 h)
--- NOTE | 2022-01-08 11:48 | OR.IMMED ---
Immediate Post-Op Note - Immediate Post-Op Note Pre-Op Diagnosis: large infected sacral ulcer . Post-Op Diagnosis: large necrotic 14 x 12 x 6 cm stage 4 sacral ulcer .. with exposed bone . Procedure: excisional debridement of large 14 x 12 x 6 cm stage 4 sacral ulcer . Surgeon/Lathmaker: Dr Crockett Specimens Removed: necrotic tissue , sacral ulcer .. Estimated Blood Loss: 60 to 80 cc Drains: NONE Complications: none Condition: Stable (to change the packing daily)
--- NOTE | 2022-01-08 12:37 | DR.UPDATE ---
H&P Update History and Physical Update: History and Physical reviewed and patient examined. Changes noted: NO Yes with the following:will place CVL for fluid/abx management H&P Reviewed: Yes Patient was examined?: Yes Procedures (ALL) - Central Line Placement PCM.CLCO: written consent Time out performed: Yes Patient placed pm monitor/pulse ox: Yes MD prep: mask, gown, gloves, other Centrial line prep: chlorhexidine scrub, sterile drapes applied Local anesthsia used: lidocane 1% Ultrasound used for placement: Yes (right IJ id'd via u/s and cannulation visualized) Central line lumen ininserted: triple Post procedure xray: tip oc catheter in good position, no pneumothorax seen Patient tolerated procedure: Yes Complications: none
--- NOTE | 2022-01-08 13:12 | RAD ---
CHEST, 1 VIEWHISTORY: CENTRAL LINE PLACEMENTStudy: Single view of the chest.Comparison: January 05, 2022Findings:No change in the appearance of cardiopulmonary structures. A right central catheter terminates over the expected area of the SVC.IMPRESSION:1.No change in the appearance of cardiopulmonary structures.2. A central catheter terminating over the expected area of the .Electronically signed by: NEGRO LOCKE (Jan 08, 2022 13:10:55)
[2022-01-08] MEDS: VITAMIN C PO SCH (16:27)
[2022-01-08] MEDS ORDERED: ZOFRAN INJ 4 MG VIAL ONE (22:15)
[2022-01-08] MEDS: ZOFRAN INJ 4 MG VIAL IVP PRN (22:25)
[2022-01-09] MEDS: ASCORBIC ACID INJ MULTI-DOSE VIAL 1,500 MG in NS 50 ML IV 50 ML IV SCH ×4 (02:15→20:35)
[2022-01-09] MEDS: LR 1,000 ML IV 1,000 ML IV SCH ×5 (02:15→19:51)
[2022-01-09] MEDS: NEURONTIN CAP 300 MG PO SCH ×3 (05:49→21:00)
[2022-01-09] MEDS: APRESOLINE TAB 25 MG PO SCH ×3 (05:49→23:37)
[2022-01-09] MEDS: ZOSYN VIAL 3.375 GRAMS 3.375 G in NS 100 ML IV 100 ML IV SCH ×3 (05:50→22:50)
[2022-01-09 06:23] LABS: BASOPHILS % (AUTO) 0.1 % (0.2-1.0); EOSINOPHILS # (AUTO) 0.1 x10^3/uL (0.0-0.2); EOSINOPHILS % (AUTO) 0.4 % (0.9-2.9); HEMATOCRIT 27.7 % (36.0-47.0); HEMOGLOBIN 9.1 g/dL (12.0-16.0); LYMPHOCYTES # (AUTO) 3.1 X10^3/uL (1.3-2.9); LYMPHOCYTES % (AUTO) 25.2 % (21.0-51.0); MEAN CORPUSCULAR HEMOGLOBIN 28.2 pg (27.0-34.0); MEAN CORPUSCULAR VOLUME 85.5 fL (80.0-100.0); MEAN PLATELET VOLUME 8.1 fL (7.4-11.0); MONOCYTES # (AUTO) 0.7 x10^3/uL (0.3-0.8); MONOCYTES % (AUTO) 5.6 % (0.0-13.0); NEUTROPHILS # (AUTO) 8.5 x10^3/uL (2.2-4.8); NEUTROPHILS % (AUTO) 68.7 % (42.0-75.0); RED BLOOD COUNT 3.24 X10^6/uL (3.5-5.4); WHITE BLOOD COUNT 12.5 X10^3/uL (3.6-10.0)
[2022-01-09 06:35] LABS: ALANINE AMINOTRANSFERASE 9 Units/L (12-78); ALBUMIN 1.3 g/dL (3.4-5.0); ALKALINE PHOSPHATASE 77 Units/L (46-116); ASPARTATE AMINO TRANSFERASE 21 Units/L (15-37); BLOOD UREA NITROGEN 25 mg/dL (7-18); CALCIUM 7.6 mg/dL (8.5-10.1); CARBON DIOXIDE 23.2 mmol/L (21-32); CHLORIDE 107 mmol/L (98-107); COR CA(FOR HYPOALB) 9.8 mg/dL (8.5-10.1); CREATININE 1.35 mg/dL (0.55-1.02); SODIUM 142 mmol/L (136-145); eGFR NON BLACK RACES 42 (>60)
[2022-01-09] MEDS ORDERED: POTASSIUM CHL 60 MEQ/NS 0.45% 500 ML IV PRN (07:03)
[2022-01-09] MEDS ORDERED: POTASSIUM CHLORIDE LIQ 20 MEQ UDC PO PRN (07:03)
[2022-01-09] MEDS ORDERED: K-DUR TAB 20 MEQ PO PRN (07:03)
[2022-01-09] MEDS ORDERED: MICRO K EXTEN CAP 10 MEQ PO PRN (07:03)
[2022-01-09] MEDS ORDERED: KLOR-CON PO PRN (07:03)
[2022-01-09] MEDS ORDERED: POTASSIUM CHL 40 MEQ/NS 0.45% 500 ML IV PRN (07:03)
[2022-01-09 07:24] LABS: METAMYELOCYTES % 6; PLATELET MORPHOLOGY COMMENT NORMAL (NORMAL)
[2022-01-09] MEDS ORDERED: TOPROL XL PO ONE (07:50)
[2022-01-09] MEDS: ACTOS PO SCH (08:47)
[2022-01-09] MEDS: TOPROL XL PO SCH (08:48)
[2022-01-09] MEDS: ZINC SULFATE PO SCH (08:48)
[2022-01-09] MEDS: NORVASC TAB 10 MG PO SCH (08:48)
[2022-01-09] MEDS: NORCO 5/325 MG TAB PO PRN ×2 (08:49→15:53)
[2022-01-09] MEDS: BENICAR TAB 40 MG PO SCH (08:49)
[2022-01-09] MEDS: COLACE CAP 100 MG PO SCH (08:51)
[2022-01-09] MEDS: ZYVOX 600MG IV 600 MG/300 ML BAG IV SCH ×2 (08:51→21:07)
[2022-01-09] MEDS: VITAMIN D3 125 mcg (5,000 UNITS) PO SCH (08:52)
[2022-01-09] MEDS: THIAMINE HCL INJ IVP SCH ×2 (08:52→20:38)
[2022-01-09] MEDS ORDERED: NS 100 ML IV 100 ML ONE (08:59)
[2022-01-09] MEDS ORDERED: MAGNESIUM SULFATE 1 GRAM/100 mL PREMIX 4 G/400 ML BAG IV ONE (09:32)
[2022-01-09] MEDS: MAGNESIUM SULFATE 1 GRAM/100 mL PREMIX 1 G/100 ML BAG IV PRN ×4 (09:36→13:00)
[2022-01-09] MEDS: K-RIDER 10 MEQ/NS 100 ML 10 MEQ/100 ML BAG IV PRN ×4 (10:53→14:05)
[2022-01-09] MEDS: VITAMIN C PO SCH (15:53)
[2022-01-09] MEDS: ZOFRAN INJ 4 MG VIAL IVP PRN (18:40)
[2022-01-10] MEDS: ASCORBIC ACID INJ MULTI-DOSE VIAL 1,500 MG in NS 50 ML IV 50 ML IV SCH ×4 (02:15→20:59)
[2022-01-10] MEDS: LR 1,000 ML IV 1,000 ML IV SCH ×4 (03:23→21:07)
[2022-01-10] MEDS: APRESOLINE TAB 25 MG PO SCH ×3 (05:17→21:00)
[2022-01-10] MEDS: NEURONTIN CAP 300 MG PO SCH ×3 (05:17→21:00)
[2022-01-10] MEDS: ZOSYN VIAL 3.375 GRAMS 3.375 G in NS 100 ML IV 100 ML IV SCH ×3 (05:17→21:07)
[2022-01-10 06:29] LABS: ALANINE AMINOTRANSFERASE 10 Units/L (12-78); ALBUMIN 1.3 g/dL (3.4-5.0); ALKALINE PHOSPHATASE 81 Units/L (46-116); ASPARTATE AMINO TRANSFERASE 18 Units/L (15-37); BLOOD UREA NITROGEN 20 mg/dL (7-18); CALCIUM 7.6 mg/dL (8.5-10.1); CARBON DIOXIDE 24.3 mmol/L (21-32); CHLORIDE 107 mmol/L (98-107); COR CA(FOR HYPOALB) 9.8 mg/dL (8.5-10.1); CREATININE 1.17 mg/dL (0.55-1.02); MAGNESIUM 2.1 mg/dL (1.7-2.9); SODIUM 139 mmol/L (136-145); TOTAL PROTEIN 5.8 g/dL (6.4-8.2); eGFR NON BLACK RACES 49 (>60)
[2022-01-10 06:33] LABS: BASOPHILS % (AUTO) 0.1 % (0.2-1.0); EOSINOPHILS # (AUTO) 0.3 x10^3/uL (0.0-0.2); EOSINOPHILS % (AUTO) 2.6 % (0.9-2.9); HEMATOCRIT 26.8 % (36.0-47.0); HEMOGLOBIN 8.9 g/dL (12.0-16.0); LYMPHOCYTES # (AUTO) 2.8 X10^3/uL (1.3-2.9); LYMPHOCYTES % (AUTO) 21.2 % (21.0-51.0); MEAN CORPUSCULAR HEMOGLOBIN 28.5 pg (27.0-34.0); MEAN CORPUSCULAR HGB CONC 33.4 g/dL (33.0-35.0); MEAN CORPUSCULAR VOLUME 85.3 fL (80.0-100.0); MONOCYTES # (AUTO) 1.1 x10^3/uL (0.3-0.8); MONOCYTES % (AUTO) 8.1 % (0.0-13.0); NEUTROPHILS # (AUTO) 9.1 x10^3/uL (2.2-4.8); RED BLOOD COUNT 3.14 X10^6/uL (3.5-5.4); RED CELL DISTRIBUTION WIDTH 18.2 % (11.6-16.5); WHITE BLOOD COUNT 13.4 X10^3/uL (3.6-10.0)
[2022-01-10 07:25] LABS: BAND NEUTROPHILS % 4 % (0-10); METAMYELOCYTES % 3; PLATELET MORPHOLOGY COMMENT NORMAL (NORMAL)
[2022-01-10 07:26] LABS: ANISOCYTOSIS SLIGHT
[2022-01-10] MEDS ORDERED: TOPROL XL PO ONE (08:35)
[2022-01-10] MEDS: ZINC SULFATE PO SCH (09:04)
[2022-01-10] MEDS: ZYVOX 600MG IV 600 MG/300 ML BAG IV SCH ×2 (09:04→21:12)
[2022-01-10] MEDS: COLACE CAP 100 MG PO SCH (09:05)
[2022-01-10] MEDS: ACTOS PO SCH (09:05)
[2022-01-10] MEDS: TOPROL XL PO SCH (09:05)
[2022-01-10] MEDS: BENICAR TAB 40 MG PO SCH (09:05)
[2022-01-10] MEDS: THIAMINE HCL INJ IVP SCH ×2 (09:05→20:59)
[2022-01-10] MEDS: NORVASC TAB 10 MG PO SCH (09:05)
[2022-01-10] MEDS: VITAMIN D3 125 mcg (5,000 UNITS) PO SCH (09:05)
[2022-01-10] MEDS ORDERED: PROCRIT or EPOGEN VIAL 10,000 UNITS SC ONE (09:39)
[2022-01-10] MEDS: VITAMIN C PO SCH (15:48)
--- NOTE | 2022-01-10 16:04 | DR.PROGNOT ---
Hospital Progress Notes - Progress Note for Day of: Progress Note Date: 01/10/22 - Chief Complaint Chief Complaint: stable . poor oral intake . mild drainage from sacral ulcer . - Past Medical Family Social History Past Med/Fam/Surg Hx: No changes since H&P Allergies: Allergies No Known Drug Allergies Allergy (Verified 10/15/21 10:45) - Review Of Systems ROS: No change since H&P - Vital Signs Vital Signs: Temperature 98.6 F Pulse Rate [Brachial] 60 Pulse Rate 93 Respiratory Rate 18 Blood Pressure [Left Arm] 130/65 Blood Pressure [Right Arm] 113/58 Blood Pressure 138/71 O2 Sat by Pulse Oximetry 98 - Physical Exam Oriented: Normal Eyes: Normal Ear: Normal Nose: Normal Throat: Normal Respiratory: Normal Cardiovascular: Normal : Normal GI:Auscultation: Normal GI:Palpation: Normal GI: Tenderness: Other (mild tenderness around PEG tube ..NS+) Mood Description: Calm Speech Pattern: Clear, Appropriate - Laboratory and Diagnostics Result Diagrams: 01/10/22 05:22 01/10/22 05:22 Labs: 01/08/22 11:29 Sacral Wound Gram Stain - Final 01/08/22 11:29 Sacral Wound Culture - Final Methicillin Resis Staph Aureus Enterococcus Faecalis 01/05/22 16:30 Sacral Wound Gram Stain - Final 01/05/22 16:30 Sacral Wound Culture - Final Methicillin Resis Staph Aureus Klebsiella Pneumoniae Streptococcus Anginosus 01/05/22 16:34 Urine,Catheterized Urine Culture - Final Enterococcus Faecium 01/05/22 16:17 Blood Blood Culture - Final Laboratory WBC 13.4 X10^3/uL (3.6-10.0) H 01/10/22 05:22 RBC 3.14 X10^6/uL (3.5-5.4) L 01/10/22 05:22 Hgb 8.9 g/dL (12.0-16.0) L 01/10/22 05: Hct 26.8 % (36.0-47.0) L 01/10/22 05:22 MCV 85.3 fL (80.0-100.0) 01/10/22 05:22 MCH 28.5 pg (27.0-34.0) 01/10/22 05: MCHC 33.4 g/dL (33.0-35.0) 01/10/22 05:22 RDW 18.2 % (11.6-16.5) H 01/10/22 05:22 Plt Count 440 X10^3/uL (150.0-450.0) 01/10/22 05:22 Plt Count Comment Adequate (ADEQUATE) 01/10/22 05:22 MPV 8.0 fL (7.4-11.0) 01/10/22 05:22 Neut % (Auto) 68.0 % (42.0-75.0) 01/10/22 05:22 Lymph % (Auto) 21.2 % (21.0-51.0) 01/10/22 05:22 [place] % (Auto) 8.1 % (0.0-13.0) 01/10/22 05:22 Eos % (Auto) 2.6 % (0.9-2.9) 01/10/22 05:22 Baso % (Auto) 0.1 % (0.2-1.0) L 01/10/22 05:22 Neut # (Auto) 9.1 x10^3/uL (2.2-4.8) H 01/10/22 05:22 Lymph # (Auto) 2.8 X10^3/uL (1.3-2.9) 01/10/22 05:22 [place] # (Auto) 1.1 x10^3/uL (0.3-0.8) H 01/10/22 05:22 Eos # (Auto) 0.3 x10^3/uL (0.0-0.2) H 01/10/22 05:22 Baso # (Auto) 0.0 X10^3/uL (0.0-0.1) 01/10/22 05:22 Absolute Nucleated RBC 0.2 /100WBC 01/10/22 05:22 Total Counted 100 01/10/22 05:22 Neutrophils % (Manual) 69 % (39-76) 01/10/22 05:22 Band Neutrophils % 4 % (0-10) 01/10/22 05:22 Lymphocytes % (Manual) 17 % (13-43) 01/10/22 05:22 Monocytes % (Manual) 6 % (4-9) 01/10/22 05:22 Eosinophils % (Manual) 1 % (0-6) 01/10/22 05:22 Metamyelocytes % 3 01/10/22 05:22 Nucleated RBCs 1 01/09/22 05:45 Plt Morphology Comment Normal (NORMAL) 01/10/22 05:22 RBC Morphology Abnormal (NORMAL) A 01/10/22 05:22 Anisocytosis Slight A 01/10/22 05:22 Target Cells Present 01/08/22 05:37 Sodium 139 mmol/L (136-145) 01/10/22 05:22 Corrected Sodium TNP 01/10/22 05:22 Potassium 3.7 mmol/L (3.5-5.1) 01/10/22 05:22 Chloride 107 mmol/L (98-107) 01/10/22 05:22 Carbon Dioxide 24.3 mmol/L (21-32) 01/10/22 05:22 BUN 20 mg/dL (7-18) H 01/10/22 05:22 Creatinine 1.17 mg/dL (0.55-1.02) H 01/10/22 05:22 Est GFR (MDRD) Af Amer 59 (>60) 01/10/22 05:22 Est GFR (MDRD) Non-Af 49 (>60) L 01/10/22 05:22 Glucose 89 mg/dL (65-99) 01/10/22 05:22 POC Glucose (mg/dL) 112 mg/dL (65-99) H 01/10/22 11:08 Lactic Acid 0.7 mmol/L (0.4-2.0) 01/05/22 16:17 Calcium 7.6 mg/dL (8.5-10.1) L 01/10/22 05:22 Corrected Calcium 9.8 mg/dL (8.5-10.1) 01/10/22 05:22 Magnesium 2.1 mg/dL (1.7-2.9) 01/10/22 05:22 Total Bilirubin 0.20 mg/dL (0.2-1.0) 01/10/22 05:22 AST 18 Units/L (15-37) 01/10/22 05:22 ALT 10 Units/L (12-78) L 01/10/22 05:22 Alkaline Phosphatase 81 Units/L (46-116) 01/10/22 05:22 Total Protein 5.8 g/dL (6.4-8.2) L 01/10/22 05:22 Albumin 1.3 g/dL (3.4-5.0) L 01/10/22 05:22 Globulin 4.5 g/dL (2.5-4.5) 01/10/22 05:22 Albumin/Globulin Ratio 0.3 Ratio (1.1-2.1) L 01/10/22 05:22 Specimen Type Catherized urine 01/05/22 16:34 Urine Color Yellow (YELLOW) 01/05/22 16:34 Urine Appearance Cloudy (CLEAR) 01/05/22 16:34 Urine pH 6.0 (5.0 - 8.0) 01/05/22 16:34 Ur Specific [place] 1.010 (1.000-1.030) 01/05/22 16:34 Urine Protein 3+ (NEGATIVE) 01/05/22 16:34 Urine Glucose (UA) Negative (NEGATIVE) 01/05/22 16:34 Urine Ketones Negative (NEGATIVE) 01/05/22 16:34 Urine Blood 2+ (NEGATIVE) 01/05/22 16:34 Urine Nitrite Negative (NEGATIVE) 01/05/22 16:34 Urine Bilirubin Negative (NEGATIVE) 01/05/22 16:34 Urine Urobilinogen Normal (NORMAL) 01/05/22 16:34 Ur Leukocyte Esterase 3+ (NEGATIVE) 01/05/22 16:34 Urine RBC Tntc /HPF (0-3) A 01/05/22 16:34 Urine WBC Tntc /HPF (0-5) A 01/05/22 16:34 Ur Squamous Epith Cells Rare /HPF (NEGATIVE) 01/05/22 16:34 Urine Bacteria Trace /HPF (NEGATIVE) 01/05/22 16:34 Ur Culture Indicated? Yes/culture set up 01/05/22 16:34 SARS-CoV-2 (PCR) Negative (NEGATIVE) 01/05/22 16:33 Tissue Pathology To follow 01/08/22 10:59 Blood Type B NEGATIVE 01/05/22 18:25 Antibody Screen Positive 01/05/22 18:25 Antibody Identification Anti-D Anti-I 01/05/22 18:25 Antibody Identification Anti-D Anti-I 01/05/22 18:25 Crossmatch See Detail 01/05/22 18:25 - Assessment and Plan 1: PO PEG tube placement .. debridement sacral ulcer . to start tube feeding today with 30 cc . apply wound vac .. - Problem Patient Problems: Patient Problems Anemia (Acute) D64.9 Acute UTI (urinary tract infection) (Acute) N39.0 Decubitus ulcer of sacral region, stage 4 (Acute) L89.154
[2022-01-10] MEDS ORDERED: MORPHINE SULFATE INJ 2 MG INJ IVP PRN (16:27)
[2022-01-10] MEDS ORDERED: MORPHINE SULFATE INJ 2 MG INJ ONE (16:29)
[2022-01-10] MEDS: NORCO 5/325 MG TAB PO PRN ×2 (17:04→21:40)
[2022-01-11] MEDS: ASCORBIC ACID INJ MULTI-DOSE VIAL 1,500 MG in NS 50 ML IV 50 ML IV SCH ×4 (02:47→20:46)
[2022-01-11] MEDS: APRESOLINE TAB 25 MG PO SCH ×3 (05:07→21:03)
[2022-01-11] MEDS: LR 1,000 ML IV 1,000 ML IV SCH ×4 (05:07→20:46)
[2022-01-11] MEDS: NEURONTIN CAP 300 MG PO SCH ×3 (05:07→21:03)
[2022-01-11] MEDS: ZOSYN VIAL 3.375 GRAMS 3.375 G in NS 100 ML IV 100 ML IV SCH ×3 (05:07→21:03)
[2022-01-11 06:46] LABS: BASOPHILS % (AUTO) 0 % (0.2-1.0); EOSINOPHILS # (AUTO) 0.3 x10^3/uL (0.0-0.2); EOSINOPHILS % (AUTO) 2.1 % (0.9-2.9); HEMATOCRIT 23.3 % (36.0-47.0); HEMOGLOBIN 7.8 g/dL (12.0-16.0); LYMPHOCYTES # (AUTO) 2.8 X10^3/uL (1.3-2.9); LYMPHOCYTES % (AUTO) 18.7 % (21.0-51.0); MEAN CORPUSCULAR HEMOGLOBIN 28.3 pg (27.0-34.0); MEAN CORPUSCULAR HGB CONC 33.5 g/dL (33.0-35.0); MEAN CORPUSCULAR VOLUME 84.7 fL (80.0-100.0); MEAN PLATELET VOLUME 7.8 fL (7.4-11.0); MONOCYTES # (AUTO) 0.9 x10^3/uL (0.3-0.8); MONOCYTES % (AUTO) 6.2 % (0.0-13.0); NEUTROPHILS # (AUTO) 10.8 x10^3/uL (2.2-4.8); RED BLOOD COUNT 2.76 X10^6/uL (3.5-5.4); RED CELL DISTRIBUTION WIDTH 18.5 % (11.6-16.5); WHITE BLOOD COUNT 14.8 X10^3/uL (3.6-10.0)
[2022-01-11 06:57] LABS: ALANINE AMINOTRANSFERASE 8 Units/L (12-78); ALBUMIN 1.1 g/dL (3.4-5.0); ALKALINE PHOSPHATASE 75 Units/L (46-116); ASPARTATE AMINO TRANSFERASE 13 Units/L (15-37); BLOOD UREA NITROGEN 17 mg/dL (7-18); CALCIUM 7.3 mg/dL (8.5-10.1); CARBON DIOXIDE 25.7 mmol/L (21-32); CHLORIDE 108 mmol/L (98-107); COR CA(FOR HYPOALB) 9.6 mg/dL (8.5-10.1); CREATININE 1.28 mg/dL (0.55-1.02); SODIUM 140 mmol/L (136-145); eGFR NON BLACK RACES 44 (>60)
[2022-01-11] MEDS ORDERED: TOPROL XL PO ONE (07:28)
[2022-01-11] MEDS: ACTOS PO SCH (08:13)
[2022-01-11] MEDS: BENICAR TAB 40 MG PO SCH (08:13)
[2022-01-11] MEDS: TOPROL XL PO SCH (08:14)
[2022-01-11] MEDS: COLACE CAP 100 MG PO SCH (08:14)
[2022-01-11] MEDS: THIAMINE HCL INJ IVP SCH ×2 (08:14→20:47)
[2022-01-11] MEDS: NORVASC TAB 10 MG PO SCH (08:14)
[2022-01-11] MEDS: ZINC SULFATE PO SCH (08:14)
[2022-01-11] MEDS: VITAMIN D3 125 mcg (5,000 UNITS) PO SCH (08:15)
[2022-01-11] MEDS: ZYVOX 600MG IV 600 MG/300 ML BAG IV SCH ×2 (08:15→20:47)
[2022-01-11] MEDS: K-RIDER 10 MEQ/NS 100 ML 10 MEQ/100 ML BAG IV PRN ×2 (08:58→10:00)
--- NOTE | 2022-01-11 09:07 | DR.PROGNOT ---
Hospital Progress Notes - Progress Note for Day of: Progress Note Date: 01/11/22 - Chief Complaint Chief Complaint: oral intake is much better today .. wound vac was applied yesterday with good seal at pressure of 100 . - Past Medical Family Social History Past Med/Fam/Surg Hx: No changes since H&P Allergies: Allergies No Known Drug Allergies Allergy (Verified 10/15/21 10:45) - Review Of Systems ROS: No change since H&P - Vital Signs Vital Signs: Temperature 98.4 F Pulse Rate [Brachial] 69 Pulse Rate 93 Respiratory Rate 20 Blood Pressure [Left Arm] 131/60 Blood Pressure [Right Arm] 113/58 Blood Pressure 138/71 O2 Sat by Pulse Oximetry 99 - Physical Exam Oriented: Normal Eyes: Normal Ear: Normal Nose: Normal Throat: Normal Respiratory: Normal Cardiovascular: Normal : Normal GI:Auscultation: Normal GI:Palpation: Normal GI: Tenderness: Other (mild tenderness around PEG tube ..NS+) Skin: Other (sacral ulcer 14x12 x6 cm covered with wound vac ) Mood Description: Calm Speech Pattern: Clear, Appropriate - Laboratory and Diagnostics Result Diagrams: 01/11/22 05:59 01/11/22 05:59 Labs: 01/08/22 11:29 Sacral Wound Gram Stain - Final 01/08/22 11:29 Sacral Wound Culture - Final Methicillin Resis Staph Aureus Enterococcus Faecalis 01/05/22 16:30 Sacral Wound Gram Stain - Final 01/05/22 16:30 Sacral Wound Culture - Final Methicillin Resis Staph Aureus Klebsiella Pneumoniae Streptococcus Anginosus 01/05/22 16:34 Urine,Catheterized Urine Culture - Final Enterococcus Faecium 01/05/22 16:17 Blood Blood Culture - Final Laboratory WBC 14.8 X10^3/uL (3.6-10.0) H 01/11/22 05:59 RBC 2.76 X10^6/uL (3.5-5.4) L 01/11/22 05:59 Hgb 7.8 g/dL (12.0-16.0) L 01/11/22 05:59 Hct 23.3 % (36.0-47.0) L 01/11/22 05:59 MCV 84.7 fL (80.0-100.0) 01/11/22 05:59 MCH 28.3 pg (27.0-34.0) 01/11/22 05:59 MCHC 33.5 g/dL (33.0-35.0) 01/11/22 05:59 RDW 18.5 % (11.6-16.5) H 01/11/22 05:59 Plt Count 384 X10^3/uL (150.0-450.0) 01/11/22 05:59 Plt Count Comment Adequate (ADEQUATE) 01/10/22 05:22 MPV 7.8 fL (7.4-11.0) 01/11/22 05:59 Neut % (Auto) 73.0 % (42.0-75.0) 01/11/22 05:59 Lymph % (Auto) 18.7 % (21.0-51.0) L 01/11/22 05:59 [place] % (Auto) 6.2 % (0.0-13.0) 01/11/22 05:59 Eos % (Auto) 2.1 % (0.9-2.9) 01/11/22 05:59 Baso % (Auto) 0 % (0.2-1.0) L 01/11/22 05:59 Neut # (Auto) 10.8 x10^3/uL (2.2-4.8) H 01/11/22 05:59 Lymph # (Auto) 2.8 X10^3/uL (1.3-2.9) 01/11/22 05:59 [place] # (Auto) 0.9 x10^3/uL (0.3-0.8) H 01/11/22 05:59 Eos # (Auto) 0.3 x10^3/uL (0.0-0.2) H 01/11/22 05:59 Baso # (Auto) 0.0 X10^3/uL (0.0-0.1) 01/11/22 05:59 Absolute Nucleated RBC 0.0 /100WBC 01/11/22 05:59 Total Counted 100 01/10/22 05:22 Neutrophils % (Manual) 69 % (39-76) 01/10/22 05:22 Band Neutrophils % 4 % (0-10) 01/10/22 05:22 Lymphocytes % (Manual) 17 % (13-43) 01/10/22 05:22 Monocytes % (Manual) 6 % (4-9) 01/10/22 05:22 Eosinophils % (Manual) 1 % (0-6) 01/10/22 05:22 Metamyelocytes % 3 01/10/22 05:22 Nucleated RBCs 1 01/09/22 05:45 Plt Morphology Comment Normal (NORMAL) 01/10/22 05:22 RBC Morphology Abnormal (NORMAL) A 01/10/22 05:22 Anisocytosis Slight A 01/10/22 05:22 Target Cells Present 01/08/22 05:37 Sodium 140 mmol/L (136-145) 01/11/22 05:59 Corrected Sodium TNP 01/11/22 05:59 Potassium 3.5 mmol/L (3.5-5.1) 01/11/22 05:59 Chloride 108 mmol/L (98-107) H 01/11/22 05:59 Carbon Dioxide 25.7 mmol/L (21-32) 01/11/22 05:59 BUN 17 mg/dL (7-18) 01/11/22 05:59 Creatinine 1.28 mg/dL (0.55-1.02) H 01/11/22 05:59 Est GFR (MDRD) Af Amer 53 (>60) L 01/11/22 05:59 Est GFR (MDRD) Non-Af 44 (>60) L 01/11/22 05:59 Glucose 94 mg/dL (65-99) 01/11/22 05:59 POC Glucose (mg/dL) 85 mg/dL (65-99) 01/11/22 05:43 Lactic Acid 0.7 mmol/L (0.4-2.0) 01/05/22 16:17 Calcium 7.3 mg/dL (8.5-10.1) L 01/11/22 05:59 Corrected Calcium 9.6 mg/dL (8.5-10.1) 01/11/22 05:59 Magnesium 2.1 mg/dL (1.7-2.9) 01/10/22 05:22 Total Bilirubin 0.20 mg/dL (0.2-1.0) 01/11/22 05:59 AST 13 Units/L (15-37) L 01/11/22 05:59 ALT 8 Units/L (12-78) L 01/11/22 05:59 Alkaline Phosphatase 75 Units/L (46-116) 01/11/22 05:59 Total Protein 5.0 g/dL (6.4-8.2) L 01/11/22 05:59 Albumin 1.1 g/dL (3.4-5.0) L 01/11/22 05:59 Globulin 3.9 g/dL (2.5-4.5) 01/11/22 05:59 Albumin/Globulin Ratio 0.3 Ratio (1.1-2.1) L 01/11/22 05:59 Specimen Type Catherized urine 01/05/22 16:34 Urine Color Yellow (YELLOW) 01/05/22 16:34 Urine Appearance Cloudy (CLEAR) 01/05/22 16:34 Urine pH 6.0 (5.0 - 8.0) 01/05/22 16:34 Ur Specific [place] 1.010 (1.000-1.030) 01/05/22 16:34 Urine Protein 3+ (NEGATIVE) 01/05/22 16:34 Urine Glucose (UA) Negative (NEGATIVE) 01/05/22 16:34 Urine Ketones Negative (NEGATIVE) 01/05/22 16:34 Urine Blood 2+ (NEGATIVE) 01/05/22 16:34 Urine Nitrite Negative (NEGATIVE) 01/05/22 16:34 Urine Bilirubin Negative (NEGATIVE) 01/05/22 16:34 Urine Urobilinogen Normal (NORMAL) 01/05/22 16:34 Ur Leukocyte Esterase 3+ (NEGATIVE) 01/05/22 16:34 Urine RBC Tntc /HPF (0-3) A 01/05/22 16:34 Urine WBC Tntc /HPF (0-5) A 01/05/22 16:34 Ur Squamous Epith Cells Rare /HPF (NEGATIVE) 01/05/22 16:34 Urine Bacteria Trace /HPF (NEGATIVE) 01/05/22 16:34 Ur Culture Indicated? Yes/culture set up 01/05/22 16:34 SARS-CoV-2 (PCR) Negative (NEGATIVE) 01/05/22 16:33 Tissue Pathology To follow 01/08/22 10:59 Blood Type B NEGATIVE 01/05/22 18:25 Antibody Screen Positive 01/05/22 18:25 Antibody Identification Anti-D Anti-I 01/05/22 18:25 Antibody Identification Anti-D Anti-I 01/05/22 18:25 Crossmatch See Detail 01/05/22 18:25 - Assessment and Plan 1: PO PEG tube placement .. debridement sacral ulcer . same local care and nutritional support . IV ABT .. - Problem Patient Problems: Patient Problems Anemia (Acute) D64.9 Acute UTI (urinary tract infection) (Acute) N39.0 Decubitus ulcer of sacral region, stage 4 (Acute) L89.154
[2022-01-11] MEDS: NORCO 5/325 MG TAB PO PRN (11:00)
[2022-01-11] MEDS: VITAMIN C PO SCH (16:18)
[2022-01-11] MEDS: PROTONIX TAB 40 MG PO SCH (20:47)
[2022-01-12] MEDS: ASCORBIC ACID INJ MULTI-DOSE VIAL 1,500 MG in NS 50 ML IV 50 ML IV SCH ×4 (03:48→21:42)
[2022-01-12] MEDS: LR 1,000 ML IV 1,000 ML IV SCH ×3 (05:22→21:41)
[2022-01-12] MEDS: APRESOLINE TAB 25 MG PO SCH ×3 (05:23→21:57)
[2022-01-12] MEDS: NEURONTIN CAP 300 MG PO SCH ×3 (05:23→21:57)
[2022-01-12] MEDS: ZOSYN VIAL 3.375 GRAMS 3.375 G in NS 100 ML IV 100 ML IV SCH ×3 (05:23→21:49)
[2022-01-12 06:10] LABS: BASOPHILS % (AUTO) 0.3 % (0.2-1.0); EOSINOPHILS # (AUTO) 0.3 x10^3/uL (0.0-0.2); EOSINOPHILS % (AUTO) 2.2 % (0.9-2.9); HEMOGLOBIN 7.7 g/dL (12.0-16.0); LYMPHOCYTES # (AUTO) 2.5 X10^3/uL (1.3-2.9); LYMPHOCYTES % (AUTO) 18.3 % (21.0-51.0); MEAN CORPUSCULAR HEMOGLOBIN 28.6 pg (27.0-34.0); MEAN CORPUSCULAR HGB CONC 33.6 g/dL (33.0-35.0); MEAN CORPUSCULAR VOLUME 85.1 fL (80.0-100.0); MEAN PLATELET VOLUME 7.7 fL (7.4-11.0); MONOCYTES # (AUTO) 0.7 x10^3/uL (0.3-0.8); MONOCYTES % (AUTO) 5.4 % (0.0-13.0); NEUTROPHILS # (AUTO) 10.3 x10^3/uL (2.2-4.8); NEUTROPHILS % (AUTO) 73.8 % (42.0-75.0); RED CELL DISTRIBUTION WIDTH 18.3 % (11.6-16.5)
[2022-01-12 06:26] LABS: ALANINE AMINOTRANSFERASE < 6 Units/L (12-78); ALBUMIN 1.1 g/dL (3.4-5.0); ALKALINE PHOSPHATASE 81 Units/L (46-116); ASPARTATE AMINO TRANSFERASE 13 Units/L (15-37); BLOOD UREA NITROGEN 15 mg/dL (7-18); CALCIUM 7.5 mg/dL (8.5-10.1); CARBON DIOXIDE 24.1 mmol/L (21-32); CHLORIDE 109 mmol/L (98-107); COR CA(FOR HYPOALB) 9.8 mg/dL (8.5-10.1); CREATININE 1.28 mg/dL (0.55-1.02); SODIUM 141 mmol/L (136-145); eGFR NON BLACK RACES 44 (>60)
[2022-01-12] MEDS ORDERED: TOPROL XL PO ONE (07:30)
[2022-01-12] MEDS: ACTOS PO SCH (08:02)
[2022-01-12] MEDS: ZINC SULFATE PO SCH (08:03)
[2022-01-12] MEDS: BENICAR TAB 40 MG PO SCH (08:03)
[2022-01-12] MEDS: NORVASC TAB 10 MG PO SCH (08:03)
[2022-01-12] MEDS: COLACE CAP 100 MG PO SCH (08:03)
[2022-01-12] MEDS: PROTONIX TAB 40 MG PO SCH ×2 (08:03→21:57)
[2022-01-12] MEDS: TOPROL XL PO SCH (08:03)
[2022-01-12] MEDS: THIAMINE HCL INJ IVP SCH ×2 (08:03→21:42)
[2022-01-12] MEDS: VITAMIN D3 125 mcg (5,000 UNITS) PO SCH (08:04)
[2022-01-12] MEDS: ZYVOX 600MG IV 600 MG/300 ML BAG IV SCH ×2 (08:04→21:56)
[2022-01-12] MEDS: K-RIDER 10 MEQ/NS 100 ML 10 MEQ/100 ML BAG IV PRN ×2 (08:30→15:17)
[2022-01-12] MEDS: NORCO 5/325 MG TAB PO PRN (15:20)
[2022-01-12] MEDS: VITAMIN C PO SCH (16:17)
[2022-01-12] MEDS ORDERED: NS 100 ML IV 100 ML ONE (21:54)
[2022-01-13] MEDS: LR 1,000 ML IV 1,000 ML IV SCH ×5 (00:51→21:19)
[2022-01-13] MEDS: ASCORBIC ACID INJ MULTI-DOSE VIAL 1,500 MG in NS 50 ML IV 50 ML IV SCH ×4 (03:20→21:33)
[2022-01-13 05:22] LABS: BASOPHILS # (AUTO) 0.2 X10^3/uL (0.0-0.1); BASOPHILS % (AUTO) 1.4 % (0.2-1.0); EOSINOPHILS # (AUTO) 0.4 x10^3/uL (0.0-0.2); EOSINOPHILS % (AUTO) 3.2 % (0.9-2.9); HEMATOCRIT 22.9 % (36.0-47.0); HEMOGLOBIN 7.4 g/dL (12.0-16.0); LYMPHOCYTES # (AUTO) 2.4 X10^3/uL (1.3-2.9); LYMPHOCYTES % (AUTO) 18.6 % (21.0-51.0); MEAN CORPUSCULAR HEMOGLOBIN 27.4 pg (27.0-34.0); MEAN CORPUSCULAR HGB CONC 32.4 g/dL (33.0-35.0); MEAN CORPUSCULAR VOLUME 84.4 fL (80.0-100.0); MEAN PLATELET VOLUME 7.8 fL (7.4-11.0); MONOCYTES # (AUTO) 0.9 x10^3/uL (0.3-0.8); MONOCYTES % (AUTO) 6.6 % (0.0-13.0); NEUTROPHILS # (AUTO) 9.1 x10^3/uL (2.2-4.8); NEUTROPHILS % (AUTO) 70.2 % (42.0-75.0); RED BLOOD COUNT 2.71 X10^6/uL (3.5-5.4); RED CELL DISTRIBUTION WIDTH 18.7 % (11.6-16.5)
[2022-01-13 05:40] LABS: ALANINE AMINOTRANSFERASE 9 Units/L (12-78); ALKALINE PHOSPHATASE 74 Units/L (46-116); ASPARTATE AMINO TRANSFERASE 18 Units/L (15-37); BLOOD UREA NITROGEN 12 mg/dL (7-18); CALCIUM 7.5 mg/dL (8.5-10.1); CARBON DIOXIDE 23.6 mmol/L (21-32); CHLORIDE 109 mmol/L (98-107); COR CA(FOR HYPOALB) 9.9 mg/dL (8.5-10.1); CREATININE 1.31 mg/dL (0.55-1.02); SODIUM 141 mmol/L (136-145); TOTAL PROTEIN 5.1 g/dL (6.4-8.2); eGFR NON BLACK RACES 43 (>60)
[2022-01-13] MEDS: NEURONTIN CAP 300 MG PO SCH ×3 (06:05→21:43)
[2022-01-13] MEDS: APRESOLINE TAB 25 MG PO SCH ×3 (06:05→21:43)
[2022-01-13] MEDS: ZOSYN VIAL 3.375 GRAMS 3.375 G in NS 100 ML IV 100 ML IV SCH ×4 (06:05→21:36)
[2022-01-13] MEDS: NORCO 5/325 MG TAB PO PRN ×2 (06:09→21:50)
[2022-01-13] MEDS ORDERED: TOPROL XL PO ONE (07:05)
[2022-01-13] MEDS: BENICAR TAB 40 MG PO SCH (08:53)
[2022-01-13] MEDS: COLACE CAP 100 MG PO SCH (08:54)
[2022-01-13] MEDS: ZINC SULFATE PO SCH (08:54)
[2022-01-13] MEDS: NORVASC TAB 10 MG PO SCH (08:54)
[2022-01-13] MEDS: PROTONIX TAB 40 MG PO SCH ×2 (08:55→21:43)
[2022-01-13] MEDS: ACTOS PO SCH (08:55)
[2022-01-13] MEDS: THIAMINE HCL INJ IVP SCH ×2 (08:55→21:30)
[2022-01-13] MEDS: TOPROL XL PO SCH (08:55)
[2022-01-13] MEDS: ZYVOX 600MG IV 600 MG/300 ML BAG IV SCH ×2 (08:56→21:37)
[2022-01-13] MEDS: VITAMIN D3 125 mcg (5,000 UNITS) PO SCH (08:56)
[2022-01-13] MEDS ORDERED: NS 250 ML IV 250 ML IV ONE (09:51)
[2022-01-13 18:21] LABS: HEMATOCRIT 36.1 % (36.0-47.0)
[2022-01-13 18:30] LABS: HEMOGLOBIN 12.1 g/dL (12.0-16.0)
[2022-01-14] MEDS: ASCORBIC ACID INJ MULTI-DOSE VIAL 1,500 MG in NS 50 ML IV 50 ML IV SCH ×4 (03:20→23:24)
[2022-01-14] MEDS: LR 1,000 ML IV 1,000 ML IV SCH ×3 (05:06→22:20)
[2022-01-14 05:11] LABS: ALANINE AMINOTRANSFERASE < 6 Units/L (12-78); ALBUMIN 1.1 g/dL (3.4-5.0); ALKALINE PHOSPHATASE 78 Units/L (46-116); ASPARTATE AMINO TRANSFERASE 14 Units/L (15-37); BLOOD UREA NITROGEN 11 mg/dL (7-18); CALCIUM 7.4 mg/dL (8.5-10.1); CARBON DIOXIDE 22.3 mmol/L (21-32); CHLORIDE 110 mmol/L (98-107); COR CA(FOR HYPOALB) 9.7 mg/dL (8.5-10.1); CREATININE 1.22 mg/dL (0.55-1.02); SODIUM 142 mmol/L (136-145); TOTAL PROTEIN 5.2 g/dL (6.4-8.2); eGFR NON BLACK RACES 47 (>60)
[2022-01-14 05:32] LABS: BASOPHILS % (AUTO) 0.3 % (0.2-1.0); EOSINOPHILS # (AUTO) 0.2 x10^3/uL (0.0-0.2); EOSINOPHILS % (AUTO) 2.1 % (0.9-2.9); LYMPHOCYTES # (AUTO) 2.1 X10^3/uL (1.3-2.9); LYMPHOCYTES % (AUTO) 19.4 % (21.0-51.0); MEAN CORPUSCULAR HEMOGLOBIN 28.2 pg (27.0-34.0); MEAN CORPUSCULAR HGB CONC 33.7 g/dL (33.0-35.0); MEAN CORPUSCULAR VOLUME 83.7 fL (80.0-100.0); MEAN PLATELET VOLUME 7.6 fL (7.4-11.0); MONOCYTES # (AUTO) 0.8 x10^3/uL (0.3-0.8); MONOCYTES % (AUTO) 7.4 % (0.0-13.0); NEUTROPHILS # (AUTO) 7.8 x10^3/uL (2.2-4.8); NEUTROPHILS % (AUTO) 70.8 % (42.0-75.0); RED BLOOD COUNT 3.58 X10^6/uL (3.5-5.4); WHITE BLOOD COUNT 11.1 X10^3/uL (3.6-10.0)
[2022-01-14 05:36] LABS: HEMOGLOBIN 10.1 g/dL (12.0-16.0)
[2022-01-14] MEDS: ZOSYN VIAL 3.375 GRAMS 3.375 G in NS 100 ML IV 100 ML IV SCH ×3 (05:56→23:25)
[2022-01-14] MEDS: NEURONTIN CAP 300 MG PO SCH ×3 (05:56→22:48)
[2022-01-14] MEDS: APRESOLINE TAB 25 MG PO SCH ×3 (05:56→22:47)
[2022-01-14] MEDS ORDERED: TOPROL XL PO ONE (08:24)
[2022-01-14] MEDS ORDERED: LEVAQUIN TAB 500 MG PO ONE (08:58)
[2022-01-14] MEDS: BENICAR TAB 40 MG PO SCH (09:44)
[2022-01-14] MEDS: ACTOS PO SCH (09:44)
[2022-01-14] MEDS: ZINC SULFATE PO SCH (09:44)
[2022-01-14] MEDS: NORVASC TAB 10 MG PO SCH ×2 (09:45→09:46)
[2022-01-14] MEDS: TOPROL XL PO SCH ×2 (09:45→09:47)
[2022-01-14] MEDS: COLACE CAP 100 MG PO SCH (09:46)
[2022-01-14] MEDS: PROTONIX TAB 40 MG PO SCH ×2 (09:47→22:47)
[2022-01-14] MEDS: VITAMIN D3 125 mcg (5,000 UNITS) PO SCH (09:47)
[2022-01-14] MEDS: THIAMINE HCL INJ IVP SCH ×2 (09:48→23:24)
[2022-01-14] MEDS: ZYVOX 600MG IV 600 MG/300 ML BAG IV SCH ×2 (09:48→23:24)
[2022-01-14] MEDS: ZOFRAN INJ 4 MG VIAL IVP PRN (14:06)
[2022-01-14] MEDS: MAGNESIUM SULFATE 1 GRAM/100 mL PREMIX 1 G/100 ML BAG IV PRN ×3 (16:20→19:47)
--- NOTE | 2022-01-14 19:23 | PCM.PROG ---
Progress Note - Progress Note for Day of Date of Exam: 01/13/22 - Subjective Subjective: IS A 66 YEAR OLD PATIENT OF . SHE IS A RESIDENT OF [facility]. SHE IS CURRENTLY INPATIENT STATUS FOR TX OF ANEMIA, UTI, AND INFECTED SACRAL DECUBITUS. SHE HAS RECEIVED TWO UNITS OF PRBC SINCE ADMISSION. TWO ADDITIONAL UNITS HAVE BEEN ORDERED AND WE ARE WAITING FOR THEM TO ARRIVE. SHE HAS RECENTLY HAD A PEG TUBE PLACEMENT. SACRAL WOUND IS BEING TREATED WITH ANTIBIOTICS AND A WOUND VAC. SHE CONTINUES TO HAVE POOR ORAL INTAKE, BUT IS RECEIVING FEEDINGS VIA PEG TUBE. HER VITALS THIS MORNING ARE: 98.6-73-20-97%-143/62. LABS WERE OBTAINED. WBC 13.0, RBC 2.71, HGB 7.4, HCT 22.9, SODIUM 141, POTASSIUM 3.9, CHLORIDE 109, BUN 12, CREATININE 1.31, GLUCOSE 102, CALCIUM 7.5, AST 18, ALT 9, ALK PHOS 74, TOTAL PROTEIN 5.1, ALBUMIN 1.0. SHE IS CURRENTLY RECEIVING LR AT 100 ML/HR, ZYVOX 600MG IV BID, ZOSYN 3.375G IV TID, ASCORBIC ACID 1500MG IV Q6H, THE POTASSIUM AND MAGNESIUM PROTOCOLS, VITAMIN SUPPLEMENTS, ZOFRAN 4MG IV Q8H PRN, MORPHINE 2MG IV Q6H PRN, AND HER HOME MEDICATIONS WERE RESUMED. WE WILL CONTINUE WITH CURRENT PLAN OF CARE TODAY AND TRANSFUSE 2 ADDITONAL UNITS OF PRBC WHEN THEY ARE AVAILABLE. OTHERWISE, WE PLAN TO FOLLOW-UP WITH AM LABS AND CONTINUE TO MONITOR. TIME SPENT ON CLINICAL ASSESSMENT, REVIEWING LABS AND IMAGING, DECISION MAKING, AND DOCUMENTATION GREATER THAN 45 MINUTES. - Past Medical Family Social History Past Med/Fam/Surg Hx: No changes since H&P Allergies: Allergies No Known Drug Allergies Allergy (Verified 10/15/21 10:45) - Review of Systems ROS: No change since H&P - Vital Signs and I&O's Vital Signs: Temperature 98.1 F Pulse Rate [Brachial] 80 Pulse Rate 93 Respiratory Rate 20 Blood Pressure [Left Arm] 144/66 Blood Pressure [Right Arm] 126/60 Blood Pressure 138/71 O2 Sat by Pulse Oximetry 96 Intake and Output: Intake & Output 01/12/22 01/13/22 01/14/22 01/15/22 11:59 11:59 11:59 11:59 Intake Total 4614 / 4614 3097 / 3097 2875 / 2875 1240 / 1240 Output Total 925 / 925 925 / 925 925 / 925 500 / 500 Balance 3689 / 3689 2172 / 2172 1950 / 1950 740 / 740 - Physical Exam Oriented: Normal Eyes: Normal Ear: Normal Nose: Normal Throat: Normal Respiratory: Normal Cardiovascular: Normal : Normal Auscultation: Bowel Sounds: Normal Palpation: Normal Tenderness: Other (mild tenderness around PEG tube ..NS+) Skin: Other (sacral ulcer 14x12 x6 cm covered with wound vac ) Mood Description: Calm Speech Pattern: Clear, Appropriate - Laboratory and Diagnostics Result Diagrams: 01/14/22 03:56 01/14/22 03:56 Labs: 01/08/22 11:29 Sacral Wound Gram Stain - Final 01/08/22 11:29 Sacral Wound Culture - Final Methicillin Resis Staph Aureus Enterococcus Faecalis 01/05/22 16:30 Sacral Wound Gram Stain - Final 01/05/22 16:30 Sacral Wound Culture - Final Methicillin Resis Staph Aureus Klebsiella Pneumoniae Streptococcus Anginosus 01/05/22 16:34 Urine,Catheterized Urine Culture - Final Enterococcus Faecium 01/05/22 16:17 Blood Blood Culture - Final Laboratory WBC 11.1 X10^3/uL (3.6-10.0) H 01/14/22 03:56 RBC 3.58 X10^6/uL (3.5-5.4) 01/14/22 03:56 Hgb 10.1 g/dL (12.0-16.0) L D 01/14/22 03:56 Hct 30.0 % (36.0-47.0) L 01/14/22 03:56 MCV 83.7 fL (80.0-100.0) 01/14/22 03:56 MCH 28.2 pg (27.0-34.0) 01/14/22 03:56 MCHC 33.7 g/dL (33.0-35.0) 01/14/22 03:56 RDW 18.0 % (11.6-16.5) H 01/14/22 03:56 Plt Count 350 X10^3/uL (150.0-450.0) 01/14/22 03:56 Plt Count Comment Adequate (ADEQUATE) 01/10/22 05:22 MPV 7.6 fL (7.4-11.0) 01/14/22 03:56 Neut % (Auto) 70.8 % (42.0-75.0) 01/14/22 03:56 Lymph % (Auto) 19.4 % (21.0-51.0) L 01/14/22 03:56 [place] % (Auto) 7.4 % (0.0-13.0) 01/14/22 03:56 Eos % (Auto) 2.1 % (0.9-2.9) 01/14/22 03:56 Baso % (Auto) 0.3 % (0.2-1.0) 01/14/22 03:56 Neut # (Auto) 7.8 x10^3/uL (2.2-4.8) H 01/14/22 03:56 Lymph # (Auto) 2.1 X10^3/uL (1.3-2.9) 01/14/22 03:56 [place] # (Auto) 0.8 x10^3/uL (0.3-0.8) 01/14/22 03:56 Eos # (Auto) 0.2 x10^3/uL (0.0-0.2) 01/14/22 03:56 Baso # (Auto) 0.0 X10^3/uL (0.0-0.1) 01/14/22 03:56 Absolute Nucleated RBC 0.2 /100WBC 01/14/22 03:56 Total Counted 100 01/10/22 05:22 Neutrophils % (Manual) 69 % (39-76) 01/10/22 05:22 Band Neutrophils % 4 % (0-10) 01/10/22 05:22 Lymphocytes % (Manual) 17 % (13-43) 01/10/22 05:22 Monocytes % (Manual) 6 % (4-9) 01/10/22 05:22 Eosinophils % (Manual) 1 % (0-6) 01/10/22 05:22 Metamyelocytes % 3 01/10/22 05:22 Nucleated RBCs 1 01/09/22 05:45 Plt Morphology Comment Normal (NORMAL) 01/10/22 05:22 RBC Morphology Abnormal (NORMAL) A 01/10/22 05:22 Anisocytosis Slight A 01/10/22 05:22 Target Cells Present 01/08/22 05:37 Sodium 142 mmol/L (136-145) 01/14/22 03:56 Corrected Sodium TNP 01/14/22 03:56 Potassium 3.4 mmol/L (3.5-5.1) L 01/14/22 03:56 Chloride 110 mmol/L (98-107) H 01/14/22 03:56 Carbon Dioxide 22.3 mmol/L (21-32) 01/14/22 03:56 BUN 11 mg/dL (7-18) 01/14/22 03:56 Creatinine 1.22 mg/dL (0.55-1.02) H 01/14/22 03:56 Est GFR (MDRD) Af Amer 57 (>60) L 01/14/22 03:56 Est GFR (MDRD) Non-Af 47 (>60) L 01/14/22 03:56 Glucose 94 mg/dL (65-99) 01/14/22 03:56 POC Glucose (mg/dL) 80 mg/dL (65-99) 01/14/22 16:21 Lactic Acid 0.7 mmol/L (0.4-2.0) 01/05/22 16:17 Calcium 7.4 mg/dL (8.5-10.1) L 01/14/22 03:56 Corrected Calcium 9.7 mg/dL (8.5-10.1) 01/14/22 03:56 Magnesium 1.5 mg/dL (1.7-2.9) L 01/14/22 13:54 Total Bilirubin 0.30 mg/dL (0.2-1.0) 01/14/22 03:56 AST 14 Units/L (15-37) L 01/14/22 03:56 ALT < 6 Units/L (12-78) L 01/14/22 03:56 Alkaline Phosphatase 78 Units/L (46-116) 01/14/22 03:56 Total Protein 5.2 g/dL (6.4-8.2) L 01/14/22 03:56 Albumin 1.1 g/dL (3.4-5.0) L 01/14/22 03:56 Globulin 4.1 g/dL (2.5-4.5) 01/14/22 03:56 Albumin/Globulin Ratio 0.3 Ratio (1.1-2.1) L 01/14/22 03:56 Specimen Type Catherized urine 01/05/22 16:34 Urine Color Yellow (YELLOW) 01/05/22 16:34 Urine Appearance Cloudy (CLEAR) 01/05/22 16:34 Urine pH 6.0 (5.0 - 8.0) 01/05/22 16:34 Ur Specific [place] 1.010 (1.000-1.030) 01/05/22 16:34 Urine Protein 3+ (NEGATIVE) 01/05/22 16:34 Urine Glucose (UA) Negative (NEGATIVE) 01/05/22 16:34 Urine Ketones Negative (NEGATIVE) 01/05/22 16:34 Urine Blood 2+ (NEGATIVE) 01/05/22 16:34 Urine Nitrite Negative (NEGATIVE) 01/05/22 16:34 Urine Bilirubin Negative (NEGATIVE) 01/05/22 16:34 Urine Urobilinogen Normal (NORMAL) 01/05/22 16:34 Ur Leukocyte Esterase 3+ (NEGATIVE) 01/05/22 16:34 Urine RBC Tntc /HPF (0-3) A 01/05/22 16:34 Urine WBC Tntc /HPF (0-5) A 01/05/22 16:34 Ur Squamous Epith Cells Rare /HPF (NEGATIVE) 01/05/22 16:34 Urine Bacteria Trace /HPF (NEGATIVE) 01/05/22 16:34 Ur Culture Indicated? Yes/culture set up 01/05/22 16:34 SARS-CoV-2 (PCR) Negative (NEGATIVE) 01/05/22 16:33 Tissue Pathology To follow 01/08/22 10:59 Blood Type B NEGATIVE 01/11/22 10:22 Antibody Screen Negative 01/11/22 10:22 Antibody Identification Anti-D Anti-I 01/05/22 18:25 Antibody Identification Anti-D Anti-I 01/05/22 18:25 Crossmatch See Detail 01/11/22 10:22 - Plan (1) Anemia Status: Acute Qualifiers: Anemia type: unspecified type Qualified Code(s): D64.9 - Anemia, unspecified (2) Acute UTI (urinary tract infection) Status: Acute (3) Decubitus ulcer of sacral region, stage 4 Status: Acute (4) Status post insertion of percutaneous endoscopic gastrostomy (PEG) tube Status: Acute
--- NOTE | 2022-01-14 19:30 | PCM.PROG ---
Progress Note - Progress Note for Day of Date of Exam: 01/14/22 - Subjective Subjective: IS A 66 YEAR OLD PATIENT OF . SHE IS A RESIDENT OF [facility]. SHE IS CURRENTLY INPATIENT STATUS FOR TX OF ANEMIA, UTI, AND INFECTED SACRAL DECUBITUS. SHE HAS RECEIVED TWO ADDITIONAL UNITS OF PRBC YESTERDAY. SHE HAS RECENTLY HAD A PEG TUBE PLACEMENT. SACRAL WOUND IS BEING TREATED WITH ANTIBIOTICS AND A WOUND VAC. SHE CONTINUES TO HAVE POOR ORAL INTAKE, BUT IS RECEIVING FEEDINGS VIA PEG TUBE. HER VITALS THIS MORNING ARE: 97.8-68-20-100%-105/51. LABS WERE OBTAINED. WBC 11.1, RBC 3.58, HGB 10.1, HCT 30.0, SODIUM 142, POTASSIUM 3.4, CHLORIDE 110, BUN 11, CREATININE 1.22, GLUCOSE 94, CALCIUM 7.4, MAGNESIUM 1.5, AST 14, ALT <6, TOTAL PROTEIN 5.2, ALBUMIN 1.1. SHE IS CURRENTLY RECEIVING LR AT 100 ML/HR, ZYVOX 600MG IV BID, ZOSYN 3.375G IV TID, ASCORBIC ACID 1500MG IV Q6H, THE POTASSIUM AND MAGNESIUM PROTOCOLS, VITAMIN SUPPLEMENTS, ZOFRAN 4MG IV Q8H PRN, MORPHINE 2MG IV Q6H PRN, AND HER HOME MEDICATIONS WERE RESUMED. WE WILL CONTINUE WITH CURRENT PLAN OF CARE TODAY. OTHERWISE, WE PLAN TO FOLLOW-UP WITH AM LABS AND CONTINUE TO MONITOR. TIME SPENT ON CLINICAL ASSESSMENT, REVIEWING LABS AND IMAGING, DECISION MAKING, AND DOCUMENTATION GREATER THAN 45 MINUTES. - Past Medical Family Social History Past Med/Fam/Surg Hx: No changes since H&P Allergies: Allergies No Known Drug Allergies Allergy (Verified 10/15/21 10:45) - Review of Systems ROS: No change since H&P - Vital Signs and I&O's Vital Signs: Temperature 98.1 F Pulse Rate [Brachial] 80 Pulse Rate 93 Respiratory Rate 20 Blood Pressure [Left Arm] 144/66 Blood Pressure [Right Arm] 126/60 Blood Pressure 138/71 O2 Sat by Pulse Oximetry 96 Intake and Output: Intake & Output 01/12/22 01/13/22 01/14/22 01/15/22 11:59 11:59 11:59 11:59 Intake Total 4614 / 4614 3097 / 3097 2875 / 2875 1240 / 1240 Output Total 925 / 925 925 / 925 925 / 925 500 / 500 Balance 3689 / 3689 2172 / 2172 1950 / 1950 740 / 740 - Physical Exam Oriented: Normal Eyes: Normal Ear: Normal Nose: Normal Throat: Normal Respiratory: Normal Cardiovascular: Normal : Normal Auscultation: Bowel Sounds: Normal Tenderness: Other (mild tenderness around PEG tube ..NS+) Skin: Other (sacral ulcer 14x12 x6 cm covered with wound vac ) Mood Description: Calm Speech Pattern: Clear, Appropriate - Laboratory and Diagnostics Result Diagrams: 01/14/22 03:56 01/14/22 03:56 Labs: 01/08/22 11:29 Sacral Wound Gram Stain - Final 01/08/22 11:29 Sacral Wound Culture - Final Methicillin Resis Staph Aureus Enterococcus Faecalis 01/05/22 16:30 Sacral Wound Gram Stain - Final 01/05/22 16:30 Sacral Wound Culture - Final Methicillin Resis Staph Aureus Klebsiella Pneumoniae Streptococcus Anginosus 01/05/22 16:34 Urine,Catheterized Urine Culture - Final Enterococcus Faecium 01/05/22 16:17 Blood Blood Culture - Final Laboratory WBC 11.1 X10^3/uL (3.6-10.0) H 01/14/22 03:56 RBC 3.58 X10^6/uL (3.5-5.4) 01/14/22 03:56 Hgb 10.1 g/dL (12.0-16.0) L D 01/14/22 03:56 Hct 30.0 % (36.0-47.0) L 01/14/22 03:56 MCV 83.7 fL (80.0-100.0) 01/14/22 03:56 MCH 28.2 pg (27.0-34.0) 01/14/22 03:56 MCHC 33.7 g/dL (33.0-35.0) 01/14/22 03:56 RDW 18.0 % (11.6-16.5) H 01/14/22 03:56 Plt Count 350 X10^3/uL (150.0-450.0) 01/14/22 03:56 Plt Count Comment Adequate (ADEQUATE) 01/10/22 05:22 MPV 7.6 fL (7.4-11.0) 01/14/22 03:56 Neut % (Auto) 70.8 % (42.0-75.0) 01/14/22 03:56 Lymph % (Auto) 19.4 % (21.0-51.0) L 01/14/22 03:56 [place] % (Auto) 7.4 % (0.0-13.0) 01/14/22 03:56 Eos % (Auto) 2.1 % (0.9-2.9) 01/14/22 03:56 Baso % (Auto) 0.3 % (0.2-1.0) 01/14/22 03:56 Neut # (Auto) 7.8 x10^3/uL (2.2-4.8) H 01/14/22 03:56 Lymph # (Auto) 2.1 X10^3/uL (1.3-2.9) 01/14/22 03:56 [place] # (Auto) 0.8 x10^3/uL (0.3-0.8) 01/14/22 03:56 Eos # (Auto) 0.2 x10^3/uL (0.0-0.2) 01/14/22 03:56 Baso # (Auto) 0.0 X10^3/uL (0.0-0.1) 01/14/22 03:56 Absolute Nucleated RBC 0.2 /100WBC 01/14/22 03:56 Total Counted 100 01/10/22 05:22 Neutrophils % (Manual) 69 % (39-76) 01/10/22 05:22 Band Neutrophils % 4 % (0-10) 01/10/22 05:22 Lymphocytes % (Manual) 17 % (13-43) 01/10/22 05:22 Monocytes % (Manual) 6 % (4-9) 01/10/22 05:22 Eosinophils % (Manual) 1 % (0-6) 01/10/22 05:22 Metamyelocytes % 3 01/10/22 05:22 Nucleated RBCs 1 01/09/22 05:45 Plt Morphology Comment Normal (NORMAL) 01/10/22 05:22 RBC Morphology Abnormal (NORMAL) A 01/10/22 05:22 Anisocytosis Slight A 01/10/22 05:22 Target Cells Present 01/08/22 05:37 Sodium 142 mmol/L (136-145) 01/14/22 03:56 Corrected Sodium TNP 01/14/22 03:56 Potassium 3.4 mmol/L (3.5-5.1) L 01/14/22 03:56 Chloride 110 mmol/L (98-107) H 01/14/22 03:56 Carbon Dioxide 22.3 mmol/L (21-32) 01/14/22 03:56 BUN 11 mg/dL (7-18) 01/14/22 03:56 Creatinine 1.22 mg/dL (0.55-1.02) H 01/14/22 03:56 Est GFR (MDRD) Af Amer 57 (>60) L 01/14/22 03:56 Est GFR (MDRD) Non-Af 47 (>60) L 01/14/22 03:56 Glucose 94 mg/dL (65-99) 01/14/22 03:56 POC Glucose (mg/dL) 80 mg/dL (65-99) 01/14/22 16:21 Lactic Acid 0.7 mmol/L (0.4-2.0) 01/05/22 16:17 Calcium 7.4 mg/dL (8.5-10.1) L 01/14/22 03:56 Corrected Calcium 9.7 mg/dL (8.5-10.1) 01/14/22 03:56 Magnesium 1.5 mg/dL (1.7-2.9) L 01/14/22 13:54 Total Bilirubin 0.30 mg/dL (0.2-1.0) 01/14/22 03:56 AST 14 Units/L (15-37) L 01/14/22 03:56 ALT < 6 Units/L (12-78) L 01/14/22 03:56 Alkaline Phosphatase 78 Units/L (46-116) 01/14/22 03:56 Total Protein 5.2 g/dL (6.4-8.2) L 01/14/22 03:56 Albumin 1.1 g/dL (3.4-5.0) L 01/14/22 03:56 Globulin 4.1 g/dL (2.5-4.5) 01/14/22 03:56 Albumin/Globulin Ratio 0.3 Ratio (1.1-2.1) L 01/14/22 03:56 Specimen Type Catherized urine 01/05/22 16:34 Urine Color Yellow (YELLOW) 01/05/22 16:34 Urine Appearance Cloudy (CLEAR) 01/05/22 16:34 Urine pH 6.0 (5.0 - 8.0) 01/05/22 16:34 Ur Specific [place] 1.010 (1.000-1.030) 01/05/22 16:34 Urine Protein 3+ (NEGATIVE) 01/05/22 16:34 Urine Glucose (UA) Negative (NEGATIVE) 01/05/22 16:34 Urine Ketones Negative (NEGATIVE) 01/05/22 16:34 Urine Blood 2+ (NEGATIVE) 01/05/22 16:34 Urine Nitrite Negative (NEGATIVE) 01/05/22 16:34 Urine Bilirubin Negative (NEGATIVE) 01/05/22 16:34 Urine Urobilinogen Normal (NORMAL) 01/05/22 16:34 Ur Leukocyte Esterase 3+ (NEGATIVE) 01/05/22 16:34 Urine RBC Tntc /HPF (0-3) A 01/05/22 16:34 Urine WBC Tntc /HPF (0-5) A 01/05/22 16:34 Ur Squamous Epith Cells Rare /HPF (NEGATIVE) 01/05/22 16:34 Urine Bacteria Trace /HPF (NEGATIVE) 01/05/22 16:34 Ur Culture Indicated? Yes/culture set up 01/05/22 16:34 SARS-CoV-2 (PCR) Negative (NEGATIVE) 01/05/22 16:33 Tissue Pathology To follow 01/08/22 10:59 Blood Type B NEGATIVE 01/11/22 10:22 Antibody Screen Negative 01/11/22 10:22 Antibody Identification Anti-D Anti-I 01/05/22 18:25 Antibody Identification Anti-D Anti-I 01/05/22 18:25 Crossmatch See Detail 01/11/22 10:22 - Plan (1) Anemia Status: Acute Qualifiers: Anemia type: unspecified type Qualified Code(s): D64.9 - Anemia, unspecified (2) Acute UTI (urinary tract infection) Status: Acute (3) Decubitus ulcer of sacral region, stage 4 Status: Acute (4) Status post insertion of percutaneous endoscopic gastrostomy (PEG) tube Status: Acute
[2022-01-14] MEDS ORDERED: ZyrTEC TAB 10 MG PO ONE (21:32)
[2022-01-14] MEDS ORDERED: NS 100 ML IV 100 ML ONE (21:44)
--- NOTE | 2022-01-14 23:13 | RAD ---
HISTORYfluid overload.brcentral line placement Relevant Clinical InformationSTUDYCHEST, 1 [id number] trachea is midline. Right IJ central line tip in the SVC. The cardiac silhouette is unremarkable. A right basilar subsegmental atelectasis and/or infiltrate. There is some patchy opacity within the left mid and lower lung field. No pneumothorax. The bony thorax is unremarkable.IMPRESSIONPatchy opacity within the left mid and lower lung field with right basilar subsegmental atelectasis and/or infiltrate..Electronically signed by: Sotero Amaya (January 14, 2022 23:13:01)
[2022-01-15] MEDS: ASCORBIC ACID INJ MULTI-DOSE VIAL 1,500 MG in NS 50 ML IV 50 ML IV SCH ×3 (02:59→09:34)
[2022-01-15] MEDS ORDERED: NS 50 ML IV 50 ML IV ONE (03:54)
[2022-01-15 04:49] LABS: BASOPHILS % (AUTO) 0.4 % (0.2-1.0); EOSINOPHILS # (AUTO) 0.2 x10^3/uL (0.0-0.2); EOSINOPHILS % (AUTO) 2.3 % (0.9-2.9); HEMATOCRIT 28.5 % (36.0-47.0); HEMOGLOBIN 9.7 g/dL (12.0-16.0); LYMPHOCYTES # (AUTO) 1.7 X10^3/uL (1.3-2.9); LYMPHOCYTES % (AUTO) 16.5 % (21.0-51.0); MEAN CORPUSCULAR HEMOGLOBIN 28.6 pg (27.0-34.0); MEAN CORPUSCULAR VOLUME 84.1 fL (80.0-100.0); MEAN PLATELET VOLUME 7.2 fL (7.4-11.0); MONOCYTES # (AUTO) 0.9 x10^3/uL (0.3-0.8); MONOCYTES % (AUTO) 8.5 % (0.0-13.0); NEUTROPHILS # (AUTO) 7.4 x10^3/uL (2.2-4.8); NEUTROPHILS % (AUTO) 72.3 % (42.0-75.0); RED BLOOD COUNT 3.39 X10^6/uL (3.5-5.4); RED CELL DISTRIBUTION WIDTH 17.8 % (11.6-16.5); WHITE BLOOD COUNT 10.2 X10^3/uL (3.6-10.0)
[2022-01-15 04:56] LABS: ALANINE AMINOTRANSFERASE < 6 Units/L (12-78); ALKALINE PHOSPHATASE 72 Units/L (46-116); ASPARTATE AMINO TRANSFERASE 12 Units/L (15-37); BLOOD UREA NITROGEN 8 mg/dL (7-18); CALCIUM 7.3 mg/dL (8.5-10.1); CARBON DIOXIDE 24.2 mmol/L (21-32); CHLORIDE 109 mmol/L (98-107); COR CA(FOR HYPOALB) 9.7 mg/dL (8.5-10.1); CREATININE 1.18 mg/dL (0.55-1.02); MAGNESIUM 1.8 mg/dL (1.7-2.9); SODIUM 141 mmol/L (136-145); TOTAL PROTEIN 4.8 g/dL (6.4-8.2); eGFR NON BLACK RACES 49 (>60)
[2022-01-15] MEDS: NEURONTIN CAP 300 MG PO SCH (06:25)
[2022-01-15] MEDS: APRESOLINE TAB 25 MG PO SCH (06:25)
[2022-01-15] MEDS: ZOSYN VIAL 3.375 GRAMS 3.375 G in NS 100 ML IV 100 ML IV SCH (06:26)
[2022-01-15] MEDS ORDERED: PROCRIT or EPOGEN VIAL 10,000 UNITS SC NR (08:58)
[2022-01-15] MEDS ORDERED: TOPROL XL PO ONE (09:27)
[2022-01-15] MEDS: ACTOS PO SCH (09:34)
[2022-01-15] MEDS: COLACE CAP 100 MG PO SCH (09:35)
[2022-01-15] MEDS: BENICAR TAB 40 MG PO SCH (09:35)
[2022-01-15] MEDS: NORVASC TAB 10 MG PO SCH (09:36)
[2022-01-15] MEDS: VITAMIN D3 125 mcg (5,000 UNITS) PO SCH (09:37)
[2022-01-15] MEDS: PROTONIX TAB 40 MG PO SCH (09:37)
[2022-01-15] MEDS: ZINC SULFATE PO SCH (09:37)
[2022-01-15] MEDS: TOPROL XL PO SCH (09:37)
[2022-01-15] MEDS: THIAMINE HCL INJ IVP SCH (09:37)
[2022-01-15] MEDS: ZYVOX 600MG IV 600 MG/300 ML BAG IV SCH (09:38)
[2022-01-15 14:01] VITALS: BP 147/65
== END 2022-01-15 12:30 | DRG 689 ==
LOC: ER 15:33 → MED/SURG 18:45
PROVIDERS: ADMIT Family Medicine; ATTEND Obstetrics & Gynecology Obstetrics
DX: I10 Essential (primary) hypertension; B95.62 Methicillin resistant Staphylococcus aureus infection as the cause of diseases classified elsewhere; E86.0 Dehydration; R13.11 Dysphagia, oral phase; R26.89 Other abnormalities of gait and mobility; Z20.822 Contact with and (suspected) exposure to COVID-19; N17.8 Other acute kidney failure; Z89.611 Acquired absence of right leg above knee; K29.00 Acute gastritis without bleeding; B95.2 Enterococcus as the cause of diseases classified elsewhere; D63.1 Anemia in chronic kidney disease; Z86.73 Personal history of transient ischemic attack (TIA), and cerebral infarction without residual deficits; L89.154 Pressure ulcer of sacral region, stage 4; E78.2 Mixed hyperlipidemia; B96.1 Klebsiella pneumoniae [K. pneumoniae] as the cause of diseases classified elsewhere; E11.65 Type 2 diabetes mellitus with hyperglycemia; N39.0 Urinary tract infection, site not specified; K21.00 Gastro-esophageal reflux disease with esophagitis, without bleeding; B95.1 Streptococcus, group B, as the cause of diseases classified elsewhere

== ENCOUNTER 2022-01-29 18:15 | Inpatient (IN) ==
[2022-01-29] MEDS ORDERED: NS 1,000 ML IV 2,000 ML IV ONE (19:07)
[2022-01-29 20:42] LABS: BILIRUBIN,URINE NEGATIVE (NEGATIVE); BLOOD/HEMOGLOBIN,URINE 2+ (NEGATIVE); GLUCOSE, URINE NEGATIVE (NEGATIVE); KETONES,URINE NEGATIVE (NEGATIVE); LEUKOCYTE ESTERASE ,URINE 3+ (NEGATIVE); NITRITES,URINE NEGATIVE (NEGATIVE); PROTEIN,URINE 3+ (NEGATIVE); UROBILINOGEN,URINE NORMAL (NORMAL)
[2022-01-29 21:07] LABS: APPEARANCE,URINE TURBID (CLEAR); COLOR,URINE YELLOW (YELLOW)
[2022-01-29 21:08] LABS: BACTERIA,URINE TRACE /HPF (NEGATIVE); RBC,URINE NONE SEEN /HPF (0-3); SQUAMOUS EPITHELIAL CELL,UR FEW /HPF (NEGATIVE); YEAST,URINE FEW /HPF (NEGATIVE)
[2022-01-29] MEDS: NORCO 5/325 MG TAB PO PRN (22:24)
[2022-01-29 22:46] LABS: BASOPHILS % (AUTO) 0.1 % (0.2-1.0); EOSINOPHILS # (AUTO) 0.1 x10^3/uL (0.0-0.2); EOSINOPHILS % (AUTO) 0.6 % (0.9-2.9); HEMOGLOBIN 8.6 g/dL (12.0-16.0); LYMPHOCYTES # (AUTO) 3.5 X10^3/uL (1.3-2.9); LYMPHOCYTES % (AUTO) 22.1 % (21.0-51.0); MEAN CORPUSCULAR HEMOGLOBIN 29.9 pg (27.0-34.0); MEAN CORPUSCULAR HGB CONC 33.2 g/dL (33.0-35.0); MEAN CORPUSCULAR VOLUME 90.2 fL (80.0-100.0); MEAN PLATELET VOLUME 8.6 fL (7.4-11.0); MONOCYTES # (AUTO) 1.2 x10^3/uL (0.3-0.8); MONOCYTES % (AUTO) 7.6 % (0.0-13.0); NEUTROPHILS % (AUTO) 69.6 % (42.0-75.0); RED BLOOD COUNT 2.88 X10^6/uL (3.5-5.4); RED CELL DISTRIBUTION WIDTH 20.5 % (11.6-16.5); WHITE BLOOD COUNT 15.8 X10^3/uL (3.6-10.0)
[2022-01-29 22:56] LABS: ANISOCYTOSIS 1+; PLATELET MORPHOLOGY COMMENT NORMAL (NORMAL)
[2022-01-29 22:58] LABS: ALBUMIN 0.9 g/dL (3.4-5.0); CALCIUM 8.1 mg/dL (8.5-10.1); CARBON DIOXIDE 21.6 mmol/L (21-32); COR CA(FOR HYPOALB) 10.6 mg/dL (8.5-10.1); CREATININE 2.87 mg/dL (0.55-1.02); TOTAL PROTEIN 5.6 g/dL (6.4-8.2)
[2022-01-29] MEDS ORDERED: PHARMACY CONSULT LTC MEDICATIONS XX SCH (23:45)
[2022-01-29 23:52] VITALS: BMI 31.9
[2022-01-30 04:10] LABS: LACTIC ACID 2.7 mmol/L (0.4-2.0)
[2022-01-30 04:22] LABS: BASOPHILS % (AUTO) 0.1 % (0.2-1.0); EOSINOPHILS # (AUTO) 0.2 x10^3/uL (0.0-0.2); EOSINOPHILS % (AUTO) 1.1 % (0.9-2.9); HEMATOCRIT 24.3 % (36.0-47.0); HEMOGLOBIN 8.2 g/dL (12.0-16.0); LYMPHOCYTES # (AUTO) 3.9 X10^3/uL (1.3-2.9); LYMPHOCYTES % (AUTO) 26.2 % (21.0-51.0); MEAN CORPUSCULAR HEMOGLOBIN 31.6 pg (27.0-34.0); MEAN CORPUSCULAR HGB CONC 33.6 g/dL (33.0-35.0); MEAN PLATELET VOLUME 8.9 fL (7.4-11.0); MONOCYTES # (AUTO) 1.2 x10^3/uL (0.3-0.8); MONOCYTES % (AUTO) 7.7 % (0.0-13.0); NEUTROPHILS # (AUTO) 9.8 x10^3/uL (2.2-4.8); NEUTROPHILS % (AUTO) 64.9 % (42.0-75.0); RED BLOOD COUNT 2.58 X10^6/uL (3.5-5.4); RED CELL DISTRIBUTION WIDTH 20.3 % (11.6-16.5); WHITE BLOOD COUNT 15.1 X10^3/uL (3.6-10.0)
[2022-01-30 04:34] LABS: ALANINE AMINOTRANSFERASE < 6 Units/L (12-78); ALBUMIN 0.9 g/dL (3.4-5.0); ALKALINE PHOSPHATASE 122 Units/L (46-116); ASPARTATE AMINO TRANSFERASE 14 Units/L (15-37); BLOOD UREA NITROGEN 58 mg/dL (7-18); CALCIUM 7.9 mg/dL (8.5-10.1); CARBON DIOXIDE 19.8 mmol/L (21-32); CHLORIDE 112 mmol/L (98-107); COR CA(FOR HYPOALB) 10.4 mg/dL (8.5-10.1); COR NA(FOR HYPERGLY) 141 mmol/L (136-145); SODIUM 140 mmol/L (136-145); TOTAL PROTEIN 5.2 g/dL (6.4-8.2); eGFR NON BLACK RACES 20 (>60)
[2022-01-30] MEDS: NORCO 5/325 MG TAB PO PRN (05:00)
[2022-01-30 05:08] LABS: ANISOCYTOSIS 1+; HYPOCHROMASIA SLIGHT; PLATELET MORPHOLOGY COMMENT NORMAL (NORMAL)
[2022-01-30 05:09] LABS: BURR CELLS PRESENT; POIKILOCYTOSIS 2+; SCHISTOCYTES PRESENT; TARGET CELLS PRESENT
[2022-01-30] MEDS: NS 1,000 ML IV 1,000 ML IV SCH ×3 (05:26→14:19)
--- NOTE | 2022-01-30 15:31 | DR.PROGNOT ---
Hospital Progress Notes - Progress Note for Day of: Progress Note Date: 01/30/22 - Chief Complaint Chief Complaint: no changes ,. having moderate amount of drainage from the sacral ulcer . WBC 15.1.. Hgb 8.2 .. Albumin 0.9 . U/A showing UTI . - Past Medical Family Social History Past Med/Fam/Surg Hx: No changes since H&P Allergies: Allergies No Known Drug Allergies Allergy (Verified 10/15/21 10:45) - Review Of Systems ROS: No change since H&P - Vital Signs Vital Signs: Temperature 97.8 F Pulse Rate [Right Radial] 69 Pulse Rate 71 Respiratory Rate 18 Blood Pressure [Left Arm] 151/67 Blood Pressure [Right Arm] 117/63 Blood Pressure 119/98 O2 Sat by Pulse Oximetry 100 - Physical Exam Oriented: Not Oriented Eyes: Normal Ear: Normal Nose: Normal Cardiovascular: Normal GI:Auscultation: Normal GI: Tenderness: Other (PEG tube in place .. ) Skin: Other (large sacral ulcer stage 4 with skin necrosis and undermined skin ) Speech Pattern: Clear, Appropriate - Laboratory and Diagnostics Result Diagrams: 01/30/22 03:06 01/30/22 03:06 Labs: 01/29/22 20:15 Sacral Wound Gram Stain - Final 01/29/22 20:15 Sacral Wound Culture - Preliminary Laboratory WBC 15.1 X10^3/uL (3.6-10.0) H 01/30/22 03:06 RBC 2.58 X10^6/uL (3.5-5.4) L 01/30/22 03:06 Hgb 8.2 g/dL (12.0-16.0) L 01/30/22 03:06 Hct 24.3 % (36.0-47.0) L 01/30/22 03:06 MCV 94.0 fL (80.0-100.0) 01/30/22 03:06 MCH 31.6 pg (27.0-34.0) 01/30/22 03:06 MCHC 33.6 g/dL (33.0-35.0) 01/30/22 03:06 RDW 20.3 % (11.6-16.5) H 01/30/22 03:06 Plt Count 365 X10^3/uL (150.0-450.0) 01/30/22 03:06 Plt Count Comment Adequate (ADEQUATE) 01/30/22 03:06 MPV 8.9 fL (7.4-11.0) 01/30/22 03:06 Neut % (Auto) 64.9 % (42.0-75.0) 01/30/22 03:06 Lymph % (Auto) 26.2 % (21.0-51.0) 01/30/22 03:06 [place] % (Auto) 7.7 % (0.0-13.0) 01/30/22 03:06 Eos % (Auto) 1.1 % (0.9-2.9) 01/30/22 03:06 Baso % (Auto) 0.1 % (0.2-1.0) L 01/30/22 03:06 Neut # (Auto) 9.8 x10^3/uL (2.2-4.8) H 01/30/22 03:06 Lymph # (Auto) 3.9 X10^3/uL (1.3-2.9) H 01/30/22 03:06 [place] # (Auto) 1.2 x10^3/uL (0.3-0.8) H 01/30/22 03:06 Eos # (Auto) 0.2 x10^3/uL (0.0-0.2) 01/30/22 03:06 Baso # (Auto) 0.0 X10^3/uL (0.0-0.1) 01/30/22 03:06 Absolute Nucleated RBC 0.3 /100WBC 01/30/22 03:06 Plt Morphology Comment Normal (NORMAL) 01/30/22 03:06 RBC Morphology Abnormal (NORMAL) A 01/30/22 03:06 Hypochromasia Slight A 01/30/22 03:06 Poikilocytosis 2+ A 01/30/22 03:06 Anisocytosis 1+ A 01/30/22 03:06 Target Cells Present 01/30/22 03:06 [place] Cells Present 01/30/22 03:06 Schistocytes Present 01/30/22 03:06 Sodium 140 mmol/L (136-145) 01/30/22 03:06 Corrected Sodium 141 mmol/L (136-145) 01/30/22 03:06 Potassium 4.0 mmol/L (3.5-5.1) 01/30/22 03:06 Chloride 112 mmol/L (98-107) H 01/30/22 03:06 Carbon Dioxide 19.8 mmol/L (21-32) L 01/30/22 03:06 BUN 58 mg/dL (7-18) H 01/30/22 03:06 Creatinine 2.60 mg/dL (0.55-1.02) H 01/30/22 03:06 Est GFR (MDRD) Af Amer 24 (>60) L 01/30/22 03:06 Est GFR (MDRD) Non-Af 20 (>60) L 01/30/22 03:06 Glucose 148 mg/dL (65-99) H 01/30/22 03:06 POC Glucose (mg/dL) 123 mg/dL (65-99) H 01/30/22 11:08 Lactic Acid 2.7 mmol/L (0.4-2.0) H 01/30/22 03:06 Calcium 7.9 mg/dL (8.5-10.1) L 01/30/22 03:06 Corrected Calcium 10.4 mg/dL (8.5-10.1) H 01/30/22 03:06 Total Bilirubin 0.20 mg/dL (0.2-1.0) 01/30/22 03:06 AST 14 Units/L (15-37) L 01/30/22 03:06 ALT < 6 Units/L (12-78) L 01/30/22 03:06 Alkaline Phosphatase 122 Units/L (46-116) H 01/30/22 03:06 Total Protein 5.2 g/dL (6.4-8.2) L 01/30/22 03:06 Albumin 0.9 g/dL (3.4-5.0) L 01/30/22 03:06 Globulin 4.3 g/dL (2.5-4.5) 01/30/22 03:06 Albumin/Globulin Ratio 0.2 Ratio (1.1-2.1) L 01/30/22 03:06 Specimen Type Catherized urine 01/29/22 20:24 Urine Color Yellow (YELLOW) 01/29/22 20:24 Urine Appearance Turbid (CLEAR) 01/29/22 20:24 Urine pH 6.0 (5.0 - 8.0) 01/29/22 20:24 Ur Specific [place] 1.015 (1.000-1.030) 01/29/22 20:24 Urine Protein 3+ (NEGATIVE) 01/29/22 20:24 Urine Glucose (UA) Negative (NEGATIVE) 01/29/22 20:24 Urine Ketones Negative (NEGATIVE) 01/29/22 20:24 Urine Blood 2+ (NEGATIVE) 01/29/22 20:24 Urine Nitrite Negative (NEGATIVE) 01/29/22 20:24 Urine Bilirubin Negative (NEGATIVE) 01/29/22 20:24 Urine Urobilinogen Normal (NORMAL) 01/29/22 20:24 Ur Leukocyte Esterase 3+ (NEGATIVE) 01/29/22 20:24 Urine RBC None seen /HPF (0-3) 01/29/22 20:24 Urine WBC Tntc /HPF (0-5) A 01/29/22 20:24 Ur Squamous Epith Cells Few /HPF (NEGATIVE) 01/29/22 20:24 Amorphous Sediment Trace /HPF (NEGATIVE) 01/29/22 20:24 Urine Bacteria Trace /HPF (NEGATIVE) 01/29/22 20:24 Urine Yeast Few /HPF (NEGATIVE) 01/29/22 20:24 Ur Culture Indicated? Yes/culture set up 01/29/22 20:24 - Assessment and Plan 1: infected large sacral ulcer . stage 4 ... 13 x 14 cm . anemia .. malnutrition with Albumin 0.9. UTI . confinement to bed .. for debridement in the OR in am ..
[2022-01-30] MEDS: ZYVOX 600MG IV 600 MG/300 ML BAG IV SCH ×2 (16:43→21:46)
[2022-01-30] MEDS: ZOSYN VIAL 3.375 GRAMS 3.375 G in NS 100 ML IV 100 ML IV SCH ×2 (16:43→21:44)
[2022-01-30] MEDS: MORPHINE SULFATE INJ 4 MG IM PRN ×2 (17:37→21:45)
[2022-01-30] MEDS ORDERED: ZOFRAN INJ 4 MG VIAL IVP PRN (21:22)
[2022-01-30] MEDS ORDERED: NS 1,000 ML IV 1,000 ML IV ONE (23:51)
[2022-01-31] MEDS: NS 1,000 ML IV 1,000 ML IV SCH ×6 (01:00→20:56)
[2022-01-31 04:48] LABS: BASOPHILS % (AUTO) 0.1 % (0.2-1.0); EOSINOPHILS # (AUTO) 0.4 x10^3/uL (0.0-0.2); EOSINOPHILS % (AUTO) 3.1 % (0.9-2.9); HEMATOCRIT 24.3 % (36.0-47.0); HEMOGLOBIN 8.3 g/dL (12.0-16.0); LYMPHOCYTES # (AUTO) 2.7 X10^3/uL (1.3-2.9); LYMPHOCYTES % (AUTO) 24.3 % (21.0-51.0); MEAN CORPUSCULAR HEMOGLOBIN 31.7 pg (27.0-34.0); MEAN CORPUSCULAR HGB CONC 34.2 g/dL (33.0-35.0); MEAN CORPUSCULAR VOLUME 92.7 fL (80.0-100.0); MEAN PLATELET VOLUME 8.9 fL (7.4-11.0); MONOCYTES # (AUTO) 0.9 x10^3/uL (0.3-0.8); MONOCYTES % (AUTO) 8.3 % (0.0-13.0); NEUTROPHILS # (AUTO) 7.2 x10^3/uL (2.2-4.8); NEUTROPHILS % (AUTO) 64.2 % (42.0-75.0); RED BLOOD COUNT 2.62 X10^6/uL (3.5-5.4); RED CELL DISTRIBUTION WIDTH 20.9 % (11.6-16.5); WHITE BLOOD COUNT 11.2 X10^3/uL (3.6-10.0)
[2022-01-31 05:05] LABS: ALBUMIN 0.8 g/dL (3.4-5.0); CALCIUM 7.6 mg/dL (8.5-10.1); CARBON DIOXIDE 19.9 mmol/L (21-32); COR CA(FOR HYPOALB) 10.2 mg/dL (8.5-10.1); CREATININE 2.15 mg/dL (0.55-1.02); TOTAL PROTEIN 5.2 g/dL (6.4-8.2)
[2022-01-31 05:37] LABS: ANISOCYTOSIS 1+; HYPOCHROMASIA SLIGHT; PLATELET MORPHOLOGY COMMENT NORMAL (NORMAL); POIKILOCYTOSIS 1+; TARGET CELLS PRESENT
[2022-01-31 05:38] LABS: BURR CELLS PRESENT; SCHISTOCYTES PRESENT
[2022-01-31] MEDS ORDERED: PROCRIT or EPOGEN VIAL 10,000 UNITS SC ONE (08:20)
[2022-01-31] MEDS ORDERED: BETADINE SOLN ONE (08:35)
[2022-01-31] MEDS ORDERED: ANCEF VIAL 1 GRAM ONE (08:49)
[2022-01-31] MEDS ORDERED: VERSED ONE (08:52)
[2022-01-31] MEDS ORDERED: KETAMINE HCL ONE (08:53)
[2022-01-31] MEDS ORDERED: FENTANYL VIAL INJ 100 mcg ONE (08:53)
[2022-01-31] MEDS ORDERED: DIPRIVAN VIAL 20 ML ONE (08:57)
[2022-01-31] MEDS ORDERED: VANCOMYCIN HCL ONE (08:57)
[2022-01-31] MEDS ORDERED: NS 500 ML IV 500 ML IV ONE (08:58)
[2022-01-31] MEDS ORDERED: POLYMYXIN B SULFATE ONE ×2 (09:03→09:06)
[2022-01-31] MEDS: NYSTATIN POWDER TOP SCH ×2 (10:41→20:57)
[2022-01-31] MEDS: ZOSYN VIAL 3.375 GRAMS 3.375 G in NS 100 ML IV 100 ML IV SCH ×2 (10:41→21:03)
[2022-01-31] MEDS: ZYVOX 600MG IV 600 MG/300 ML BAG IV SCH ×2 (10:42→21:04)
[2022-01-31] MEDS ORDERED: PROCRIT or EPOGEN VIAL 10,000 UNITS ONE (10:48)
[2022-01-31] MEDS: MORPHINE SULFATE INJ 4 MG IM PRN (15:22)
[2022-01-31] MEDS: NORCO 5/325 MG TAB PO PRN (21:04)
[2022-02-01 05:01] LABS: BASOPHILS % (AUTO) 0.2 % (0.2-1.0); EOSINOPHILS # (AUTO) 0.4 x10^3/uL (0.0-0.2); HEMATOCRIT 21.3 % (36.0-47.0); HEMOGLOBIN 7.3 g/dL (12.0-16.0); LYMPHOCYTES # (AUTO) 3.6 X10^3/uL (1.3-2.9); LYMPHOCYTES % (AUTO) 27.1 % (21.0-51.0); MEAN CORPUSCULAR HEMOGLOBIN 31.2 pg (27.0-34.0); MEAN CORPUSCULAR VOLUME 91.6 fL (80.0-100.0); MEAN PLATELET VOLUME 8.9 fL (7.4-11.0); MONOCYTES # (AUTO) 1.2 x10^3/uL (0.3-0.8); MONOCYTES % (AUTO) 9.1 % (0.0-13.0); NEUTROPHILS # (AUTO) 8.1 x10^3/uL (2.2-4.8); NEUTROPHILS % (AUTO) 60.6 % (42.0-75.0); RED BLOOD COUNT 2.33 X10^6/uL (3.5-5.4); WHITE BLOOD COUNT 13.3 X10^3/uL (3.6-10.0)
[2022-02-01 05:11] LABS: ALBUMIN 0.8 g/dL (3.4-5.0); CALCIUM 7.4 mg/dL (8.5-10.1); CARBON DIOXIDE 18.5 mmol/L (21-32); CREATININE 1.93 mg/dL (0.55-1.02); TOTAL PROTEIN 4.9 g/dL (6.4-8.2)
[2022-02-01 05:50] LABS: ANISOCYTOSIS 1+; PLATELET MORPHOLOGY COMMENT NORMAL (NORMAL); POIKILOCYTOSIS 1+
[2022-02-01 05:51] LABS: BURR CELLS PRESENT; SCHISTOCYTES PRESENT; TARGET CELLS PRESENT
[2022-02-01] MEDS: NS 1,000 ML IV 1,000 ML IV SCH ×4 (05:52→20:33)
[2022-02-01] MEDS: NYSTATIN POWDER TOP SCH ×2 (09:20→20:33)
[2022-02-01] MEDS: ZYVOX 600MG IV 600 MG/300 ML BAG IV SCH ×2 (09:20→20:35)
[2022-02-01] MEDS: MORPHINE SULFATE INJ 4 MG IVP PRN ×2 (09:56→17:40)
[2022-02-01] MEDS: ZOSYN VIAL 3.375 GRAMS 3.375 G in NS 100 ML IV 100 ML IV SCH ×2 (11:42→20:35)
--- NOTE | 2022-02-01 17:19 | DR.PROGNOT ---
Hospital Progress Notes - Progress Note for Day of: Progress Note Date: 02/01/22 - Chief Complaint Chief Complaint: no changes ,. wound vac is functioning well. WBC 13.3.. Hgb 7.2 .. Albumin 0.8 ... BUN/CREA 50/1.9. U/A showing UTI . - Past Medical Family Social History Past Med/Fam/Surg Hx: No changes since H&P Allergies: Allergies No Known Drug Allergies Allergy (Verified 10/15/21 10:45) - Review Of Systems ROS: No change since H&P - Vital Signs Vital Signs: Temperature 97.6 F Pulse Rate [Right Radial] 69 Pulse Rate 99 Respiratory Rate 17 Blood Pressure [Left Arm] 151/67 Blood Pressure [Right Arm] 117/63 Blood Pressure 130/60 O2 Sat by Pulse Oximetry 100 - Physical Exam Oriented: Not Oriented Eyes: Normal Ear: Normal Nose: Normal Cardiovascular: Normal GI:Auscultation: Normal GI: Tenderness: Other (PEG tube in place .. ) Skin: Other (large sacral ulcer stage 4 with skin necrosis and undermined skin ) Speech Pattern: Clear, Appropriate - Laboratory and Diagnostics Result Diagrams: 02/01/22 03:37 02/01/22 03:37 Labs: 01/31/22 09:20 Sacral Wound Gram Stain - Final 01/31/22 09:20 Sacral Wound Culture - Preliminary 01/29/22 20:15 Sacral Wound Gram Stain - Final 01/29/22 20:15 Sacral Wound Culture - Final Klebsiella Pneumoniae Methicillin Resis Staph Aureus 01/29/22 20:24 Urine,Catheterized Urine Culture - Final Enterococcus Faecium Laboratory WBC 13.3 X10^3/uL (3.6-10.0) H 02/01/22 03:37 RBC 2.33 X10^6/uL (3.5-5.4) L 02/01/22 03:37 Hgb 7.3 g/dL (12.0-16.0) L 02/01/22 03:37 Hct 21.3 % (36.0-47.0) L 02/01/22 03:37 MCV 91.6 fL (80.0-100.0) 02/01/22 03:37 MCH 31.2 pg (27.0-34.0) 02/01/22 03:37 MCHC 34.0 g/dL (33.0-35.0) 02/01/22 03:37 RDW 21.0 % (11.6-16.5) H 02/01/22 03:37 Plt Count 352 X10^3/uL (150.0-450.0) 02/01/22 03:37 Plt Count Comment Adequate (ADEQUATE) 02/01/22 03:37 MPV 8.9 fL (7.4-11.0) 02/01/22 03:37 Neut % (Auto) 60.6 % (42.0-75.0) 02/01/22 03:37 Lymph % (Auto) 27.1 % (21.0-51.0) 02/01/22 03:37 [place] % (Auto) 9.1 % (0.0-13.0) 02/01/22 03:37 Eos % (Auto) 3.0 % (0.9-2.9) H 02/01/22 03:37 Baso % (Auto) 0.2 % (0.2-1.0) 02/01/22 03:37 Neut # (Auto) 8.1 x10^3/uL (2.2-4.8) H 02/01/22 03:37 Lymph # (Auto) 3.6 X10^3/uL (1.3-2.9) H 02/01/22 03:37 [place] # (Auto) 1.2 x10^3/uL (0.3-0.8) H 02/01/22 03:37 Eos # (Auto) 0.4 x10^3/uL (0.0-0.2) H 02/01/22 03:37 Baso # (Auto) 0.0 X10^3/uL (0.0-0.1) 02/01/22 03:37 Absolute Nucleated RBC 0.5 /100WBC 02/01/22 03:37 Plt Morphology Comment Normal (NORMAL) 02/01/22 03:37 RBC Morphology Abnormal (NORMAL) A 02/01/22 03:37 Hypochromasia Slight A 01/31/22 04:05 Poikilocytosis 1+ A 02/01/22 03:37 Anisocytosis 1+ A 02/01/22 03:37 Target Cells Present 02/01/22 03:37 Janae Cells Present 02/01/22 03:37 Schistocytes Present 02/01/22 03:37 Sodium 137 mmol/L (136-145) 02/01/22 03:37 Corrected Sodium 138 mmol/L (136-145) 02/01/22 03:37 Potassium 4.1 mmol/L (3.5-5.1) 02/01/22 03:37 Chloride 112 mmol/L (98-107) H 02/01/22 03:37 Carbon Dioxide 18.5 mmol/L (21-32) L 02/01/22 03:37 BUN 50 mg/dL (7-18) H 02/01/22 03:37 Creatinine 1.93 mg/dL (0.55-1.02) H 02/01/22 03:37 Est GFR (MDRD) Af Amer 33 (>60) L 02/01/22 03:37 Est GFR (MDRD) Non-Af 28 (>60) L 02/01/22 03:37 Glucose 124 mg/dL (65-99) H 02/01/22 03:37 POC Glucose (mg/dL) 140 mg/dL (65-99) H 02/01/22 16:08 Lactic Acid 2.7 mmol/L (0.4-2.0) H 01/30/22 03:06 Calcium 7.4 mg/dL (8.5-10.1) L 02/01/22 03:37 Corrected Calcium 10.0 mg/dL (8.5-10.1) 02/01/22 03:37 Total Bilirubin 0.30 mg/dL (0.2-1.0) 02/01/22 03:37 AST 26 Units/L (15-37) 02/01/22 03:37 ALT 13 Units/L (12-78) 02/01/22 03:37 Alkaline Phosphatase 308 Units/L (46-116) H 02/01/22 03:37 Total Protein 4.9 g/dL (6.4-8.2) L 02/01/22 03:37 Albumin 0.8 g/dL (3.4-5.0) L 02/01/22 03:37 Globulin 4.1 g/dL (2.5-4.5) 02/01/22 03:37 Albumin/Globulin Ratio 0.2 Ratio (1.1-2.1) L 02/01/22 03:37 Specimen Type Catherized urine 01/29/22 20:24 Urine Color Yellow (YELLOW) 01/29/22 20:24 Urine Appearance Turbid (CLEAR) 01/29/22 20:24 Urine pH 6.0 (5.0 - 8.0) 01/29/22 20:24 Ur Specific [place] 1.015 (1.000-1.030) 01/29/22 20:24 Urine Protein 3+ (NEGATIVE) 01/29/22 20:24 Urine Glucose (UA) Negative (NEGATIVE) 01/29/22 20:24 Urine Ketones Negative (NEGATIVE) 01/29/22 20:24 Urine Blood 2+ (NEGATIVE) 01/29/22 20:24 Urine Nitrite Negative (NEGATIVE) 01/29/22 20:24 Urine Bilirubin Negative (NEGATIVE) 01/29/22 20:24 Urine Urobilinogen Normal (NORMAL) 01/29/22 20:24 Ur Leukocyte Esterase 3+ (NEGATIVE) 01/29/22 20:24 Urine RBC None seen /HPF (0-3) 01/29/22 20:24 Urine WBC Tntc /HPF (0-5) A 01/29/22 20:24 Ur Squamous Epith Cells Few /HPF (NEGATIVE) 01/29/22 20:24 Amorphous Sediment Trace /HPF (NEGATIVE) 01/29/22 20:24 Urine Bacteria Trace /HPF (NEGATIVE) 01/29/22 20:24 Urine Yeast Few /HPF (NEGATIVE) 01/29/22 20:24 Ur Culture Indicated? Yes/culture set up 01/29/22 20:24 Tissue Pathology To follow 01/31/22 09:50 - Assessment and Plan 1: infected large sacral ulcer . stage 4 ... 13 x 14 cm . s/p debridement and wound vac. anemia .. malnutrition with Albumin 0.8. UTI . confinement to bed .. same plan ..
[2022-02-01] MEDS: NORCO 5/325 MG TAB PO PRN (20:35)
[2022-02-02 05:23] LABS: BASOPHILS % (AUTO) 0.3 % (0.2-1.0); EOSINOPHILS # (AUTO) 0.3 x10^3/uL (0.0-0.2); EOSINOPHILS % (AUTO) 2.6 % (0.9-2.9); HEMATOCRIT 20.3 % (36.0-47.0); LYMPHOCYTES # (AUTO) 3.2 X10^3/uL (1.3-2.9); LYMPHOCYTES % (AUTO) 27.7 % (21.0-51.0); MEAN CORPUSCULAR HEMOGLOBIN 30.4 pg (27.0-34.0); MEAN CORPUSCULAR VOLUME 92.1 fL (80.0-100.0); MEAN PLATELET VOLUME 8.8 fL (7.4-11.0); MONOCYTES % (AUTO) 8.3 % (0.0-13.0); NEUTROPHILS % (AUTO) 61.1 % (42.0-75.0); WHITE BLOOD COUNT 11.5 X10^3/uL (3.6-10.0)
[2022-02-02 05:35] LABS: ALBUMIN 0.7 g/dL (3.4-5.0); CALCIUM 7.1 mg/dL (8.5-10.1); CARBON DIOXIDE 19.1 mmol/L (21-32); COR CA(FOR HYPOALB) 9.7 mg/dL (8.5-10.1); CREATININE 1.72 mg/dL (0.55-1.02); TOTAL PROTEIN 4.8 g/dL (6.4-8.2)
[2022-02-02 05:50] LABS: HEMOGLOBIN 6.7 g/dL (12.0-16.0)
[2022-02-02] MEDS: NS 1,000 ML IV 1,000 ML IV SCH ×3 (05:51→21:00)
[2022-02-02 05:53] LABS: ANISOCYTOSIS 1+; BURR CELLS PRESENT; HYPOCHROMASIA SLIGHT; PLATELET MORPHOLOGY COMMENT NORMAL (NORMAL); POIKILOCYTOSIS 1+; SCHISTOCYTES PRESENT; TARGET CELLS PRESENT
[2022-02-02] MEDS: NYSTATIN POWDER TOP SCH ×2 (08:21→21:02)
[2022-02-02] MEDS ORDERED: PROCRIT or EPOGEN VIAL 10,000 UNITS SC PRN (09:00)
[2022-02-02] MEDS: ZOSYN VIAL 3.375 GRAMS 3.375 G in NS 100 ML IV 100 ML IV SCH ×2 (09:15→21:02)
[2022-02-02] MEDS: ZYVOX 600MG IV 600 MG/300 ML BAG IV SCH ×2 (09:30→20:57)
[2022-02-02] MEDS: MORPHINE SULFATE INJ 4 MG IVP PRN ×2 (10:15→16:07)
[2022-02-02] MEDS: NORCO 5/325 MG TAB PO PRN (21:03)
[2022-02-03] MEDS: NS 1,000 ML IV 1,000 ML IV SCH ×3 (05:50→19:22)
[2022-02-03 05:52] LABS: BASOPHILS # (AUTO) 0.3 X10^3/uL (0.0-0.1); BASOPHILS % (AUTO) 2.6 % (0.2-1.0); EOSINOPHILS # (AUTO) 0.3 x10^3/uL (0.0-0.2); EOSINOPHILS % (AUTO) 2.4 % (0.9-2.9); HEMATOCRIT 21.5 % (36.0-47.0); HEMOGLOBIN 7.2 g/dL (12.0-16.0); LYMPHOCYTES % (AUTO) 28.3 % (21.0-51.0); MEAN CORPUSCULAR HEMOGLOBIN 30.2 pg (27.0-34.0); MEAN CORPUSCULAR HGB CONC 33.7 g/dL (33.0-35.0); MEAN CORPUSCULAR VOLUME 89.6 fL (80.0-100.0); MEAN PLATELET VOLUME 8.6 fL (7.4-11.0); MONOCYTES # (AUTO) 0.7 x10^3/uL (0.3-0.8); MONOCYTES % (AUTO) 6.5 % (0.0-13.0); NEUTROPHILS # (AUTO) 6.4 x10^3/uL (2.2-4.8); NEUTROPHILS % (AUTO) 60.2 % (42.0-75.0); RED CELL DISTRIBUTION WIDTH 20.4 % (11.6-16.5); WHITE BLOOD COUNT 10.6 X10^3/uL (3.6-10.0)
[2022-02-03 05:58] LABS: ALANINE AMINOTRANSFERASE 14 Units/L (12-78); ALBUMIN 0.8 g/dL (3.4-5.0); ALKALINE PHOSPHATASE 375 Units/L (46-116); ASPARTATE AMINO TRANSFERASE 19 Units/L (15-37); BLOOD UREA NITROGEN 38 mg/dL (7-18); CALCIUM 7.3 mg/dL (8.5-10.1); CARBON DIOXIDE 19.8 mmol/L (21-32); COR CA(FOR HYPOALB) 9.9 mg/dL (8.5-10.1); SODIUM 142 mmol/L (136-145); TOTAL PROTEIN 5.2 g/dL (6.4-8.2); eGFR NON BLACK RACES 34 (>60)
[2022-02-03 06:06] LABS: PLATELET MORPHOLOGY COMMENT NORMAL (NORMAL)
[2022-02-03 06:08] LABS: ANISOCYTOSIS 1+; BURR CELLS PRESENT; HYPOCHROMASIA SLIGHT; POIKILOCYTOSIS 1+; SCHISTOCYTES PRESENT; TARGET CELLS PRESENT
[2022-02-03 06:15] LABS: CHLORIDE 115 mmol/L (98-107)
[2022-02-03] MEDS: ZYVOX 600MG IV 600 MG/300 ML BAG IV SCH ×2 (08:42→20:30)
[2022-02-03] MEDS: MORPHINE SULFATE INJ 4 MG IVP PRN ×2 (08:43→22:56)
[2022-02-03] MEDS: NYSTATIN POWDER TOP SCH ×2 (08:45→20:25)
[2022-02-03] MEDS: ZOSYN VIAL 3.375 GRAMS 3.375 G in NS 100 ML IV 100 ML IV SCH ×2 (11:00→20:31)
[2022-02-04] MEDS: NS 1,000 ML IV 1,000 ML IV SCH ×3 (03:50→21:50)
[2022-02-04 05:05] LABS: BASOPHILS % (AUTO) 0.3 % (0.2-1.0); EOSINOPHILS # (AUTO) 0.2 x10^3/uL (0.0-0.2); EOSINOPHILS % (AUTO) 2.5 % (0.9-2.9); LYMPHOCYTES % (AUTO) 32.6 % (21.0-51.0); MEAN CORPUSCULAR HEMOGLOBIN 31.4 pg (27.0-34.0); MEAN CORPUSCULAR HGB CONC 34.7 g/dL (33.0-35.0); MEAN CORPUSCULAR VOLUME 90.6 fL (80.0-100.0); MEAN PLATELET VOLUME 8.2 fL (7.4-11.0); MONOCYTES # (AUTO) 0.8 x10^3/uL (0.3-0.8); MONOCYTES % (AUTO) 8.6 % (0.0-13.0); NEUTROPHILS # (AUTO) 5.2 x10^3/uL (2.2-4.8); RED BLOOD COUNT 2.21 X10^6/uL (3.5-5.4); WHITE BLOOD COUNT 9.3 X10^3/uL (3.6-10.0)
[2022-02-04 05:26] LABS: ALANINE AMINOTRANSFERASE 14 Units/L (12-78); ALBUMIN 0.8 g/dL (3.4-5.0); ALKALINE PHOSPHATASE 360 Units/L (46-116); ASPARTATE AMINO TRANSFERASE 16 Units/L (15-37); BLOOD UREA NITROGEN 32 mg/dL (7-18); CALCIUM 7.2 mg/dL (8.5-10.1); CARBON DIOXIDE 19.8 mmol/L (21-32); COR CA(FOR HYPOALB) 9.8 mg/dL (8.5-10.1); CREATININE 1.53 mg/dL (0.55-1.02); SODIUM 143 mmol/L (136-145); TOTAL PROTEIN 5.2 g/dL (6.4-8.2); eGFR NON BLACK RACES 36 (>60)
[2022-02-04 05:29] LABS: HEMOGLOBIN 6.9 g/dL (12.0-16.0)
[2022-02-04 05:30] LABS: ANISOCYTOSIS 1+; BURR CELLS PRESENT; HYPOCHROMASIA 1+; PLATELET MORPHOLOGY COMMENT NORMAL (NORMAL); POIKILOCYTOSIS 1+; TARGET CELLS PRESENT
[2022-02-04 05:31] LABS: SCHISTOCYTES PRESENT
[2022-02-04 05:34] LABS: CHLORIDE 116 mmol/L (98-107)
[2022-02-04] MEDS: ZYVOX 600MG IV 600 MG/300 ML BAG IV SCH ×2 (08:57→21:27)
[2022-02-04] MEDS: ZOSYN VIAL 3.375 GRAMS 3.375 G in NS 100 ML IV 100 ML IV SCH ×2 (08:58→21:50)
[2022-02-04] MEDS: MORPHINE SULFATE INJ 4 MG IVP PRN ×3 (09:03→21:57)
[2022-02-04] MEDS: NYSTATIN POWDER TOP SCH ×2 (09:11→21:50)
--- NOTE | 2022-02-04 11:59 | DR.PROGNOT ---
Hospital Progress Notes - Progress Note for Day of: Progress Note Date: 02/04/22 - Chief Complaint Chief Complaint: no changes ,. wound vac is functioning well. WBC 9.3.. Hgb 6.9 .. Albumin 0.8 ... BUN/CREA 32/1.5. U/A showing UTI . wound vac is functioning well - Past Medical Family Social History Past Med/Fam/Surg Hx: No changes since H&P Allergies: Allergies No Known Drug Allergies Allergy (Verified 10/15/21 10:45) - Review Of Systems ROS: No change since H&P - Vital Signs Vital Signs: Temperature 97.9 F Pulse Rate [Right Radial] 69 Pulse Rate 90 Respiratory Rate 20 Blood Pressure [Left Arm] 151/67 Blood Pressure [Right Arm] 117/63 Blood Pressure 151/63 O2 Sat by Pulse Oximetry 96 - Physical Exam Oriented: Not Oriented Eyes: Normal Ear: Normal Nose: Normal Cardiovascular: Normal GI:Auscultation: Normal GI: Tenderness: Other (PEG tube in place .. ) Skin: Other (large sacral ulcer stage 4 with skin necrosis and undermined skin ) Speech Pattern: Clear, Appropriate - Laboratory and Diagnostics Result Diagrams: 02/04/22 04:45 02/04/22 04:40 Labs: 01/31/22 09:20 Sacral Wound Gram Stain - Final 01/31/22 09:20 Sacral Wound Culture - Preliminary Klebsiella Pneumoniae Methicillin Resis Staph Aureus 01/29/22 20:15 Sacral Wound Gram Stain - Final 01/29/22 20:15 Sacral Wound Culture - Final Klebsiella Pneumoniae Methicillin Resis Staph Aureus 01/29/22 20:24 Urine,Catheterized Urine Culture - Final Enterococcus Faecium Laboratory WBC 9.3 X10^3/uL (3.6-10.0) 02/04/22 04:45 RBC 2.21 X10^6/uL (3.5-5.4) L 02/04/22 04:45 Hgb 6.9 g/dL (12.0-16.0) L* 02/04/22 04:45 Hct 20.0 % (36.0-47.0) L* 02/04/22 04:45 MCV 90.6 fL (80.0-100.0) 02/04/22 04:45 MCH 31.4 pg (27.0-34.0) 02/04/22 04:45 MCHC 34.7 g/dL (33.0-35.0) 02/04/22 04:45 RDW 21.0 % (11.6-16.5) H 02/04/22 04:45 Plt Count 412 X10^3/uL (150.0-450.0) 02/04/22 04:45 Plt Count Comment Adequate (ADEQUATE) 02/04/22 04:45 MPV 8.2 fL (7.4-11.0) 02/04/22 04:45 Neut % (Auto) 56.0 % (42.0-75.0) 02/04/22 04:45 Lymph % (Auto) 32.6 % (21.0-51.0) 02/04/22 04:45 [place] % (Auto) 8.6 % (0.0-13.0) 02/04/22 04:45 Eos % (Auto) 2.5 % (0.9-2.9) 02/04/22 04:45 Baso % (Auto) 0.3 % (0.2-1.0) 02/04/22 04:45 Neut # (Auto) 5.2 x10^3/uL (2.2-4.8) H 02/04/22 04:45 Lymph # (Auto) 3.0 X10^3/uL (1.3-2.9) H 02/04/22 04:45 [place] # (Auto) 0.8 x10^3/uL (0.3-0.8) 02/04/22 04:45 Eos # (Auto) 0.2 x10^3/uL (0.0-0.2) 02/04/22 04:45 Baso # (Auto) 0.0 X10^3/uL (0.0-0.1) 02/04/22 04:45 Absolute Nucleated RBC 0.3 /100WBC 02/04/22 04:45 Total Counted 100 02/03/22 05:24 Neutrophils % (Manual) 68 % (39-76) 02/03/22 05:24 Lymphocytes % (Manual) 26 % (13-43) 02/03/22 05:24 Monocytes % (Manual) 5 % (4-9) 02/03/22 05:24 Eosinophils % (Manual) 1 % (0-6) 02/03/22 05:24 Plt Morphology Comment Normal (NORMAL) 02/04/22 04:45 RBC Morphology Abnormal (NORMAL) A 02/04/22 04:45 Hypochromasia 1+ A 02/04/22 04:45 Poikilocytosis 1+ A 02/04/22 04:45 Anisocytosis 1+ A 02/04/22 04:45 Target Cells Present 02/04/22 04:45 Janae Cells Present 02/04/22 04:45 Schistocytes Present 02/04/22 04:45 Sodium 143 mmol/L (136-145) 02/04/22 04:40 Corrected Sodium TNP 02/04/22 04:40 Potassium 3.9 mmol/L (3.5-5.1) 02/04/22 04:40 Chloride 116 mmol/L (98-107) H* 02/04/22 04:40 Carbon Dioxide 19.8 mmol/L (21-32) L 02/04/22 04:40 BUN 32 mg/dL (7-18) H 02/04/22 04:40 Creatinine 1.53 mg/dL (0.55-1.02) H 02/04/22 04:40 Est GFR (MDRD) Af Amer 44 (>60) L 02/04/22 04:40 Est GFR (MDRD) Non-Af 36 (>60) L 02/04/22 04:40 Glucose 105 mg/dL (65-99) H 02/04/22 04:40 POC Glucose (mg/dL) 116 mg/dL (65-99) H 02/04/22 11:51 Lactic Acid 2.7 mmol/L (0.4-2.0) H 01/30/22 03:06 Calcium 7.2 mg/dL (8.5-10.1) L 02/04/22 04:40 Corrected Calcium 9.8 mg/dL (8.5-10.1) 02/04/22 04:40 Total Bilirubin 0.20 mg/dL (0.2-1.0) 02/04/22 04:40 AST 16 Units/L (15-37) 02/04/22 04:40 ALT 14 Units/L (12-78) 02/04/22 04:40 Alkaline Phosphatase 360 Units/L (46-116) H 02/04/22 04:40 Total Protein 5.2 g/dL (6.4-8.2) L 02/04/22 04:40 Albumin 0.8 g/dL (3.4-5.0) L 02/04/22 04:40 Globulin 4.4 g/dL (2.5-4.5) 02/04/22 04:40 Albumin/Globulin Ratio 0.2 Ratio (1.1-2.1) L 02/04/22 04:40 Specimen Type Catherized urine 01/29/22 20:24 Urine Color Yellow (YELLOW) 01/29/22 20:24 Urine Appearance Turbid (CLEAR) 01/29/22 20:24 Urine pH 6.0 (5.0 - 8.0) 01/29/22 20:24 Ur Specific [place] 1.015 (1.000-1.030) 01/29/22 20:24 Urine Protein 3+ (NEGATIVE) 01/29/22 20:24 Urine Glucose (UA) Negative (NEGATIVE) 01/29/22 20:24 Urine Ketones Negative (NEGATIVE) 01/29/22 20:24 Urine Blood 2+ (NEGATIVE) 01/29/22 20:24 Urine Nitrite Negative (NEGATIVE) 01/29/22 20:24 Urine Bilirubin Negative (NEGATIVE) 01/29/22 20:24 Urine Urobilinogen Normal (NORMAL) 01/29/22 20:24 Ur Leukocyte Esterase 3+ (NEGATIVE) 01/29/22 20:24 Urine RBC None seen /HPF (0-3) 01/29/22 20:24 Urine WBC Tntc /HPF (0-5) A 01/29/22 20:24 Ur Squamous Epith Cells Few /HPF (NEGATIVE) 01/29/22 20:24 Amorphous Sediment Trace /HPF (NEGATIVE) 01/29/22 20:24 Urine Bacteria Trace /HPF (NEGATIVE) 01/29/22 20:24 Urine Yeast Few /HPF (NEGATIVE) 01/29/22 20:24 Ur Culture Indicated? Yes/culture set up 01/29/22 20:24 Tissue Pathology To follow 01/31/22 09:50 Blood Type B NEGATIVE 02/02/22 09:07 Antibody Screen Positive 02/02/22 09:07 Crossmatch See Detail 02/02/22 09:07 - Assessment and Plan 1: infected large sacral ulcer . stage 4 ... 13 x 14 cm . s/p debridement and wound vac. anemia .. malnutrition with Albumin 0.8. UTI . confinement to bed .. same surgical and medical plan ..
[2022-02-04] MEDS ORDERED: NS 250 ML IV 250 ML IV ONE (12:52)
[2022-02-05] MEDS: NS 1,000 ML IV 1,000 ML IV SCH (03:40)
[2022-02-05] MEDS ORDERED: NS 100 ML IV 100 ML ONE (03:52)
[2022-02-05] MEDS: ZYVOX 600MG IV 600 MG/300 ML BAG IV SCH (09:20)
[2022-02-05] MEDS: ZOSYN VIAL 3.375 GRAMS 3.375 G in NS 100 ML IV 100 ML IV SCH (09:20)
[2022-02-05] MEDS: NYSTATIN POWDER TOP SCH (09:21)
[2022-02-05 10:42] LABS: BASOPHILS % (AUTO) 0.3 % (0.2-1.0); EOSINOPHILS # (AUTO) 0.2 x10^3/uL (0.0-0.2); EOSINOPHILS % (AUTO) 1.7 % (0.9-2.9); HEMATOCRIT 29.8 % (36.0-47.0); LYMPHOCYTES # (AUTO) 2.9 X10^3/uL (1.3-2.9); LYMPHOCYTES % (AUTO) 29.8 % (21.0-51.0); MEAN CORPUSCULAR HEMOGLOBIN 29.1 pg (27.0-34.0); MEAN CORPUSCULAR VOLUME 85.8 fL (80.0-100.0); MEAN PLATELET VOLUME 7.8 fL (7.4-11.0); MONOCYTES # (AUTO) 0.7 x10^3/uL (0.3-0.8); MONOCYTES % (AUTO) 7.7 % (0.0-13.0); NEUTROPHILS # (AUTO) 5.8 x10^3/uL (2.2-4.8); NEUTROPHILS % (AUTO) 60.5 % (42.0-75.0); RED BLOOD COUNT 3.47 X10^6/uL (3.5-5.4); RED CELL DISTRIBUTION WIDTH 18.5 % (11.6-16.5); WHITE BLOOD COUNT 9.6 X10^3/uL (3.6-10.0)
[2022-02-05 10:44] LABS: HEMOGLOBIN 10.1 g/dL (12.0-16.0)
[2022-02-05 10:58] LABS: ALBUMIN 0.9 g/dL (3.4-5.0); CALCIUM 7.4 mg/dL (8.5-10.1); CARBON DIOXIDE 21.5 mmol/L (21-32); COR CA(FOR HYPOALB) 9.9 mg/dL (8.5-10.1); CREATININE 1.49 mg/dL (0.55-1.02); TOTAL PROTEIN 5.8 g/dL (6.4-8.2)
[2022-02-05 13:28] VITALS: BP 164/76
== END 2022-02-05 14:45 | DRG 580 ==
LOC: ICU 18:18 → MED/SURG 02-02 15:21
PROVIDERS: ADMIT Obstetrics & Gynecology Obstetrics; ATTEND Obstetrics & Gynecology Obstetrics
DX: R26.89 Other abnormalities of gait and mobility; B96.89 Other specified bacterial agents as the cause of diseases classified elsewhere; E86.0 Dehydration; E66.9 Obesity, unspecified; I87.2 Venous insufficiency (chronic) (peripheral); N17.8 Other acute kidney failure; L89.154 Pressure ulcer of sacral region, stage 4; Z89.611 Acquired absence of right leg above knee; B95.2 Enterococcus as the cause of diseases classified elsewhere; Z86.73 Personal history of transient ischemic attack (TIA), and cerebral infarction without residual deficits; Z93.1 Gastrostomy status; B95.62 Methicillin resistant Staphylococcus aureus infection as the cause of diseases classified elsewhere; N39.0 Urinary tract infection, site not specified; B96.1 Klebsiella pneumoniae [K. pneumoniae] as the cause of diseases classified elsewhere

== ENCOUNTER 2022-02-18 13:48 | Inpatient (IN) ==
[2022-02-18] MEDS ORDERED: ZOFRAN INJ 4 MG VIAL IVP ONE (15:26)
--- NOTE | 2022-02-18 15:26 | DR.NAUSEAF ---
HPI Time Seen Time Seen by Provider: 02/18/22 15:12 Primary Care Physician Primary Care Physician: clarissa HPI Comment HPI Comment: A 66 y/o female NHR sent over due to nausea and vomiting. She has a PEG tube in place. She denies abdominal pain. Complaints Chief Complaint:: [facility] STATES PT HAS BEEN NAUSEA/VOMITING TODAY STATES THEY GAVE HER THE FEEDING IN THE PEG TUBE AND SHE VOMITED IT UP. COVID-19 Coronavirus risk:travel/contact w/high risk person: No Has patient experienced Coronavirus symptoms: No Reviewed Nurses Notes Reviewed: Yes Source History Provided: Residential Mode of Arrival Mode of Arrival: Stretcher Timing Onset of Chief Complaint: 02/18/22 Context Recent: None Possible Ingestion: Unknown : No PMH PMH Past Medical History: Yes Past Medical History: CVA, Diabetes, Dyslipidemia and Hypertension Past Surgical History: Yes Surgical History: Cholecystectomy and Other Family History History of Family Medical Conditions: Yes Family Medical History: Diabetes Mellitus, Heart Failure and Hypertension Social History Does patient currently use any type of tobacco product: No Have you used tobacco products in the last 12 months: No Type of Tobacco Use: None Does any household member use tobacco: No Alcohol Use: None Do you use any recreational Drugs:: No Lives With: Other Lives Where: Residential Travel Risk Coronavirus risk:travel/contact w/high risk person: No Has patient experienced Coronavirus symptoms: No Infectious screening In the last 2 months have you had wt loss of >10#?: NO Have you had fever, night sweats or hemotysis?: No Have you traveled outside the country in the last 6 months?: No Isolation: Standard ROS Review of Systems Constitutional: No Symptoms Reported Eyes: No Symptoms Reported ENTM: No Symptoms Reported Respiratoy: No Symptoms Reported Cardiovascular: No Symptoms Reported Gastrointestinal/Abdominal: Nausea and Vomiting Genitourinary: No Symptoms Reported Neurological: No Symptoms Reported Musculoskeletal: No Symptoms Reported Integumentary: No Symptoms Reported Hematologic/Lymphatic: No Symptoms Reported Endocrine: No Symptoms Reported Psychiatric: No Symptoms Reported PE Vital Signs Vitals: Temperature 97.6 F Pulse Rate 50 Respiratory Rate 14 Blood Pressure [Left Arm] 151/67 Blood Pressure [Right Arm] 117/63 Blood Pressure 91/53 O2 Sat by Pulse Oximetry 100 General Limitations: Physical Limitation General Appearance: Alert and In No Apparent Distress Head Head Exam: Normal Inspection, Atraumatic and Normocephalic Eyes Eye exam: Normal Appearance and EOMI ENT ENT Exam: Normal Exam, Normal Oropharynx, Normal External Ear Exam and Mucous Membranes Moist Neck Neck Exam: Normal Inspection, Full ROM and Trachea Midline Chest Chest Inspection: Normal Inspection and Symmetric Chest Wall Rise Respiratory Respiratory Exam: Normal Lung Sounds Bilat Cardiovascular Cardiovascular Exam: Regular Rate, Normal Rhythm, Normal Heart Sounds, +S1 and +S2 Abdominal Exam Abdominal Exam: Normal Inspection, Normal Bowel Sounds, Soft and Other (GT tube in epigastrium. ); negative Distention, Tenderness, Guarding, Rebound, Rigidity, Dimnished Bowel Sounds, Hyperactive Bowel Sounds, Hypoactive Bowel Sounds, Organomegaly, Trauma, Incision, Ascites, Mass, Bruit, Pulsatile Mass and Hernia Rectal Rectal Exam: Deferred External Exam: Female: Deferred Extremities Extremities Exam: Other (s/p Rt. AKA.) Back Back Exam: Normal Inspection and Full ROM Neurologic Neurological Exam: Alert and Oriented X3 Psychiatric Psychiatric Exam: Normal Affect and Normal Mood Skin Skin Exam: Other (ulcer on Lt. heel, covered in dressing. ) COURSE Reevaluation 1st: Unchanged Education/Counseling Education/Counseling: Patient, Education and Counseling Educated On: Treatment, Diagnosis, Prognosis and Needs for Follow Up ROR XRAY XRAY Interpreted by: Self X-ray Results: AAS: Clear chest. No obstruction noted on the abdominal portion. Radioogy report is pending. Opioid Opioid Risk Tool Age (Alexis box if 16-45): No History of Preadolescent Sexual Abuse: No Total: 0 Total Score Risk Category: Low Risk Copyright: [place] TATIANA predicting aberrant behaviors Diagnosis Discharge Problem: PAD (peripheral artery disease), PVD (peripheral vascular disease), CKD (chronic kidney disease) stage 4, GFR 15-29 ml/min, Cerebrovascular accident, old Nausea & vomiting Qualifiers: Vomiting type: unspecified Qualified Code(s): R11.2 - Nausea with vomiting, unspecified DM type 2 with diabetic foot ulcer Qualifiers: Diabetes mellitus exterminator insulin use: with mcc use Qualified Code(s): E11.621 - Type 2 diabetes mellitus with foot ulcer
[2022-02-18] MEDS ORDERED: NS 500 ML IV 500 ML IV ONE (15:40)
[2022-02-18] MEDS ORDERED: ZOFRAN INJ 4 MG VIAL ONE (15:40)
[2022-02-18] MEDS ORDERED: NovoLIN R (or HumuLIN R) SUBCUT PRN (15:45)
[2022-02-18] MEDS: NS 500 ML IV 500 ML IV SCH ×2 (15:46→22:09)
--- NOTE | 2022-02-18 16:45 | RAD ---
HISTORYNURSING HOME STATES PT HAS BEEN NAUSEA/VOMITING TODAY STATES THEY GAVE HER THE FEEDING IN THE PEG TUBE AND SHE VOMITED IT UP.STUDYACUTE ABDOMEN SERIESCOMPARISONAcute abdomen series from 02/07/2022.TECHNIQUEFive images acute abdomen series.FINDINGSPatient is rotated.[The cardiac and mediastinal contours are within normal limits. The lungs are clear without focal consolidation or segmental collapse. No pleural effusion or pneumothorax.]Peg tube in situ. Status post cholecystectomy. Moderate amount of stool in the right corina abdomen. Nonspecific bowel gas pattern with borderline sized loops of gas-filled small bowel. Calcifications in the pelvis are likely phleboliths. No definite pneumatosis, free air, or portal venous gas.IMPRESSIONModerate amount of stool in the right corina abdomen. Nonspecific bowel gas pattern. Consider CT for further evaluation as warranted.Electronically signed by: Sunil Newby (Feb 18, 2022 16:44:09)
[2022-02-18 17:02] LABS: BILIRUBIN,URINE NEGATIVE (NEGATIVE); BLOOD/HEMOGLOBIN,URINE 4+ (NEGATIVE); GLUCOSE, URINE NEGATIVE (NEGATIVE); KETONES,URINE NEGATIVE (NEGATIVE); LEUKOCYTE ESTERASE ,URINE 3+ (NEGATIVE); NITRITES,URINE NEGATIVE (NEGATIVE); PROTEIN,URINE 3+ (NEGATIVE); UROBILINOGEN,URINE NORMAL (NORMAL)
[2022-02-18 17:10] LABS: COLOR,URINE YELLOW (YELLOW)
[2022-02-18 17:11] LABS: APPEARANCE,URINE TURBID (CLEAR)
[2022-02-18 17:12] LABS: BACTERIA,URINE 1+ /HPF (NEGATIVE); RBC,URINE TNTC /HPF (0-3); SQUAMOUS EPITHELIAL CELL,UR FEW /HPF (NEGATIVE)
[2022-02-18] MEDS ORDERED: LR 1,000 ML IV 1,000 ML IV STA (17:29)
[2022-02-18] MEDS ORDERED: LR 1,000 ML IV 1,000 ML IV ONE (17:36)
[2022-02-18] MEDS ORDERED: D50W ABBOJECT SYR IV ONE (20:28)
[2022-02-18] MEDS: ZYVOX 600MG IV 600 MG/300 ML BAG IV SCH (21:35)
[2022-02-18] MEDS ORDERED: NS IRRIGATION* 500 ML IR ONE (21:38)
[2022-02-19] MEDS ORDERED: LR 1,000 ML IV 1,000 ML IV ONE
[2022-02-19] MEDS ORDERED: D50W ABBOJECT SYR IV ONE (00:40)
[2022-02-19] MEDS: NS 500 ML IV 500 ML IV SCH ×5 (05:30→20:38)
[2022-02-19 05:58] LABS: ALANINE AMINOTRANSFERASE 16 Units/L (12-78); ALBUMIN 0.6 g/dL (3.4-5.0); ALKALINE PHOSPHATASE 246 Units/L (46-116); ASPARTATE AMINO TRANSFERASE 35 Units/L (15-37); BLOOD UREA NITROGEN 53 mg/dL (7-18); CALCIUM 7.2 mg/dL (8.5-10.1); CARBON DIOXIDE 17.7 mmol/L (21-32); CHLORIDE 113 mmol/L (98-107); COR CA(FOR HYPOALB) 9.9 mg/dL (8.5-10.1); SODIUM 142 mmol/L (136-145); TOTAL PROTEIN 4.7 g/dL (6.4-8.2); eGFR NON BLACK RACES 18 (>60)
[2022-02-19] MEDS ORDERED: NS 1,000 ML IV 1,000 ML IV ONE (08:20)
[2022-02-19] MEDS ORDERED: LEVOPHED INJ (VIAL) IV PRN ×2 (08:52→08:56)
[2022-02-19] MEDS ORDERED: ASCORBIC ACID INJ MULTI-DOSE VIAL 1,500 MG in NS 50 ML IV 50 ML IV SCH (09:00)
[2022-02-19] MEDS ORDERED: SOLU-Cortef INJ IVP SCH (09:00)
[2022-02-19] MEDS ORDERED: THIAMINE HCL INJ IVP SCH (09:00)
[2022-02-19] MEDS ORDERED: LEVAQUIN PREMIX IV 500 MG 500 MG/100 ML BAG IV ONE (09:40)
[2022-02-19] MEDS ORDERED: LEVOPHED 8 MG/250 ML IV *PREMIX 8 MG/250 ML PLAST..BAG IV PRN (10:18)
[2022-02-19] MEDS: ASCORBIC ACID INJ MULTI-DOSE VIAL 1,500 MG in NS 50 ML IV 50 ML IV SCH ×3 (10:34→20:38)
[2022-02-19] MEDS: SOLU-Cortef INJ IVP SCH ×4 (10:34→20:39)
[2022-02-19] MEDS: ZYVOX 600MG IV 600 MG/300 ML BAG IV SCH ×2 (10:35→20:39)
[2022-02-19] MEDS: THIAMINE HCL INJ IVP SCH ×2 (10:35→20:39)
[2022-02-19 10:43] LABS: BASOPHILS % (AUTO) 0.1 % (0.2-1.0); EOSINOPHILS % (AUTO) 0.1 % (0.9-2.9); HEMOGLOBIN 7.9 g/dL (12.0-16.0); LYMPHOCYTES # (AUTO) 2.9 X10^3/uL (1.3-2.9); LYMPHOCYTES % (AUTO) 22.2 % (21.0-51.0); MEAN CORPUSCULAR HEMOGLOBIN 28.4 pg (27.0-34.0); MEAN CORPUSCULAR HGB CONC 33.1 g/dL (33.0-35.0); MEAN CORPUSCULAR VOLUME 85.8 fL (80.0-100.0); MEAN PLATELET VOLUME 8.7 fL (7.4-11.0); MONOCYTES # (AUTO) 1.2 x10^3/uL (0.3-0.8); NEUTROPHILS # (AUTO) 8.9 x10^3/uL (2.2-4.8); NEUTROPHILS % (AUTO) 68.6 % (42.0-75.0); RED BLOOD COUNT 2.79 X10^6/uL (3.5-5.4); RED CELL DISTRIBUTION WIDTH 20.5 % (11.6-16.5)
--- NOTE | 2022-02-19 10:56 | RAD ---
HISTORYCENTRAL LINE PLACEMENTSTUDYCHEST, 1 [id number]/01/2022.TECHNIQUEAP view of the chestFINDINGSRight IJ central line in good position with the tip near the superior cavoatrial junction. Cardiac silhouette is borderline in size. Interval improvement in bilateral airspace and interstitial opacities. There is likely airspace opacity in the medial left base with some silhouetting the left medial hemidiaphragm. Mild thickening of the right minor fissure suggests small pleural effusion. No pneumothorax. Soft tissue attenuation limits evaluation.IMPRESSIONRight IJ central line in good position. Left base airspace and bilateral interstitial opacities are improved from prior and can be seen with pulmonary edema and pneumonia. Suspect small right pleural effusion.Electronically signed by: Sunil Newby (Feb 19, 2022 10:54:20)
[2022-02-19 11:07] LABS: ANISOCYTOSIS 1+; PLATELET MORPHOLOGY COMMENT NORMAL (NORMAL)
--- NOTE | 2022-02-19 11:08 | DR.UPDATE ---
H&P Update History and Physical Update: History and Physical reviewed and patient examined. Changes noted: NO Yes with the following: Procedures (ALL) - Central Line Placement PCM.CLCO: written consent Time out performed: Yes Patient placed pm monitor/pulse ox: Yes MD prep: mask, gown, gloves, other (MSBT) Centrial line prep: chlorhexidine scrub Local anesthsia used: lidocane 1% Ultrasound used for placement: Yes (easy anatomy) Central line lumen ininserted: triple Post procedure: sutured in place, good blood return, all ports aspirated, flushed,capped, sterile dressing applied Post procedure xray: tip oc catheter in good position, no pneumothorax seen Patient tolerated procedure: Yes (x1 attempt) Complications: none
[2022-02-19 11:09] LABS: BURR CELLS 1+; OVALOCYTES SLIGHT; TARGET CELLS 1+; TEAR DROP CELLS SLIGHT
[2022-02-19 11:31] VITALS: BMI 30.5
[2022-02-19] MEDS ORDERED: PROCRIT or EPOGEN VIAL 10,000 UNITS SC ONE (12:08)
--- NOTE | 2022-02-19 15:44 | DR.PROGNOT ---
Hospital Progress Notes - Progress Note for Day of: Progress Note Date: 02/19/22 - Chief Complaint Chief Complaint: has large sacral decubitus ulcer with tissue loss 16 x 16 cm stage IV with necrosis ..wound Vac is not applied . has UTI , dehydration and hypotensive .. no venous access .. - Past Medical Family Social History Past Med/Fam/Surg Hx: No changes since H&P Allergies: Allergies No Known Drug Allergies Allergy (Verified 10/15/21 10:45) - Review Of Systems ROS: No change since H&P - Vital Signs Vital Signs: Temperature 97.1 F Pulse Rate [Left Radial] 63 Pulse Rate 65 Respiratory Rate 8 Blood Pressure [Left Arm] 151/67 Blood Pressure [Right Arm] 78/40 Blood Pressure 102/51 O2 Sat by Pulse Oximetry 97 - Physical Exam Oriented: Not Oriented Ear: Normal Nose: Normal Throat: Normal Respiratory: Normal Cardiovascular: Other (hypotensive .) Skin: Other (large necrotic sacral ulcer 16 x 16 cm stage IV ) Speech Pattern: Aphasic - Laboratory and Diagnostics Result Diagrams: 02/19/22 05:30 02/19/22 05:30 Labs: 02/18/22 16:50 Urine,Catheterized Urine Culture - Preliminary Laboratory WBC 13.0 X10^3/uL (3.6-10.0) H 02/19/22 05:30 RBC 2.79 X10^6/uL (3.5-5.4) L 02/19/22 05:30 Hgb 7.9 g/dL (12.0-16.0) L 02/19/22 05:30 Hct 24.0 % (36.0-47.0) L 02/19/22 05:30 MCV 85.8 fL (80.0-100.0) 02/19/22 05:30 MCH 28.4 pg (27.0-34.0) 02/19/22 05:30 MCHC 33.1 g/dL (33.0-35.0) 02/19/22 05:30 RDW 20.5 % (11.6-16.5) H 02/19/22 05:30 Plt Count 179 X10^3/uL (150.0-450.0) 02/19/22 05:30 Plt Count Comment Adequate (ADEQUATE) 02/19/22 05:30 MPV 8.7 fL (7.4-11.0) 02/19/22 05:30 Neut % (Auto) 68.6 % (42.0-75.0) 02/19/22 05:30 Lymph % (Auto) 22.2 % (21.0-51.0) 02/19/22 05:30 [place] % (Auto) 9.0 % (0.0-13.0) 02/19/22 05:30 Eos % (Auto) 0.1 % (0.9-2.9) L 02/19/22 05:30 Baso % (Auto) 0.1 % (0.2-1.0) L 02/19/22 05:30 Neut # (Auto) 8.9 x10^3/uL (2.2-4.8) H 02/19/22 05:30 Lymph # (Auto) 2.9 X10^3/uL (1.3-2.9) 02/19/22 05:30 [place] # (Auto) 1.2 x10^3/uL (0.3-0.8) H 02/19/22 05:30 Eos # (Auto) 0.0 x10^3/uL (0.0-0.2) 02/19/22 05:30 Baso # (Auto) 0.0 X10^3/uL (0.0-0.1) 02/19/22 05:30 Absolute Nucleated RBC 2.9 /100WBC 02/19/22 05:30 Plt Morphology Comment Normal (NORMAL) 02/19/22 05:30 RBC Morphology Abnormal (NORMAL) A 02/19/22 05:30 Anisocytosis 1+ A 02/19/22 05:30 Target Cells 1+ A 02/19/22 05:30 Tear Drop Cells Slight A 02/19/22 05:30 Ovalocytes Slight A 02/19/22 05:30 [place] Cells 1+ A 02/19/22 05:30 Sodium 142 mmol/L (136-145) 02/19/22 05:30 Corrected Sodium TNP 02/19/22 05:30 Potassium 3.6 mmol/L (3.5-5.1) 02/19/22 05:30 Chloride 113 mmol/L (98-107) H 02/19/22 05:30 Carbon Dioxide 17.7 mmol/L (21-32) L 02/19/22 05:30 BUN 53 mg/dL (7-18) H 02/19/22 05:30 Creatinine 2.80 mg/dL (0.55-1.02) H 02/19/22 05:30 Est GFR (MDRD) Af Amer 22 (>60) L 02/19/22 05:30 Est GFR (MDRD) Non-Af 18 (>60) L 02/19/22 05:30 Glucose 72 mg/dL (65-99) 02/19/22 05:30 POC Glucose (mg/dL) 70 mg/dL (65-99) 02/19/22 11:16 Lactic Acid 2.5 mmol/L (0.4-2.0) H 02/19/22 10:20 Calcium 7.2 mg/dL (8.5-10.1) L 02/19/22 05:30 Corrected Calcium 9.9 mg/dL (8.5-10.1) 02/19/22 05:30 Total Bilirubin 0.10 mg/dL (0.2-1.0) L 02/19/22 05:30 AST 35 Units/L (15-37) 02/19/22 05:30 ALT 16 Units/L (12-78) 02/19/22 05:30 Alkaline Phosphatase 246 Units/L (46-116) H 02/19/22 05:30 Total Protein 4.7 g/dL (6.4-8.2) L 02/19/22 05:30 Albumin 0.6 g/dL (3.4-5.0) L 02/19/22 05:30 Globulin 4.1 g/dL (2.5-4.5) 02/19/22 05:30 Albumin/Globulin Ratio 0.1 Ratio (1.1-2.1) L 02/19/22 05:30 Specimen Type Catherized urine 02/18/22 16:50 Urine Color Yellow (YELLOW) 02/18/22 16:50 Urine Appearance Turbid (CLEAR) 02/18/22 16:50 Urine pH 6.0 (5.0 - 8.0) 02/18/22 16:50 Ur Specific [place] 1.015 (1.000-1.030) 02/18/22 16:50 Urine Protein 3+ (NEGATIVE) 02/18/22 16:50 Urine Glucose (UA) Negative (NEGATIVE) 02/18/22 16:50 Urine Ketones Negative (NEGATIVE) 02/18/22 16:50 Urine Blood 4+ (NEGATIVE) 02/18/22 16:50 Urine Nitrite Negative (NEGATIVE) 02/18/22 16:50 Urine Bilirubin Negative (NEGATIVE) 02/18/22 16:50 Urine Urobilinogen Normal (NORMAL) 02/18/22 16:50 Ur Leukocyte Esterase 3+ (NEGATIVE) 02/18/22 16:50 Urine RBC Tntc /HPF (0-3) A 02/18/22 16:50 Urine WBC Tntc /HPF (0-5) A 02/18/22 16:50 Ur Squamous Epith Cells Few /HPF (NEGATIVE) 02/18/22 16:50 Urine Bacteria 1+ /HPF (NEGATIVE) 02/18/22 16:50 Ur Culture Indicated? Yes/culture set up 02/18/22 16:50 SARS-CoV-2 (PCR) Negative (NEGATIVE) 02/18/22 15:55 Blood Type B NEGATIVE 02/19/22 13:25 Antibody Screen Positive 02/19/22 13:25 Crossmatch See Detail 02/19/22 13:25 - Assessment and Plan 1: stage IV sacral ulcer 16 x 16 cm with necrosis . hypotention .. UTI . PVD . s/p RT AKA . to place central line and debride the sacral ulcer and apply wound vac in the OR whn BP is stable .. 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
[2022-02-19] MEDS: ZOFRAN INJ 4 MG VIAL IVP PRN (20:40)
[2022-02-20] MEDS: ASCORBIC ACID INJ MULTI-DOSE VIAL 1,500 MG in NS 50 ML IV 50 ML IV SCH ×4 (03:10→21:04)
[2022-02-20 05:03] LABS: BASOPHILS % (AUTO) 0.1 % (0.2-1.0); HEMATOCRIT 25.5 % (36.0-47.0); HEMOGLOBIN 8.6 g/dL (12.0-16.0); LYMPHOCYTES # (AUTO) 2.3 X10^3/uL (1.3-2.9); LYMPHOCYTES % (AUTO) 15.7 % (21.0-51.0); MEAN CORPUSCULAR HEMOGLOBIN 28.8 pg (27.0-34.0); MEAN CORPUSCULAR HGB CONC 33.8 g/dL (33.0-35.0); MEAN CORPUSCULAR VOLUME 85.1 fL (80.0-100.0); MEAN PLATELET VOLUME 9.4 fL (7.4-11.0); MONOCYTES # (AUTO) 0.5 x10^3/uL (0.3-0.8); MONOCYTES % (AUTO) 3.6 % (0.0-13.0); NEUTROPHILS # (AUTO) 11.7 x10^3/uL (2.2-4.8); NEUTROPHILS % (AUTO) 80.6 % (42.0-75.0); RED BLOOD COUNT 2.99 X10^6/uL (3.5-5.4); RED CELL DISTRIBUTION WIDTH 20.4 % (11.6-16.5); WHITE BLOOD COUNT 14.5 X10^3/uL (3.6-10.0)
[2022-02-20 05:11] LABS: ALBUMIN 0.8 g/dL (3.4-5.0); CALCIUM 7.3 mg/dL (8.5-10.1); CARBON DIOXIDE 20.8 mmol/L (21-32); COR CA(FOR HYPOALB) 9.9 mg/dL (8.5-10.1); CREATININE 2.72 mg/dL (0.55-1.02); TOTAL PROTEIN 5.4 g/dL (6.4-8.2)
[2022-02-20] MEDS: NS 500 ML IV 500 ML IV SCH ×3 (05:43→16:49)
[2022-02-20 06:07] LABS: BAND NEUTROPHILS % 1 % (0-10); PLATELET MORPHOLOGY COMMENT NORMAL (NORMAL)
[2022-02-20 06:09] LABS: ANISOCYTOSIS 1+; BURR CELLS PRESENT; HYPOCHROMASIA SLIGHT; OVALOCYTES PRESENT; TARGET CELLS PRESENT; TEAR DROP CELLS PRESENT
[2022-02-20] MEDS: ZYVOX 600MG IV 600 MG/300 ML BAG IV SCH ×2 (08:32→21:03)
[2022-02-20] MEDS: SOLU-Cortef INJ IVP SCH ×4 (08:33→21:04)
[2022-02-20] MEDS: THIAMINE HCL INJ IVP SCH ×2 (08:33→21:12)
--- NOTE | 2022-02-20 11:26 | DR.PROGNOT ---
Hospital Progress Notes - Progress Note for Day of: Progress Note Date: 02/20/22 - Chief Complaint Chief Complaint: BP is stable today and being weaned off Levophed . has UTI , dehydration and hypotensive .. sacral ulcer is the same .. - Past Medical Family Social History Past Med/Fam/Surg Hx: No changes since H&P Allergies: Allergies No Known Drug Allergies Allergy (Verified 10/15/21 10:45) - Review Of Systems ROS: No change since H&P - Vital Signs Vital Signs: Temperature 97.9 F Pulse Rate [Left Radial] 63 Pulse Rate 66 Respiratory Rate 9 Blood Pressure [Left Arm] 151/67 Blood Pressure [Right Arm] 78/40 Blood Pressure 122/58 O2 Sat by Pulse Oximetry 98 - Physical Exam Oriented: Not Oriented Ear: Normal Nose: Normal Throat: Normal Respiratory: Normal Cardiovascular: Other (hypotensive .) Skin: Other (large necrotic sacral ulcer 16 x 16 cm stage IV ) Speech Pattern: Aphasic - Laboratory and Diagnostics Result Diagrams: 02/20/22 03:55 02/20/22 03:55 Labs: 02/18/22 16:50 Urine,Catheterized Urine Culture - Final Klebsiella Pneumoniae Laboratory WBC 14.5 X10^3/uL (3.6-10.0) H 02/20/22 03:55 RBC 2.99 X10^6/uL (3.5-5.4) L 02/20/22 03:55 Hgb 8.6 g/dL (12.0-16.0) L 02/20/22 03:55 Hct 25.5 % (36.0-47.0) L 02/20/22 03:55 MCV 85.1 fL (80.0-100.0) 02/20/22 03:55 MCH 28.8 pg (27.0-34.0) 02/20/22 03:55 MCHC 33.8 g/dL (33.0-35.0) 02/20/22 03:55 RDW 20.4 % (11.6-16.5) H 02/20/22 03:55 Plt Count 221 X10^3/uL (150.0-450.0) 02/20/22 03:55 Plt Count Comment Adequate (ADEQUATE) 02/20/22 03:55 MPV 9.4 fL (7.4-11.0) 02/20/22 03:55 Neut % (Auto) 80.6 % (42.0-75.0) H 02/20/22 03:55 Lymph % (Auto) 15.7 % (21.0-51.0) L 02/20/22 03:55 [place] % (Auto) 3.6 % (0.0-13.0) 02/20/22 03:55 Eos % (Auto) 0.0 % (0.9-2.9) L 02/20/22 03:55 Baso % (Auto) 0.1 % (0.2-1.0) L 02/20/22 03:55 Neut # (Auto) 11.7 x10^3/uL (2.2-4.8) H 02/20/22 03:55 Lymph # (Auto) 2.3 X10^3/uL (1.3-2.9) 02/20/22 03:55 [place] # (Auto) 0.5 x10^3/uL (0.3-0.8) 02/20/22 03:55 Eos # (Auto) 0.0 x10^3/uL (0.0-0.2) 02/20/22 03:55 Baso # (Auto) 0.0 X10^3/uL (0.0-0.1) 02/20/22 03:55 Absolute Nucleated RBC 2.6 /100WBC 02/20/22 03:55 Total Counted 100 02/20/22 03:55 Neutrophils % (Manual) 81 % (39-76) H 02/20/22 03:55 Band Neutrophils % 1 % (0-10) 02/20/22 03:55 Lymphocytes % (Manual) 14 % (13-43) 02/20/22 03:55 Monocytes % (Manual) 4 % (4-9) 02/20/22 03:55 Nucleated RBCs 5 02/20/22 03:55 Plt Morphology Comment Normal (NORMAL) 02/20/22 03:55 RBC Morphology Abnormal (NORMAL) A 02/20/22 03:55 Hypochromasia Slight A 02/20/22 03:55 Anisocytosis 1+ A 02/20/22 03:55 Target Cells Present 02/20/22 03:55 Tear Drop Cells Present 02/20/22 03:55 Ovalocytes Present 02/20/22 03:55 [place] Cells Present 02/20/22 03:55 Sodium 142 mmol/L (136-145) 02/20/22 03:55 Corrected Sodium 143 mmol/L (136-145) 02/20/22 03:55 Potassium 3.6 mmol/L (3.5-5.1) 02/20/22 03:55 Chloride 113 mmol/L (98-107) H 02/20/22 03:55 Carbon Dioxide 20.8 mmol/L (21-32) L 02/20/22 03:55 BUN 50 mg/dL (7-18) H 02/20/22 03:55 Creatinine 2.72 mg/dL (0.55-1.02) H 02/20/22 03:55 Est GFR (MDRD) Af Amer 22 (>60) L 02/20/22 03:55 Est GFR (MDRD) Non-Af 19 (>60) L 02/20/22 03:55 Glucose 139 mg/dL (65-99) H 02/20/22 03:55 POC Glucose (mg/dL) 131 mg/dL (65-99) H 02/20/22 05:41 Lactic Acid 1.1 mmol/L (0.4-2.0) 02/19/22 21:55 Calcium 7.3 mg/dL (8.5-10.1) L 02/20/22 03:55 Corrected Calcium 9.9 mg/dL (8.5-10.1) 02/20/22 03:55 Total Bilirubin 0.20 mg/dL (0.2-1.0) 02/20/22 03:55 AST 30 Units/L (15-37) 02/20/22 03:55 ALT 16 Units/L (12-78) 02/20/22 03:55 Alkaline Phosphatase 270 Units/L (46-116) H 02/20/22 03:55 Total Protein 5.4 g/dL (6.4-8.2) L 02/20/22 03:55 Albumin 0.8 g/dL (3.4-5.0) L 02/20/22 03:55 Globulin 4.6 g/dL (2.5-4.5) H 02/20/22 03:55 Albumin/Globulin Ratio 0.2 Ratio (1.1-2.1) L 02/20/22 03:55 Specimen Type Catherized urine 02/18/22 16:50 Urine Color Yellow (YELLOW) 02/18/22 16:50 Urine Appearance Turbid (CLEAR) 02/18/22 16:50 Urine pH 6.0 (5.0 - 8.0) 02/18/22 16:50 Ur Specific [place] 1.015 (1.000-1.030) 02/18/22 16:50 Urine Protein 3+ (NEGATIVE) 02/18/22 16:50 Urine Glucose (UA) Negative (NEGATIVE) 02/18/22 16:50 Urine Ketones Negative (NEGATIVE) 02/18/22 16:50 Urine Blood 4+ (NEGATIVE) 02/18/22 16:50 Urine Nitrite Negative (NEGATIVE) 02/18/22 16:50 Urine Bilirubin Negative (NEGATIVE) 02/18/22 16:50 Urine Urobilinogen Normal (NORMAL) 02/18/22 16:50 Ur Leukocyte Esterase 3+ (NEGATIVE) 02/18/22 16:50 Urine RBC Tntc /HPF (0-3) A 02/18/22 16:50 Urine WBC Tntc /HPF (0-5) A 02/18/22 16:50 Ur Squamous Epith Cells Few /HPF (NEGATIVE) 02/18/22 16:50 Urine Bacteria 1+ /HPF (NEGATIVE) 02/18/22 16:50 Ur Culture Indicated? Yes/culture set up 02/18/22 16:50 SARS-CoV-2 (PCR) Negative (NEGATIVE) 02/18/22 15:55 Blood Type B NEGATIVE 02/19/22 13:25 Antibody Screen Positive 02/19/22 13:25 Crossmatch See Detail 02/19/22 13:25 - Assessment and Plan 1: stage IV sacral ulcer 16 x 16 cm with necrosis . hypotention .. UTI . PVD . s/p RT AKA . for debride the sacral ulcer and apply wound vac in the OR in am . 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
[2022-02-20] MEDS: ULTRAM PO PRN (21:16)
[2022-02-20] MEDS: NYSTATIN POWDER TOP PRN (21:17)
[2022-02-21] MEDS: NS 500 ML IV 500 ML IV SCH ×6 (00:30→20:44)
[2022-02-21] MEDS: ASCORBIC ACID INJ MULTI-DOSE VIAL 1,500 MG in NS 50 ML IV 50 ML IV SCH ×4 (03:00→20:12)
[2022-02-21 04:54] LABS: BASOPHILS % (AUTO) 0.1 % (0.2-1.0); HEMATOCRIT 24.1 % (36.0-47.0); LYMPHOCYTES # (AUTO) 2.3 X10^3/uL (1.3-2.9); LYMPHOCYTES % (AUTO) 19.8 % (21.0-51.0); MEAN CORPUSCULAR HEMOGLOBIN 28.3 pg (27.0-34.0); MEAN CORPUSCULAR HGB CONC 33.4 g/dL (33.0-35.0); MEAN CORPUSCULAR VOLUME 84.9 fL (80.0-100.0); MEAN PLATELET VOLUME 9.4 fL (7.4-11.0); MONOCYTES # (AUTO) 0.5 x10^3/uL (0.3-0.8); MONOCYTES % (AUTO) 4.2 % (0.0-13.0); NEUTROPHILS % (AUTO) 75.9 % (42.0-75.0); RED BLOOD COUNT 2.83 X10^6/uL (3.5-5.4); RED CELL DISTRIBUTION WIDTH 19.8 % (11.6-16.5); WHITE BLOOD COUNT 11.8 X10^3/uL (3.6-10.0)
[2022-02-21 05:07] LABS: ALBUMIN 0.7 g/dL (3.4-5.0); CALCIUM 6.9 mg/dL (8.5-10.1); CARBON DIOXIDE 20.4 mmol/L (21-32); COR CA(FOR HYPOALB) 9.5 mg/dL (8.5-10.1); CREATININE 2.6 mg/dL (0.55-1.02); TOTAL PROTEIN 5.2 g/dL (6.4-8.2)
[2022-02-21] MEDS: THIAMINE HCL INJ IVP SCH ×2 (08:42→20:43)
[2022-02-21] MEDS: ZYVOX 600MG IV 600 MG/300 ML BAG IV SCH ×2 (08:42→20:44)
[2022-02-21] MEDS: SOLU-Cortef INJ IVP SCH ×4 (08:42→20:44)
[2022-02-21] MEDS ORDERED: BETADINE SOLN ONE (09:56)
[2022-02-21] MEDS ORDERED: ANCEF VIAL 1 GRAM ONE (09:58)
[2022-02-21] MEDS ORDERED: NS 100 ML IV 100 ML ONE (09:58)
[2022-02-21] MEDS ORDERED: NS 1,000 ML IV 1,000 ML ONE (09:58)
[2022-02-21] MEDS ORDERED: KETAMINE HCL ONE (09:59)
[2022-02-21] MEDS ORDERED: VERSED ONE (10:06)
[2022-02-21] MEDS ORDERED: DIPRIVAN VIAL 20 ML ONE (10:06)
[2022-02-21] MEDS ORDERED: POLYMYXIN B SULFATE ONE (10:22)
[2022-02-21] MEDS: ZOFRAN INJ 4 MG VIAL IVP PRN (12:31)
[2022-02-21 21:43] LABS: HEMATOCRIT 22.2 % (36.0-47.0); HEMOGLOBIN 7.4 g/dL (12.0-16.0)
[2022-02-22] MEDS: ULTRAM PO PRN ×4 (00:30→21:33)
[2022-02-22] MEDS: ASCORBIC ACID INJ MULTI-DOSE VIAL 1,500 MG in NS 50 ML IV 50 ML IV SCH ×2 (03:30→08:26)
[2022-02-22] MEDS: NS 500 ML IV 500 ML IV SCH ×5 (04:08→20:39)
[2022-02-22 05:25] LABS: BASOPHILS % (AUTO) 0.1 % (0.2-1.0); HEMATOCRIT 24.2 % (36.0-47.0); HEMOGLOBIN 8.1 g/dL (12.0-16.0); LYMPHOCYTES # (AUTO) 2.4 X10^3/uL (1.3-2.9); LYMPHOCYTES % (AUTO) 20.2 % (21.0-51.0); MEAN CORPUSCULAR HEMOGLOBIN 28.2 pg (27.0-34.0); MEAN CORPUSCULAR HGB CONC 33.6 g/dL (33.0-35.0); MEAN CORPUSCULAR VOLUME 83.9 fL (80.0-100.0); MEAN PLATELET VOLUME 9.6 fL (7.4-11.0); MONOCYTES # (AUTO) 0.6 x10^3/uL (0.3-0.8); NEUTROPHILS % (AUTO) 74.7 % (42.0-75.0); RED BLOOD COUNT 2.88 X10^6/uL (3.5-5.4); RED CELL DISTRIBUTION WIDTH 19.4 % (11.6-16.5)
[2022-02-22 05:30] LABS: ALBUMIN 0.8 g/dL (3.4-5.0); CALCIUM 6.8 mg/dL (8.5-10.1); COR CA(FOR HYPOALB) 9.4 mg/dL (8.5-10.1); CREATININE 2.4 mg/dL (0.55-1.02)
[2022-02-22 05:48] LABS: BAND NEUTROPHILS % 1 % (0-10); HYPOCHROMASIA SLIGHT; PLATELET MORPHOLOGY COMMENT NORMAL (NORMAL); POIKILOCYTOSIS SLIGHT
[2022-02-22 05:49] LABS: BURR CELLS PRESENT; OVALOCYTES PRESENT; TARGET CELLS PRESENT; TEAR DROP CELLS PRESENT
[2022-02-22] MEDS: THIAMINE HCL INJ IVP SCH (08:28)
[2022-02-22] MEDS: SOLU-Cortef INJ IVP SCH (08:30)
[2022-02-22] MEDS: ZYVOX 600MG IV 600 MG/300 ML BAG IV SCH ×2 (08:30→20:39)
[2022-02-22] MEDS: LEVAQUIN PREMIX IV 500 MG 500 MG/100 ML BAG IV SCH (09:43)
[2022-02-22] MEDS: BENICAR TAB 40 MG PO SCH (09:43)
[2022-02-22] MEDS ORDERED: NS 250 ML IV 250 ML IV ONE (09:44)
--- NOTE | 2022-02-22 14:12 | DR.PROGNOT ---
Hospital Progress Notes - Progress Note for Day of: Progress Note Date: 02/22/22 - Chief Complaint Chief Complaint: stable with normal BP .. wound vac is working well . on IV ABT and local care .. - Past Medical Family Social History Past Med/Fam/Surg Hx: No changes since H&P Allergies: Allergies No Known Drug Allergies Allergy (Verified 10/15/21 10:45) - Review Of Systems ROS: No change since H&P - Vital Signs Vital Signs: Temperature 97.5 F Pulse Rate [Left Radial] 63 Pulse Rate 65 Respiratory Rate 15 Blood Pressure [Left Arm] 151/67 Blood Pressure [Right Arm] 78/40 Blood Pressure 164/75 O2 Sat by Pulse Oximetry 100 - Physical Exam Oriented: Not Oriented Ear: Normal Nose: Normal Throat: Normal Respiratory: Normal Cardiovascular: Other (hypotensive .) Skin: Other (s/p debridement of large necrotic sacral ulcer 16 x 16 cm stage IV ) Speech Pattern: Aphasic - Laboratory and Diagnostics Result Diagrams: 02/22/22 03:58 02/22/22 03:58 Labs: 02/21/22 10:30 Sacral Wound Gram Stain - Final 02/21/22 10:30 Sacral Wound Culture - Preliminary 02/19/22 10:20 Blood Blood Culture - Preliminary 02/18/22 16:50 Urine,Catheterized Urine Culture - Final Klebsiella Pneumoniae Laboratory WBC 12.0 X10^3/uL (3.6-10.0) H 02/22/22 03:58 RBC 2.88 X10^6/uL (3.5-5.4) L 02/22/22 03:58 Hgb 8.1 g/dL (12.0-16.0) L 02/22/22 03:58 Hct 24.2 % (36.0-47.0) L 02/22/22 03:58 MCV 83.9 fL (80.0-100.0) 02/22/22 03:58 MCH 28.2 pg (27.0-34.0) 02/22/22 03:58 MCHC 33.6 g/dL (33.0-35.0) 02/22/22 03:58 RDW 19.4 % (11.6-16.5) H 02/22/22 03:58 Plt Count 188 X10^3/uL (150.0-450.0) 02/22/22 03:58 Plt Count Comment Adequate (ADEQUATE) 02/22/22 03:58 MPV 9.6 fL (7.4-11.0) 02/22/22 03:58 Neut % (Auto) 74.7 % (42.0-75.0) 02/22/22 03:58 Lymph % (Auto) 20.2 % (21.0-51.0) L 02/22/22 03:58 [place] % (Auto) 5.0 % (0.0-13.0) 02/22/22 03:58 Eos % (Auto) 0.0 % (0.9-2.9) L 02/22/22 03:58 Baso % (Auto) 0.1 % (0.2-1.0) L 02/22/22 03:58 Neut # (Auto) 9.0 x10^3/uL (2.2-4.8) H 02/22/22 03:58 Lymph # (Auto) 2.4 X10^3/uL (1.3-2.9) 02/22/22 03:58 [place] # (Auto) 0.6 x10^3/uL (0.3-0.8) 02/22/22 03:58 Eos # (Auto) 0.0 x10^3/uL (0.0-0.2) 02/22/22 03:58 Baso # (Auto) 0.0 X10^3/uL (0.0-0.1) 02/22/22 03:58 Absolute Nucleated RBC 4.0 /100WBC 02/22/22 03:58 Total Counted 100 02/22/22 03:58 Neutrophils % (Manual) 77 % (39-76) H 02/22/22 03:58 Band Neutrophils % 1 % (0-10) 02/22/22 03:58 Lymphocytes % (Manual) 20 % (13-43) 02/22/22 03:58 Monocytes % (Manual) 2 % (4-9) L 02/22/22 03:58 Nucleated RBCs 8 02/22/22 03:58 Plt Morphology Comment Normal (NORMAL) 02/22/22 03:58 RBC Morphology Abnormal (NORMAL) A 02/22/22 03:58 Hypochromasia Slight A 02/22/22 03:58 Poikilocytosis Slight A 02/22/22 03:58 Anisocytosis 1+ A 02/20/22 03:55 Target Cells Present 02/22/22 03:58 Tear Drop Cells Present 02/22/22 03:58 Ovalocytes Present 02/22/22 03:58 [place] Cells Present 02/22/22 03:58 Sodium 144 mmol/L (136-145) 02/22/22 03:58 Corrected Sodium 147 mmol/L (136-145) H 02/22/22 03:58 Potassium 3.6 mmol/L (3.5-5.1) 02/22/22 03:58 Chloride 112 mmol/L (98-107) H 02/22/22 03:58 Carbon Dioxide 22.0 mmol/L (21-32) 02/22/22 03:58 BUN 49 mg/dL (7-18) H 02/22/22 03:58 Creatinine 2.40 mg/dL (0.55-1.02) H 02/22/22 03:58 Est GFR (MDRD) Af Amer 26 (>60) L 02/22/22 03:58 Est GFR (MDRD) Non-Af 21 (>60) L 02/22/22 03:58 Glucose 232 mg/dL (65-99) H 02/22/22 03:58 POC Glucose (mg/dL) 167 mg/dL (65-99) H 02/22/22 11:02 Lactic Acid 1.1 mmol/L (0.4-2.0) 02/19/22 21:55 Calcium 6.8 mg/dL (8.5-10.1) L 02/22/22 03:58 Corrected Calcium 9.4 mg/dL (8.5-10.1) 02/22/22 03:58 Total Bilirubin 0.20 mg/dL (0.2-1.0) 02/22/22 03:58 AST 16 Units/L (15-37) 02/22/22 03:58 ALT 16 Units/L (12-78) 02/22/22 03:58 Alkaline Phosphatase 223 Units/L (46-116) H 02/22/22 03:58 Total Protein 5.0 g/dL (6.4-8.2) L 02/22/22 03:58 Albumin 0.8 g/dL (3.4-5.0) L 02/22/22 03:58 Globulin 4.2 g/dL (2.5-4.5) 02/22/22 03:58 Albumin/Globulin Ratio 0.2 Ratio (1.1-2.1) L 02/22/22 03:58 Specimen Type Catherized urine 02/18/22 16:50 Urine Color Yellow (YELLOW) 02/18/22 16:50 Urine Appearance Turbid (CLEAR) 02/18/22 16:50 Urine pH 6.0 (5.0 - 8.0) 02/18/22 16:50 Ur Specific [place] 1.015 (1.000-1.030) 02/18/22 16:50 Urine Protein 3+ (NEGATIVE) 02/18/22 16:50 Urine Glucose (UA) Negative (NEGATIVE) 02/18/22 16:50 Urine Ketones Negative (NEGATIVE) 02/18/22 16:50 Urine Blood 4+ (NEGATIVE) 02/18/22 16:50 Urine Nitrite Negative (NEGATIVE) 02/18/22 16:50 Urine Bilirubin Negative (NEGATIVE) 02/18/22 16:50 Urine Urobilinogen Normal (NORMAL) 02/18/22 16:50 Ur Leukocyte Esterase 3+ (NEGATIVE) 02/18/22 16:50 Urine RBC Tntc /HPF (0-3) A 02/18/22 16:50 Urine WBC Tntc /HPF (0-5) A 02/18/22 16:50 Ur Squamous Epith Cells Few /HPF (NEGATIVE) 02/18/22 16:50 Urine Bacteria 1+ /HPF (NEGATIVE) 02/18/22 16:50 Ur Culture Indicated? Yes/culture set up 02/18/22 16:50 SARS-CoV-2 (PCR) Negative (NEGATIVE) 02/18/22 15:55 Tissue Pathology To follow 02/21/22 10:30 Blood Type B NEGATIVE 02/19/22 13:25 Antibody Screen Positive 02/19/22 13:25 Antibody Identification Anti-D 02/19/22 13:25 Crossmatch See Detail 02/19/22 13:25 - Assessment and Plan 1: stage IV sacral ulcer 16 x 16 cm with necrosis .S/P debridement .. UTI . PVD . s/p RT AKA . same ABT and local care .. 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
[2022-02-22 14:15] LABS: HEMATOCRIT 26.9 % (36.0-47.0); HEMOGLOBIN 9.1 g/dL (12.0-16.0)
[2022-02-23 04:55] LABS: BASOPHILS % (AUTO) 0 % (0.2-1.0); EOSINOPHILS # (AUTO) 0.1 x10^3/uL (0.0-0.2); HEMATOCRIT 28.5 % (36.0-47.0); HEMOGLOBIN 9.6 g/dL (12.0-16.0); LYMPHOCYTES # (AUTO) 3.3 X10^3/uL (1.3-2.9); LYMPHOCYTES % (AUTO) 26.7 % (21.0-51.0); MEAN CORPUSCULAR HEMOGLOBIN 28.3 pg (27.0-34.0); MEAN CORPUSCULAR HGB CONC 33.6 g/dL (33.0-35.0); MEAN CORPUSCULAR VOLUME 84.3 fL (80.0-100.0); MEAN PLATELET VOLUME 9.4 fL (7.4-11.0); MONOCYTES # (AUTO) 0.7 x10^3/uL (0.3-0.8); MONOCYTES % (AUTO) 5.4 % (0.0-13.0); NEUTROPHILS # (AUTO) 8.2 x10^3/uL (2.2-4.8); NEUTROPHILS % (AUTO) 66.9 % (42.0-75.0); RED BLOOD COUNT 3.38 X10^6/uL (3.5-5.4); RED CELL DISTRIBUTION WIDTH 19.4 % (11.6-16.5); WHITE BLOOD COUNT 12.2 X10^3/uL (3.6-10.0)
[2022-02-23 05:06] LABS: ALBUMIN 0.9 g/dL (3.4-5.0); CALCIUM 6.7 mg/dL (8.5-10.1); CARBON DIOXIDE 22.5 mmol/L (21-32); COR CA(FOR HYPOALB) 9.2 mg/dL (8.5-10.1); CREATININE 2.18 mg/dL (0.55-1.02); TOTAL PROTEIN 5.1 g/dL (6.4-8.2)
[2022-02-23] MEDS: NS 500 ML IV 500 ML IV SCH ×2 (05:34→08:29)
[2022-02-23 05:47] LABS: BAND NEUTROPHILS % 2 % (0-10); METAMYELOCYTES % 1; MYELOCYTES % 1; PLATELET MORPHOLOGY COMMENT NORMAL (NORMAL)
[2022-02-23 05:48] LABS: ANISOCYTOSIS 1+; HYPOCHROMASIA 1+; POIKILOCYTOSIS 2+; TARGET CELLS PRESENT
[2022-02-23 05:49] LABS: SCHISTOCYTES PRESENT; SMUDGE CELLS FEW
[2022-02-23] MEDS: LEVAQUIN PREMIX IV 500 MG 500 MG/100 ML BAG IV SCH (08:29)
[2022-02-23] MEDS: BENICAR TAB 40 MG PO SCH (08:29)
[2022-02-23] MEDS: ZYVOX 600MG IV 600 MG/300 ML BAG IV SCH (08:29)
[2022-02-23] MEDS: ULTRAM PO PRN (08:54)
[2022-02-23] MEDS: ZOFRAN INJ 4 MG VIAL IVP PRN ×2 (08:55→20:08)
[2022-02-23] MEDS ORDERED: AMPICILLIN VIAL 1 GRAM IV SCH (11:00)
[2022-02-23] MEDS: NS 1,000 ML IV 1,000 ML IV SCH ×2 (11:03→17:01)
[2022-02-23] MEDS: AMPICILLIN VIAL 1 GRAM 1 G in NS 100 ML IV 100 ML IV SCH ×3 (11:03→21:14)
[2022-02-23] MEDS: MORPHINE SULFATE INJ 2 MG INJ IVP PRN (21:52)
[2022-02-24] MEDS: NS 1,000 ML IV 1,000 ML IV SCH ×4 (03:22→17:04)
[2022-02-24] MEDS: AMPICILLIN VIAL 1 GRAM 1 G in NS 100 ML IV 100 ML IV SCH ×4 (03:28→20:44)
[2022-02-24 05:11] LABS: BASOPHILS % (AUTO) 0.2 % (0.2-1.0); EOSINOPHILS # (AUTO) 0.4 x10^3/uL (0.0-0.2); EOSINOPHILS % (AUTO) 3.5 % (0.9-2.9); HEMATOCRIT 25.8 % (36.0-47.0); HEMOGLOBIN 8.7 g/dL (12.0-16.0); LYMPHOCYTES # (AUTO) 3.3 X10^3/uL (1.3-2.9); LYMPHOCYTES % (AUTO) 25.5 % (21.0-51.0); MEAN CORPUSCULAR HEMOGLOBIN 28.3 pg (27.0-34.0); MEAN CORPUSCULAR HGB CONC 33.7 g/dL (33.0-35.0); MEAN CORPUSCULAR VOLUME 83.9 fL (80.0-100.0); MEAN PLATELET VOLUME 9.2 fL (7.4-11.0); MONOCYTES # (AUTO) 0.6 x10^3/uL (0.3-0.8); MONOCYTES % (AUTO) 4.3 % (0.0-13.0); NEUTROPHILS # (AUTO) 8.5 x10^3/uL (2.2-4.8); NEUTROPHILS % (AUTO) 66.5 % (42.0-75.0); RED BLOOD COUNT 3.08 X10^6/uL (3.5-5.4); RED CELL DISTRIBUTION WIDTH 19.1 % (11.6-16.5); WHITE BLOOD COUNT 12.8 X10^3/uL (3.6-10.0)
[2022-02-24 05:23] LABS: ALANINE AMINOTRANSFERASE 11 Units/L (12-78); ALBUMIN 0.7 g/dL (3.4-5.0); ALKALINE PHOSPHATASE 182 Units/L (46-116); ASPARTATE AMINO TRANSFERASE 17 Units/L (15-37); BLOOD UREA NITROGEN 49 mg/dL (7-18); CALCIUM 6.8 mg/dL (8.5-10.1); CARBON DIOXIDE 20.5 mmol/L (21-32); CHLORIDE 113 mmol/L (98-107); COR CA(FOR HYPOALB) 9.4 mg/dL (8.5-10.1); CREATININE 2.16 mg/dL (0.55-1.02); SODIUM 143 mmol/L (136-145); TOTAL PROTEIN 4.5 g/dL (6.4-8.2); eGFR NON BLACK RACES 24 (>60)
[2022-02-24] MEDS ORDERED: BUTT CREAM (COMPOUND) ONE (08:02)
[2022-02-24] MEDS: MORPHINE SULFATE INJ 2 MG INJ IVP PRN ×3 (08:37→20:37)
[2022-02-24] MEDS: LEVAQUIN PREMIX IV 250 MG 250 MG/50 ML BAG IV SCH (08:39)
[2022-02-24] MEDS: ZOFRAN INJ 4 MG VIAL IVP PRN ×2 (08:52→20:38)
[2022-02-24] MEDS: BENICAR TAB 40 MG PO SCH (08:53)
--- NOTE | 2022-02-24 10:20 | PCM.PROG ---
Progress Note Progress Note for Day of Date of Exam: 02/24/22 Subjective Subjective: Pt is a 66 year old female that is s/p debridement and is also being treated for BLESSING. This morning she is resting comfortably in bed, no acute concerns overnight. Labs: Wbc 12.8, Hgb 8.7, Plt 172, Na 143, K 3.6, Creatinine 2.16, Glucose 98. She is currently receiving IVF NS@150ml/h. Will continue to trend renal function. Her baseline creatinine is 1.4. Plan for discharge [place] in [place] early next week. Continue to monitor and follow up labs in the morning. Past Medical Family Social History Past Med/Fam/Surg Hx: No changes since H&P Allergies: Allergies No Known Drug Allergies Allergy (Verified 10/15/21 10:45) Review of Systems ROS: No change since H&P Vital Signs and I&O's Vital Signs: Temperature 97.5 F Pulse Rate [Left Radial] 63 Pulse Rate 78 Respiratory Rate 11 Blood Pressure [Left Arm] 151/67 Blood Pressure [Right Arm] 78/40 Blood Pressure 163/80 O2 Sat by Pulse Oximetry 100 Intake and Output: Intake & Output 02/21/22 02/22/22 02/23/22 02/24/22 23:59 23:59 23:59 23:59 Intake Total 3895 / 3895 3037 / 3037 3059 / 3059 866 / 866 Output Total 1948 / 1948 650 / 650 1175 / 1175 370 / 370 Balance 194 / 194 2387 / 2387 1884 / 1884 496 / 496 Physical Exam Oriented: Not Oriented Eyes: Normal Ear: Normal Nose: Normal Throat: Normal Respiratory: Normal Cardiovascular: Normal : Normal Auscultation: Bowel Sounds: Normal Palpation: Normal Tenderness: Normal Skin: Other (s/p debridement of large necrotic sacral ulcer 16 x 16 cm stage IV ) Speech Pattern: Aphasic Laboratory and Diagnostics Result Diagrams: 02/24/22 04:50 02/24/22 04:50 Labs: 02/21/22 10:30 Sacral Wound Gram Stain - Final 02/21/22 10:30 Sacral Wound Culture - Final Klebsiella Pneumoniae Pseudomonas Aeruginosa 02/19/22 10:20 Blood Blood Culture - Preliminary 02/18/22 16:50 Urine,Catheterized Urine Culture - Final Klebsiella Pneumoniae Laboratory WBC 12.8 X10^3/uL (3.6-10.0) H 02/24/22 04:50 RBC 3.08 X10^6/uL (3.5-5.4) L 02/24/22 04:50 Hgb 8.7 g/dL (12.0-16.0) L 02/24/22 04:50 Hct 25.8 % (36.0-47.0) L 02/24/22 04:50 MCV 83.9 fL (80.0-100.0) 02/24/22 04:50 MCH 28.3 pg (27.0-34.0) 02/24/22 04:50 MCHC 33.7 g/dL (33.0-35.0) 02/24/22 04:50 RDW 19.1 % (11.6-16.5) H 02/24/22 04:50 Plt Count 172 X10^3/uL (150.0-450.0) 02/24/22 04:50 Plt Count Comment Adequate (ADEQUATE) 02/23/22 04:05 MPV 9.2 fL (7.4-11.0) 02/24/22 04:50 Neut % (Auto) 66.5 % (42.0-75.0) 02/24/22 04:50 Lymph % (Auto) 25.5 % (21.0-51.0) 02/24/22 04:50 [place] % (Auto) 4.3 % (0.0-13.0) 02/24/22 04:50 Eos % (Auto) 3.5 % (0.9-2.9) H 02/24/22 04:50 Baso % (Auto) 0.2 % (0.2-1.0) 02/24/22 04:50 Neut # (Auto) 8.5 x10^3/uL (2.2-4.8) H 02/24/22 04:50 Lymph # (Auto) 3.3 X10^3/uL (1.3-2.9) H 02/24/22 04:50 [place] # (Auto) 0.6 x10^3/uL (0.3-0.8) 02/24/22 04:50 Eos # (Auto) 0.4 x10^3/uL (0.0-0.2) H 02/24/22 04:50 Baso # (Auto) 0.0 X10^3/uL (0.0-0.1) 02/24/22 04:50 Absolute Nucleated RBC 0.9 /100WBC 02/24/22 04:50 Total Counted 100 02/23/22 04:05 Neutrophils % (Manual) 60 % (39-76) 02/23/22 04:05 Band Neutrophils % 2 % (0-10) 02/23/22 04:05 Lymphocytes % (Manual) 31 % (13-43) 02/23/22 04:05 Monocytes % (Manual) 5 % (4-9) 02/23/22 04:05 Metamyelocytes % 1 02/23/22 04:05 Myelocytes % 1 02/23/22 04:05 Nucleated RBCs 3 02/23/22 04:05 [place] Cells Few 02/23/22 04:05 Plt Morphology Comment Normal (NORMAL) 02/23/22 04:05 RBC Morphology Abnormal (NORMAL) A 02/23/22 04:05 Dimorphic RBCs Present 02/23/22 04:05 Hypochromasia 1+ A 02/23/22 04:05 Poikilocytosis 2+ A 02/23/22 04:05 Anisocytosis 1+ A 02/23/22 04:05 Target Cells Present 02/23/22 04:05 Tear Drop Cells Present 02/22/22 03:58 Ovalocytes Present 02/22/22 03:58 [place] Cells Present 02/22/22 03:58 Acanthocytes (Spur) Present 02/23/22 04:05 Schistocytes Present 02/23/22 04:05 Sodium 143 mmol/L (136-145) 02/24/22 04:50 Corrected Sodium TNP 02/24/22 04:50 Potassium 3.6 mmol/L (3.5-5.1) 02/24/22 04:50 Chloride 113 mmol/L (98-107) H 02/24/22 04:50 Carbon Dioxide 20.5 mmol/L (21-32) L 02/24/22 04:50 BUN 49 mg/dL (7-18) H 02/24/22 04:50 Creatinine 2.16 mg/dL (0.55-1.02) H 02/24/22 04:50 Est GFR (MDRD) Af Amer 29 (>60) L 02/24/22 04:50 Est GFR (MDRD) Non-Af 24 (>60) L 02/24/22 04:50 Glucose 98 mg/dL (65-99) 02/24/22 04:50 POC Glucose (mg/dL) 85 mg/dL (65-99) 02/23/22 20:04 Lactic Acid 1.1 mmol/L (0.4-2.0) 02/19/22 21:55 Calcium 6.8 mg/dL (8.5-10.1) L 02/24/22 04:50 Corrected Calcium 9.4 mg/dL (8.5-10.1) 02/24/22 04:50 Total Bilirubin 0.20 mg/dL (0.2-1.0) 02/24/22 04:50 AST 17 Units/L (15-37) 02/24/22 04:50 ALT 11 Units/L (12-78) L 02/24/22 04:50 Alkaline Phosphatase 182 Units/L (46-116) H 02/24/22 04:50 Total Protein 4.5 g/dL (6.4-8.2) L 02/24/22 04:50 Albumin 0.7 g/dL (3.4-5.0) L 02/24/22 04:50 Globulin 3.8 g/dL (2.5-4.5) 02/24/22 04:50 Albumin/Globulin Ratio 0.2 Ratio (1.1-2.1) L 02/24/22 04:50 Specimen Type Catherized urine 02/18/22 16:50 Urine Color Yellow (YELLOW) 02/18/22 16:50 Urine Appearance Turbid (CLEAR) 02/18/22 16:50 Urine pH 6.0 (5.0 - 8.0) 02/18/22 16:50 Ur Specific [place] 1.015 (1.000-1.030) 02/18/22 16:50 Urine Protein 3+ (NEGATIVE) 02/18/22 16:50 Urine Glucose (UA) Negative (NEGATIVE) 02/18/22 16:50 Urine Ketones Negative (NEGATIVE) 02/18/22 16:50 Urine Blood 4+ (NEGATIVE) 02/18/22 16:50 Urine Nitrite Negative (NEGATIVE) 02/18/22 16:50 Urine Bilirubin Negative (NEGATIVE) 02/18/22 16:50 Urine Urobilinogen Normal (NORMAL) 02/18/22 16:50 Ur Leukocyte Esterase 3+ (NEGATIVE) 02/18/22 16:50 Urine RBC Tntc /HPF (0-3) A 02/18/22 16:50 Urine WBC Tntc /HPF (0-5) A 02/18/22 16:50 Ur Squamous Epith Cells Few /HPF (NEGATIVE) 02/18/22 16:50 Urine Bacteria 1+ /HPF (NEGATIVE) 02/18/22 16:50 Ur Culture Indicated? Yes/culture set up 02/18/22 16:50 SARS-CoV-2 (PCR) Negative (NEGATIVE) 02/18/22 15:55 Tissue Pathology To follow 02/21/22 10:30 Blood Type B NEGATIVE 02/19/22 13:25 Antibody Screen Positive 02/19/22 13:25 Antibody Identification Anti-D 02/19/22 13:25 Crossmatch See Detail 02/19/22 13:25 Plan (1) Decubitus ulcer of sacral region, stage 4: Status: Acute (2) Anemia: Status: Acute Qualifiers: Anemia type: unspecified type Qualified Code(s): D64.9 - Anemia, unspecified (3) BLESSING (acute kidney injury): Status: Acute
[2022-02-24 14:42] LABS: HEMOGLOBIN 9.5 g/dL (12.0-16.0); MEAN PLATELET VOLUME 9.3 fL (7.4-11.0)
[2022-02-24 14:45] LABS: BASOPHILS % (AUTO) 0.1 % (0.2-1.0); EOSINOPHILS # (AUTO) 0.5 x10^3/uL (0.0-0.2); EOSINOPHILS % (AUTO) 3.4 % (0.9-2.9); HEMATOCRIT 28.3 % (36.0-47.0); LYMPHOCYTES % (AUTO) 18.6 % (21.0-51.0); MEAN CORPUSCULAR HEMOGLOBIN 28.3 pg (27.0-34.0); MEAN CORPUSCULAR HGB CONC 33.7 g/dL (33.0-35.0); MONOCYTES # (AUTO) 0.7 x10^3/uL (0.3-0.8); MONOCYTES % (AUTO) 4.3 % (0.0-13.0); NEUTROPHILS # (AUTO) 11.9 x10^3/uL (2.2-4.8); NEUTROPHILS % (AUTO) 73.6 % (42.0-75.0); RED BLOOD COUNT 3.37 X10^6/uL (3.5-5.4); WHITE BLOOD COUNT 16.1 X10^3/uL (3.6-10.0)
[2022-02-24 14:49] LABS: ALBUMIN 0.8 g/dL (3.4-5.0); CALCIUM 6.7 mg/dL (8.5-10.1); COR CA(FOR HYPOALB) 9.3 mg/dL (8.5-10.1); CREATININE 2.13 mg/dL (0.55-1.02); TOTAL PROTEIN 5.1 g/dL (6.4-8.2)
--- NOTE | 2022-02-24 15:14 | CT ---
HISTORYALOCSTUDYBRAIN W/O CONCOMPARISONJanuary 2021TECHNIQUEAxial non-contrast images of the head were obtained with coronal and sagittal reformats provided.Radiation dose: 3386.80 mGy-cm total DLPFINDINGSLarge area of encephalomalacia in the right cerebral hemisphere.No abnormal areas of acute attenuation in the brain parenchyma.Albrecht-white differentiation remains intact.No intracranial, extra-axial, fluid collection.No hemorrhage.Periventricular chronic microvascular disease.No mass, mass effect or midline shift.Age related brain parenchymal global atrophy.No ventriculomegaly.No acute fracture.Mild mucosal thickening in the left maxillary sinus, otherwise, the sinuses are well aerated.Mastoid air cells are well aerated.Globes and intra-orbital contents are unremarkable.IMPRESSIONNo acute intracranial abnormality identified.Electronically signed by: Aditya Castro (Feb 24, 2022 15:12:36)
--- NOTE | 2022-02-24 15:16 | RAD ---
HISTORYPossible PNA HX: CVA, TIA, CAD, ANGINA, HTN, RENAL DISEASE. DM. SX: CATHY, ORTHOSTUDYCHEST, 1 VIEWCOMPARISONFINDINGSThe frontal view of the chest shows cardiomegaly with atherosclerosis in the aorta. Pulmonary blood flow is congested. There is interstitial prominence suggesting edema. The decubitus view the chest shows no definite pleural effusion.IMPRESSIONInterstitial prominence suggesting edema but without effusion.Electronically signed by: Keaton Rendon (Feb 24, 2022 15:15:22)
--- NOTE | 2022-02-24 16:44 | VAS ---
HISTORYELEVATED D-DIMERSTUDYLOWER EXT VENOUS, UNILATERALCOMPARISONNo relevant prior studies available.TECHNIQUEGrayscale and color Doppler images of the left lower extremity.FINDINGSCommon femoral, femoral and popliteal veins demonstrate normal compressibility, color Doppler flow, waveforms and augmentation with no filling defects.Soft tissues: Subcutaneous edema.IMPRESSIONNo evidence of deep venous thrombus.Electronically signed by: Aditya Castro (Feb 24, 2022 16:42:31)
[2022-02-24] MEDS: LOVENOX INJ 30 MG SYR SC SCH (17:23)
[2022-02-24] MEDS: NYSTATIN POWDER TOP PRN (20:38)
[2022-02-25] MEDS: AMPICILLIN VIAL 1 GRAM 1 G in NS 100 ML IV 100 ML IV SCH ×2 (02:30→09:48)
[2022-02-25 04:48] LABS: MEAN PLATELET VOLUME 9.2 fL (7.4-11.0)
[2022-02-25 04:50] LABS: CARBON DIOXIDE 20.4 mmol/L (21-32); CREATININE 2.24 mg/dL (0.55-1.02)
[2022-02-25 04:52] LABS: BASOPHILS % (AUTO) 0.2 % (0.2-1.0); EOSINOPHILS # (AUTO) 0.5 x10^3/uL (0.0-0.2); EOSINOPHILS % (AUTO) 2.9 % (0.9-2.9); HEMOGLOBIN 8.5 g/dL (12.0-16.0); LYMPHOCYTES # (AUTO) 2.7 X10^3/uL (1.3-2.9); LYMPHOCYTES % (AUTO) 16.5 % (21.0-51.0); MEAN CORPUSCULAR HEMOGLOBIN 28.7 pg (27.0-34.0); MEAN CORPUSCULAR VOLUME 84.5 fL (80.0-100.0); MONOCYTES # (AUTO) 0.7 x10^3/uL (0.3-0.8); MONOCYTES % (AUTO) 4.2 % (0.0-13.0); NEUTROPHILS # (AUTO) 12.5 x10^3/uL (2.2-4.8); NEUTROPHILS % (AUTO) 76.2 % (42.0-75.0); RED BLOOD COUNT 2.96 X10^6/uL (3.5-5.4); RED CELL DISTRIBUTION WIDTH 18.8 % (11.6-16.5); WHITE BLOOD COUNT 16.3 X10^3/uL (3.6-10.0)
[2022-02-25] MEDS: MORPHINE SULFATE INJ 2 MG INJ IVP PRN ×3 (06:32→21:35)
[2022-02-25] MEDS: ZOFRAN INJ 4 MG VIAL IVP PRN (09:30)
[2022-02-25] MEDS: BENICAR TAB 40 MG PO SCH (09:47)
[2022-02-25] MEDS: LEVAQUIN PREMIX IV 250 MG 250 MG/50 ML BAG IV SCH (09:49)
--- NOTE | 2022-02-25 10:18 | RAD ---
HISTORYHYPOXIASTUDYCHEST, 1 [id number]/2022FINDINGSThe cardiomediastinal silhouette is widened but stable. Right IJ central venous catheter unchanged. Possible developing left-sided airspace opacities. No pneumothorax. The bony thorax appears intact.IMPRESSIONPossible developing left-sided opacities. Continued follow-up recommended.Electronically signed by: CHACHA DUQUE (Feb 25, 2022 10:16:50)
--- NOTE | 2022-02-25 10:44 | PCM.PROG ---
Progress Note Progress Note for Day of Date of Exam: 02/25/22 Subjective Subjective: Pt is a 66 year old female that is s/p debridement and is also being treated for BLESSING. Yesterday, pt had acute episode of extremities "jerking" followed by decrease responsiveness and altered mental status. ER physician evaluated patient for possibility of CVA. Labs and imaging was obtained. CT head: No acute intracranial abnormality identified. CXR: Interstitial prominence suggesting edema but without effusion. IVF was discontinued. Pt's mentation did return back to baseline soon after. Overnight patient had episodes of bradycardia and apnea. This morning she is resting comfortably in bed and responds appropriately to my questions. Vitals are wnl and pulse ox 100%. Labs: Wbc 16.3, Hgb 8.5, Plt 192, Na 143, K 4.1, Creatinine 2.24, Glucose 155. CXR this morning: Possible developing left-sided opacities. Continued follow-up recommended. Will restart gentle hydration, IVF NS@75ml/h. Will continue to trend renal function. Her baseline creatinine is 1.4. Based on C/S, will change antibiotic to Cefepime. Order MRI brain. Otherwise continue with current treatment plan. Monitor and follow up labs in the morning. Time spent on clinical assessment, reviewing labs and imaging, decision making, and documentation greater than 45 minutes. Past Medical Family Social History Past Med/Fam/Surg Hx: No changes since H&P Allergies: Allergies No Known Drug Allergies Allergy (Verified 10/15/21 10:45) Review of Systems ROS: No change since H&P Vital Signs and I&O's Vital Signs: Temperature 98.3 F Pulse Rate [Left Radial] 63 Pulse Rate 87 Respiratory Rate 10 Blood Pressure [Left Arm] 151/67 Blood Pressure [Right Arm] 78/40 Blood Pressure 129/63 O2 Sat by Pulse Oximetry 100 Intake and Output: Intake & Output 02/22/22 02/23/22 02/24/22 02/25/22 23:59 23:59 23:59 23:59 Intake Total 3037 / 3037 3059 / 3059 2372 / 2372 680 / 680 Output Total 650 / 650 1175 / 1175 1300 / 1300 100 / 100 Balance 2387 / 2387 1884 / 1884 1072 / 1072 580 / 580 Physical Exam Oriented: Normal Eyes: Normal Ear: Normal Nose: Normal Throat: Normal Respiratory: Normal Cardiovascular: Normal : Normal Auscultation: Bowel Sounds: Normal Tenderness: Normal Skin: Other (s/p debridement of large necrotic sacral ulcer 16 x 16 cm stage I V ) Speech Pattern: Appropriate and Delayed Laboratory and Diagnostics Result Diagrams: 02/25/22 04:34 02/25/22 04:34 Labs: 02/19/22 10:20 Blood Blood Culture - Final 02/21/22 10:30 Sacral Wound Gram Stain - Final 02/21/22 10:30 Sacral Wound Culture - Final Klebsiella Pneumoniae Pseudomonas Aeruginosa 02/18/22 16:50 Urine,Catheterized Urine Culture - Final Klebsiella Pneumoniae Laboratory WBC 16.3 X10^3/uL (3.6-10.0) H 02/25/22 04:34 RBC 2.96 X10^6/uL (3.5-5.4) L 02/25/22 04:34 Hgb 8.5 g/dL (12.0-16.0) L 02/25/22 04:34 Hct 25.0 % (36.0-47.0) L 02/25/22 04:34 MCV 84.5 fL (80.0-100.0) 02/25/22 04:34 MCH 28.7 pg (27.0-34.0) 02/25/22 04:34 MCHC 34.0 g/dL (33.0-35.0) 02/25/22 04:34 RDW 18.8 % (11.6-16.5) H 02/25/22 04:34 Plt Count 192 X10^3/uL (150.0-450.0) 02/25/22 04:34 Plt Count Comment Adequate (ADEQUATE) 02/23/22 04:05 MPV 9.2 fL (7.4-11.0) 02/25/22 04:34 Neut % (Auto) 76.2 % (42.0-75.0) H 02/25/22 04:34 Lymph % (Auto) 16.5 % (21.0-51.0) L 02/25/22 04:34 [place] % (Auto) 4.2 % (0.0-13.0) 02/25/22 04:34 Eos % (Auto) 2.9 % (0.9-2.9) 02/25/22 04:34 Baso % (Auto) 0.2 % (0.2-1.0) 02/25/22 04:34 Neut # (Auto) 12.5 x10^3/uL (2.2-4.8) H 02/25/22 04:34 Lymph # (Auto) 2.7 X10^3/uL (1.3-2.9) 02/25/22 04:34 [place] # (Auto) 0.7 x10^3/uL (0.3-0.8) 02/25/22 04:34 Eos # (Auto) 0.5 x10^3/uL (0.0-0.2) H 02/25/22 04:34 Baso # (Auto) 0.0 X10^3/uL (0.0-0.1) 02/25/22 04:34 Absolute Nucleated RBC 0.6 /100WBC 02/25/22 04:34 Total Counted 100 02/23/22 04:05 Neutrophils % (Manual) 60 % (39-76) 02/23/22 04:05 Band Neutrophils % 2 % (0-10) 02/23/22 04:05 Lymphocytes % (Manual) 31 % (13-43) 02/23/22 04:05 Monocytes % (Manual) 5 % (4-9) 02/23/22 04:05 Metamyelocytes % 1 02/23/22 04:05 Myelocytes % 1 02/23/22 04:05 Nucleated RBCs 3 02/23/22 04:05 Smudge Cells Few 02/23/22 04:05 Plt Morphology Comment Normal (NORMAL) 02/23/22 04:05 RBC Morphology Abnormal (NORMAL) A 02/23/22 04:05 Dimorphic RBCs Present 02/23/22 04:05 Hypochromasia 1+ A 02/23/22 04:05 Poikilocytosis 2+ A 02/23/22 04:05 Anisocytosis 1+ A 02/23/22 04:05 Target Cells Present 02/23/22 04:05 Tear Drop Cells Present 02/22/22 03:58 Ovalocytes Present 02/22/22 03:58 Janae Cells Present 02/22/22 03:58 Acanthocytes (Spur) Present 02/23/22 04:05 Schistocytes Present 02/23/22 04:05 D-Dimer 3.06 ug/ml (0.0-0.57) H* 02/24/22 14:23 Sodium 143 mmol/L (136-145) 02/25/22 04:34 Corrected Sodium 144 mmol/L (136-145) 02/25/22 04:34 Potassium 4.1 mmol/L (3.5-5.1) 02/25/22 04:34 Chloride 112 mmol/L (98-107) H 02/25/22 04:34 Carbon Dioxide 20.4 mmol/L (21-32) L 02/25/22 04:34 BUN 50 mg/dL (7-18) H 02/25/22 04:34 Creatinine 2.24 mg/dL (0.55-1.02) H 02/25/22 04:34 Est GFR (MDRD) Af Amer 28 (>60) L 02/25/22 04:34 Est GFR (MDRD) Non-Af 23 (>60) L 02/25/22 04:34 Glucose 155 mg/dL (65-99) H 02/25/22 04:34 POC Glucose (mg/dL) 83 mg/dL (65-99) 02/25/22 01:03 Lactic Acid 1.1 mmol/L (0.4-2.0) 02/19/22 21:55 Calcium 7.0 mg/dL (8.5-10.1) L 02/25/22 04:34 Corrected Calcium 9.3 mg/dL (8.5-10.1) 02/24/22 14:23 Total Bilirubin 0.30 mg/dL (0.2-1.0) 02/24/22 14:23 AST 19 Units/L (15-37) 02/24/22 14:23 ALT 13 Units/L (12-78) 02/24/22 14:23 Alkaline Phosphatase 206 Units/L (46-116) H 02/24/22 14:23 Total Protein 5.1 g/dL (6.4-8.2) L 02/24/22 14:23 Albumin 0.8 g/dL (3.4-5.0) L 02/24/22 14:23 Globulin 4.3 g/dL (2.5-4.5) 02/24/22 14:23 Albumin/Globulin Ratio 0.2 Ratio (1.1-2.1) L 02/24/22 14:23 Specimen Type Catherized urine 02/18/22 16:50 Urine Color Yellow (YELLOW) 02/18/22 16:50 Urine Appearance Turbid (CLEAR) 02/18/22 16:50 Urine pH 6.0 (5.0 - 8.0) 02/18/22 16:50 Ur Specific [place] 1.015 (1.000-1.030) 02/18/22 16:50 Urine Protein 3+ (NEGATIVE) 02/18/22 16:50 Urine Glucose (UA) Negative (NEGATIVE) 02/18/22 16:50 Urine Ketones Negative (NEGATIVE) 02/18/22 16:50 Urine Blood 4+ (NEGATIVE) 02/18/22 16:50 Urine Nitrite Negative (NEGATIVE) 02/18/22 16:50 Urine Bilirubin Negative (NEGATIVE) 02/18/22 16:50 Urine Urobilinogen Normal (NORMAL) 02/18/22 16:50 Ur Leukocyte Esterase 3+ (NEGATIVE) 02/18/22 16:50 Urine RBC Tntc /HPF (0-3) A 02/18/22 16:50 Urine WBC Tntc /HPF (0-5) A 02/18/22 16:50 Ur Squamous Epith Cells Few /HPF (NEGATIVE) 02/18/22 16:50 Urine Bacteria 1+ /HPF (NEGATIVE) 02/18/22 16:50 Ur Culture Indicated? Yes/culture set up 02/18/22 16:50 SARS-CoV-2 (PCR) Negative (NEGATIVE) 02/18/22 15:55 Tissue Pathology To follow 02/21/22 10:30 Blood Type B NEGATIVE 02/19/22 13:25 Antibody Screen Positive 02/19/22 13:25 Antibody Identification Anti-D 02/19/22 13:25 Crossmatch See Detail 02/19/22 13:25 Plan (1) Decubitus ulcer of sacral region, stage 4: Status: Acute (2) Anemia: Status: Acute Qualifiers: Anemia type: unspecified type Qualified Code(s): D64.9 - Anemia, unspecified (3) BLESSING (acute kidney injury): Status: Acute
[2022-02-25] MEDS: MAXIPIME VIAL 2 GRAMS 2 G in NS 100 ML IV 100 ML IV SCH (11:22)
[2022-02-25] MEDS: NS 1,000 ML IV 1,000 ML IV SCH (11:23)
[2022-02-25] MEDS: ULTRAM PO PRN ×2 (13:11→23:44)
[2022-02-25] MEDS: LOVENOX INJ 30 MG SYR SC SCH (17:05)
[2022-02-26] MEDS: NS 1,000 ML IV 1,000 ML IV SCH ×2 (04:09→17:45)
[2022-02-26 04:27] LABS: BASOPHILS % (AUTO) 0.1 % (0.2-1.0); EOSINOPHILS # (AUTO) 0.2 x10^3/uL (0.0-0.2); EOSINOPHILS % (AUTO) 1.9 % (0.9-2.9); HEMATOCRIT 22.1 % (36.0-47.0); HEMOGLOBIN 7.3 g/dL (12.0-16.0); LYMPHOCYTES # (AUTO) 2.7 X10^3/uL (1.3-2.9); LYMPHOCYTES % (AUTO) 21.1 % (21.0-51.0); MEAN CORPUSCULAR HEMOGLOBIN 28.3 pg (27.0-34.0); MEAN CORPUSCULAR VOLUME 85.7 fL (80.0-100.0); MEAN PLATELET VOLUME 9.1 fL (7.4-11.0); MONOCYTES # (AUTO) 0.6 x10^3/uL (0.3-0.8); MONOCYTES % (AUTO) 4.7 % (0.0-13.0); NEUTROPHILS # (AUTO) 9.2 x10^3/uL (2.2-4.8); NEUTROPHILS % (AUTO) 72.2 % (42.0-75.0); RED BLOOD COUNT 2.58 X10^6/uL (3.5-5.4); RED CELL DISTRIBUTION WIDTH 19.1 % (11.6-16.5); WHITE BLOOD COUNT 12.8 X10^3/uL (3.6-10.0)
[2022-02-26 04:30] LABS: CALCIUM 7.1 mg/dL (8.5-10.1); CARBON DIOXIDE 20.7 mmol/L (21-32); CREATININE 2.31 mg/dL (0.55-1.02)
[2022-02-26] MEDS ORDERED: LR 1,000 ML IV 1,000 ML IV ONE (08:58)
[2022-02-26] MEDS ORDERED: PROVERA PO SCH (09:00)
[2022-02-26] MEDS: BENICAR TAB 40 MG PO SCH (09:05)
[2022-02-26] MEDS ORDERED: LASIX IVP ONE (09:13)
[2022-02-26] MEDS: ALBUMIN HUMAN 25%- 100 ML 100 ML IV SCH (10:41)
[2022-02-26] MEDS: MAXIPIME VIAL 2 GRAMS 2 G in NS 100 ML IV 100 ML IV SCH (11:49)
[2022-02-26] MEDS: MORPHINE SULFATE INJ 2 MG INJ IVP PRN ×2 (16:40→20:35)
[2022-02-26] MEDS: LOVENOX INJ 30 MG SYR SC SCH (17:50)
[2022-02-27 04:30] LABS: HEMOGLOBIN 7.6 g/dL (12.0-16.0); MONOCYTES # (AUTO) 0.6 x10^3/uL (0.3-0.8); WHITE BLOOD COUNT 13.3 X10^3/uL (3.6-10.0)
[2022-02-27 04:36] LABS: BASOPHILS % (AUTO) 0 % (0.2-1.0); EOSINOPHILS # (AUTO) 0.2 x10^3/uL (0.0-0.2); EOSINOPHILS % (AUTO) 1.4 % (0.9-2.9); HEMATOCRIT 22.4 % (36.0-47.0); LYMPHOCYTES # (AUTO) 2.9 X10^3/uL (1.3-2.9); LYMPHOCYTES % (AUTO) 21.5 % (21.0-51.0); MEAN CORPUSCULAR HEMOGLOBIN 28.9 pg (27.0-34.0); MEAN CORPUSCULAR HGB CONC 33.8 g/dL (33.0-35.0); MEAN CORPUSCULAR VOLUME 85.7 fL (80.0-100.0); MONOCYTES % (AUTO) 4.3 % (0.0-13.0); NEUTROPHILS # (AUTO) 9.7 x10^3/uL (2.2-4.8); NEUTROPHILS % (AUTO) 72.8 % (42.0-75.0); RED BLOOD COUNT 2.62 X10^6/uL (3.5-5.4)
[2022-02-27 04:39] LABS: ALANINE AMINOTRANSFERASE 8 Units/L (12-78); ALBUMIN 1.1 g/dL (3.4-5.0); ALKALINE PHOSPHATASE 136 Units/L (46-116); ASPARTATE AMINO TRANSFERASE 12 Units/L (15-37); BLOOD UREA NITROGEN 54 mg/dL (7-18); CALCIUM 7.2 mg/dL (8.5-10.1); CARBON DIOXIDE 21.4 mmol/L (21-32); CHLORIDE 111 mmol/L (98-107); COR CA(FOR HYPOALB) 9.5 mg/dL (8.5-10.1); CREATININE 2.43 mg/dL (0.55-1.02); SODIUM 142 mmol/L (136-145); TOTAL PROTEIN 4.9 g/dL (6.4-8.2); eGFR NON BLACK RACES 21 (>60)
[2022-02-27] MEDS: NS 1,000 ML IV 1,000 ML IV SCH ×2 (04:45→18:30)
[2022-02-27] MEDS ORDERED: PROCRIT or EPOGEN VIAL 20,000 UNITS SC ONE (08:48)
[2022-02-27] MEDS ORDERED: ALBUMIN HUMAN 25%- 100 ML 100 ML IV SCH (09:00)
[2022-02-27] MEDS: BENICAR TAB 40 MG PO SCH (09:12)
[2022-02-27] MEDS: ALBUMIN HUMAN 25%- 100 ML 100 ML IV SCH (09:13)
[2022-02-27] MEDS: MAXIPIME VIAL 2 GRAMS 2 G in NS 100 ML IV 100 ML IV SCH (10:38)
[2022-02-27] MEDS: LOVENOX INJ 30 MG SYR SC SCH (16:47)
[2022-02-28 04:30] LABS: BASOPHILS % (AUTO) 0.1 % (0.2-1.0); EOSINOPHILS # (AUTO) 0.1 x10^3/uL (0.0-0.2); EOSINOPHILS % (AUTO) 0.8 % (0.9-2.9); HEMATOCRIT 21.2 % (36.0-47.0); LYMPHOCYTES # (AUTO) 2.6 X10^3/uL (1.3-2.9); LYMPHOCYTES % (AUTO) 20.9 % (21.0-51.0); MEAN CORPUSCULAR HGB CONC 32.9 g/dL (33.0-35.0); MEAN CORPUSCULAR VOLUME 85.3 fL (80.0-100.0); MEAN PLATELET VOLUME 8.6 fL (7.4-11.0); MONOCYTES # (AUTO) 0.7 x10^3/uL (0.3-0.8); MONOCYTES % (AUTO) 5.6 % (0.0-13.0); NEUTROPHILS # (AUTO) 9.2 x10^3/uL (2.2-4.8); NEUTROPHILS % (AUTO) 72.6 % (42.0-75.0); RED BLOOD COUNT 2.49 X10^6/uL (3.5-5.4); WHITE BLOOD COUNT 12.6 X10^3/uL (3.6-10.0)
[2022-02-28 04:56] LABS: ALANINE AMINOTRANSFERASE 8 Units/L (12-78); ALBUMIN 1.2 g/dL (3.4-5.0); ALKALINE PHOSPHATASE 109 Units/L (46-116); ASPARTATE AMINO TRANSFERASE 15 Units/L (15-37); BLOOD UREA NITROGEN 51 mg/dL (7-18); CALCIUM 7.1 mg/dL (8.5-10.1); CARBON DIOXIDE 19.8 mmol/L (21-32); CHLORIDE 113 mmol/L (98-107); COR CA(FOR HYPOALB) 9.3 mg/dL (8.5-10.1); CREATININE 2.46 mg/dL (0.55-1.02); SODIUM 142 mmol/L (136-145); TOTAL PROTEIN 4.8 g/dL (6.4-8.2); eGFR NON BLACK RACES 21 (>60)
[2022-02-28] MEDS ORDERED: SYNTHROID 112 mcg TAB ONE (05:32)
[2022-02-28] MEDS: SYNTHROID 112 mcg TAB PO SCH (06:06)
[2022-02-28] MEDS: ALBUMIN HUMAN 25%- 100 ML 100 ML IV SCH (09:14)
[2022-02-28] MEDS: NS 1,000 ML IV 1,000 ML IV SCH ×2 (09:15→22:45)
[2022-02-28] MEDS: BENICAR TAB 40 MG PO SCH (09:15)
[2022-02-28] MEDS ORDERED: LASIX IVP ONE (11:00)
[2022-02-28] MEDS: MAXIPIME VIAL 2 GRAMS 2 G in NS 100 ML IV 100 ML IV SCH (11:25)
[2022-02-28] MEDS ORDERED: STERILE WATER IRRIGATION IR ONE (11:33)
[2022-02-28] MEDS ORDERED: D50W ABBOJECT SYR ONE (16:06)
[2022-02-28] MEDS: D50W ABBOJECT SYR IV PRN ×2 (17:02→20:46)
[2022-02-28] MEDS: LOVENOX INJ 30 MG SYR SC SCH (17:04)
[2022-02-28] MEDS: MORPHINE SULFATE INJ 2 MG INJ IVP PRN (20:41)
[2022-03-01 04:36] LABS: ALANINE AMINOTRANSFERASE 6 Units/L (12-78); ALBUMIN 1.4 g/dL (3.4-5.0); ALKALINE PHOSPHATASE 100 Units/L (46-116); ASPARTATE AMINO TRANSFERASE 11 Units/L (15-37); BLOOD UREA NITROGEN 52 mg/dL (7-18); CALCIUM 7.3 mg/dL (8.5-10.1); CARBON DIOXIDE 19.8 mmol/L (21-32); COR CA(FOR HYPOALB) 9.4 mg/dL (8.5-10.1); CREATININE 2.65 mg/dL (0.55-1.02); SODIUM 147 mmol/L (136-145); TOTAL PROTEIN 4.9 g/dL (6.4-8.2); eGFR NON BLACK RACES 19 (>60)
[2022-03-01 04:39] LABS: BASOPHILS % (AUTO) 0.1 % (0.2-1.0); EOSINOPHILS # (AUTO) 0.1 x10^3/uL (0.0-0.2); EOSINOPHILS % (AUTO) 0.6 % (0.9-2.9); LYMPHOCYTES # (AUTO) 2.4 X10^3/uL (1.3-2.9); LYMPHOCYTES % (AUTO) 19.1 % (21.0-51.0); MEAN CORPUSCULAR HEMOGLOBIN 28.9 pg (27.0-34.0); MEAN CORPUSCULAR HGB CONC 33.4 g/dL (33.0-35.0); MEAN CORPUSCULAR VOLUME 86.6 fL (80.0-100.0); MEAN PLATELET VOLUME 8.7 fL (7.4-11.0); MONOCYTES # (AUTO) 0.8 x10^3/uL (0.3-0.8); MONOCYTES % (AUTO) 6.2 % (0.0-13.0); NEUTROPHILS # (AUTO) 9.3 x10^3/uL (2.2-4.8); RED BLOOD COUNT 2.42 X10^6/uL (3.5-5.4); RED CELL DISTRIBUTION WIDTH 19.3 % (11.6-16.5); WHITE BLOOD COUNT 12.5 X10^3/uL (3.6-10.0)
[2022-03-01 04:43] LABS: CHLORIDE 118 mmol/L (98-107)
[2022-03-01] MEDS: MORPHINE SULFATE INJ 2 MG INJ IVP PRN ×4 (05:08→23:30)
[2022-03-01] MEDS: D50W ABBOJECT SYR IV PRN (05:25)
[2022-03-01] MEDS: SYNTHROID 112 mcg TAB PO SCH (06:14)
[2022-03-01] MEDS: ALBUMIN HUMAN 25%- 100 ML 100 ML IV SCH (08:23)
[2022-03-01] MEDS: BENICAR TAB 40 MG PO SCH (08:23)
[2022-03-01] MEDS ORDERED: NS 100 ML IV 100 ML ONE (08:54)
[2022-03-01] MEDS: LR 1,000 ML IV 1,000 ML IV SCH ×2 (09:32→16:38)
[2022-03-01] MEDS: MAXIPIME VIAL 2 GRAMS 2 G in NS 100 ML IV 100 ML IV SCH (10:19)
[2022-03-01] MEDS: LOVENOX INJ 30 MG SYR SC SCH (16:38)
[2022-03-01 17:46] LABS: HEMATOCRIT 32.5 % (36.0-47.0)
[2022-03-01] MEDS: ZOFRAN INJ 4 MG VIAL IVP PRN (19:10)
[2022-03-01] MEDS: NYSTATIN POWDER TOP PRN (20:17)
[2022-03-02] MEDS: LR 1,000 ML IV 1,000 ML IV SCH ×4 (03:22→23:40)
[2022-03-02] MEDS: MORPHINE SULFATE INJ 2 MG INJ IVP PRN ×2 (03:33→22:35)
[2022-03-02] MEDS: ZOFRAN INJ 4 MG VIAL IVP PRN ×2 (03:33→10:58)
[2022-03-02 05:12] LABS: BASOPHILS % (AUTO) 0.2 % (0.2-1.0); EOSINOPHILS # (AUTO) 0.1 x10^3/uL (0.0-0.2); EOSINOPHILS % (AUTO) 0.6 % (0.9-2.9); HEMATOCRIT 28.4 % (36.0-47.0); HEMOGLOBIN 9.8 g/dL (12.0-16.0); LYMPHOCYTES # (AUTO) 2.3 X10^3/uL (1.3-2.9); LYMPHOCYTES % (AUTO) 21.6 % (21.0-51.0); MEAN CORPUSCULAR HEMOGLOBIN 29.7 pg (27.0-34.0); MEAN CORPUSCULAR HGB CONC 34.6 g/dL (33.0-35.0); MEAN CORPUSCULAR VOLUME 85.8 fL (80.0-100.0); MEAN PLATELET VOLUME 8.7 fL (7.4-11.0); MONOCYTES # (AUTO) 0.8 x10^3/uL (0.3-0.8); MONOCYTES % (AUTO) 7.7 % (0.0-13.0); NEUTROPHILS # (AUTO) 7.5 x10^3/uL (2.2-4.8); NEUTROPHILS % (AUTO) 69.9 % (42.0-75.0); RED CELL DISTRIBUTION WIDTH 16.6 % (11.6-16.5); WHITE BLOOD COUNT 10.7 X10^3/uL (3.6-10.0)
[2022-03-02 05:25] LABS: ALANINE AMINOTRANSFERASE 6 Units/L (12-78); ALBUMIN 1.4 g/dL (3.4-5.0); ALKALINE PHOSPHATASE 91 Units/L (46-116); ASPARTATE AMINO TRANSFERASE 10 Units/L (15-37); BLOOD UREA NITROGEN 49 mg/dL (7-18); CALCIUM 7.2 mg/dL (8.5-10.1); CARBON DIOXIDE 21.4 mmol/L (21-32); COR CA(FOR HYPOALB) 9.3 mg/dL (8.5-10.1); CREATININE 2.71 mg/dL (0.55-1.02); SODIUM 148 mmol/L (136-145); TOTAL PROTEIN 4.5 g/dL (6.4-8.2); eGFR NON BLACK RACES 19 (>60)
[2022-03-02 05:39] LABS: CHLORIDE 119 mmol/L (98-107)
[2022-03-02] MEDS: SYNTHROID 112 mcg TAB PO SCH (05:50)
[2022-03-02] MEDS: ALBUMIN HUMAN 25%- 100 ML 100 ML IV SCH (08:47)
[2022-03-02] MEDS: BENICAR TAB 40 MG PO SCH (08:49)
--- NOTE | 2022-03-02 12:22 | RAD ---
HISTORYVomitingSTUDYAbdomen series with AP chest four [id number]/2022FINDINGSAP chest: We with suspect airspace disease in both lower lungs, left greater than right.Abdomen series: Frontal views of the abdomen are submitted without indication of patient position, supine or upright.There is selective small-bowel distention in the central abdomen. There is a paucity of colon gas. G-tube is present.IMPRESSION1. Intestinal distention consistent with ileus or developing SBO.2. Pneumoperitoneum cannot be excluded without designated upright chest or abdominal images. See above.Electronically signed by: TONY BREWER (Mar 02, 2022 12:20:49)
[2022-03-02] MEDS: MAXIPIME VIAL 2 GRAMS 2 G in NS 100 ML IV 100 ML IV SCH (12:50)
[2022-03-02] MEDS: LOVENOX INJ 30 MG SYR SC SCH (17:14)
[2022-03-02] MEDS: NYSTATIN POWDER TOP PRN (21:30)
[2022-03-02] MEDS: ERYTHROMYCIN BASE PO SCH (22:10)
[2022-03-03] MEDS: MORPHINE SULFATE INJ 2 MG INJ IVP PRN ×3 (03:35→23:30)
[2022-03-03 05:15] LABS: BASOPHILS % (AUTO) 0.2 % (0.2-1.0); EOSINOPHILS % (AUTO) 0.2 % (0.9-2.9); HEMATOCRIT 30.1 % (36.0-47.0); HEMOGLOBIN 10.2 g/dL (12.0-16.0); LYMPHOCYTES # (AUTO) 3.1 X10^3/uL (1.3-2.9); LYMPHOCYTES % (AUTO) 26.5 % (21.0-51.0); MEAN CORPUSCULAR HEMOGLOBIN 29.1 pg (27.0-34.0); MEAN CORPUSCULAR HGB CONC 33.8 g/dL (33.0-35.0); MEAN CORPUSCULAR VOLUME 86.3 fL (80.0-100.0); MEAN PLATELET VOLUME 8.7 fL (7.4-11.0); MONOCYTES # (AUTO) 0.9 x10^3/uL (0.3-0.8); MONOCYTES % (AUTO) 7.5 % (0.0-13.0); NEUTROPHILS # (AUTO) 7.6 x10^3/uL (2.2-4.8); NEUTROPHILS % (AUTO) 65.6 % (42.0-75.0); RED BLOOD COUNT 3.49 X10^6/uL (3.5-5.4); RED CELL DISTRIBUTION WIDTH 16.7 % (11.6-16.5); WHITE BLOOD COUNT 11.6 X10^3/uL (3.6-10.0)
[2022-03-03 05:30] LABS: ALANINE AMINOTRANSFERASE 7 Units/L (12-78); ALBUMIN 1.6 g/dL (3.4-5.0); ALKALINE PHOSPHATASE 100 Units/L (46-116); ASPARTATE AMINO TRANSFERASE 10 Units/L (15-37); BLOOD UREA NITROGEN 50 mg/dL (7-18); CALCIUM 7.6 mg/dL (8.5-10.1); CARBON DIOXIDE 19.7 mmol/L (21-32); COR CA(FOR HYPOALB) 9.5 mg/dL (8.5-10.1); CREATININE 2.93 mg/dL (0.55-1.02); TOTAL PROTEIN 4.8 g/dL (6.4-8.2); eGFR NON BLACK RACES 17 (>60)
[2022-03-03 05:50] LABS: CHLORIDE 119 mmol/L (98-107); SODIUM 150 mmol/L (136-145)
[2022-03-03 05:53] LABS: PLATELET MORPHOLOGY COMMENT NORMAL (NORMAL)
[2022-03-03 05:54] LABS: ANISOCYTOSIS SLIGHT; TARGET CELLS PRESENT
[2022-03-03 05:55] LABS: BURR CELLS PRESENT
[2022-03-03] MEDS: SYNTHROID 112 mcg TAB PO SCH (06:31)
[2022-03-03] MEDS: ALBUMIN HUMAN 25%- 100 ML 100 ML IV SCH (09:29)
[2022-03-03] MEDS: BENICAR TAB 40 MG PO SCH (09:30)
[2022-03-03] MEDS: LR 1,000 ML IV 1,000 ML IV SCH ×2 (09:32→16:49)
[2022-03-03] MEDS: ERYTHROMYCIN BASE PO SCH ×2 (09:32→21:15)
[2022-03-03] MEDS ORDERED: LR 1,000 ML IV 1,000 ML IV ONE (10:01)
[2022-03-03] MEDS: MAXIPIME VIAL 2 GRAMS 2 G in NS 100 ML IV 100 ML IV SCH (10:06)
[2022-03-03] MEDS: ZOFRAN INJ 4 MG VIAL IVP PRN (13:28)
[2022-03-03] MEDS: LOVENOX INJ 30 MG SYR SC SCH (16:49)
[2022-03-04] MEDS: LR 1,000 ML IV 1,000 ML IV SCH ×3 (02:10→17:26)
[2022-03-04] MEDS: MORPHINE SULFATE INJ 2 MG INJ IVP PRN (04:58)
[2022-03-04 05:21] LABS: BASOPHILS % (AUTO) 0.1 % (0.2-1.0); EOSINOPHILS % (AUTO) 0.2 % (0.9-2.9); HEMOGLOBIN 8.4 g/dL (12.0-16.0); LYMPHOCYTES # (AUTO) 2.2 X10^3/uL (1.3-2.9); LYMPHOCYTES % (AUTO) 19.7 % (21.0-51.0); MEAN CORPUSCULAR HEMOGLOBIN 29.1 pg (27.0-34.0); MEAN CORPUSCULAR HGB CONC 33.7 g/dL (33.0-35.0); MEAN CORPUSCULAR VOLUME 86.4 fL (80.0-100.0); MONOCYTES # (AUTO) 0.7 x10^3/uL (0.3-0.8); MONOCYTES % (AUTO) 5.9 % (0.0-13.0); NEUTROPHILS # (AUTO) 8.4 x10^3/uL (2.2-4.8); NEUTROPHILS % (AUTO) 74.1 % (42.0-75.0); RED BLOOD COUNT 2.89 X10^6/uL (3.5-5.4); RED CELL DISTRIBUTION WIDTH 17.2 % (11.6-16.5); WHITE BLOOD COUNT 11.3 X10^3/uL (3.6-10.0)
[2022-03-04 05:45] LABS: BAND NEUTROPHILS % 5 % (0-10); PLATELET MORPHOLOGY COMMENT NORMAL (NORMAL)
[2022-03-04 05:46] LABS: ALANINE AMINOTRANSFERASE < 6 Units/L (12-78); ALBUMIN 1.5 g/dL (3.4-5.0); ALKALINE PHOSPHATASE 105 Units/L (46-116); ANISOCYTOSIS SLIGHT; ASPARTATE AMINO TRANSFERASE 12 Units/L (15-37); BLOOD UREA NITROGEN 51 mg/dL (7-18); BURR CELLS PRESENT; CALCIUM 7.5 mg/dL (8.5-10.1); CARBON DIOXIDE 16.7 mmol/L (21-32); COR CA(FOR HYPOALB) 9.5 mg/dL (8.5-10.1); CREATININE 3.06 mg/dL (0.55-1.02); HYPOCHROMASIA 1+; TARGET CELLS PRESENT; TEAR DROP CELLS PRESENT; TOTAL PROTEIN 4.3 g/dL (6.4-8.2); eGFR NON BLACK RACES 16 (>60)
[2022-03-04 05:53] LABS: CHLORIDE 119 mmol/L (98-107); SODIUM 151 mmol/L (136-145)
[2022-03-04] MEDS: SYNTHROID 112 mcg TAB PO SCH (06:07)
[2022-03-04] MEDS: ERYTHROMYCIN BASE PO SCH ×2 (09:02→21:40)
[2022-03-04] MEDS: BENICAR TAB 40 MG PO SCH (09:02)
[2022-03-04] MEDS: ALBUMIN HUMAN 25%- 100 ML 100 ML IV SCH ×3 (09:02→21:45)
[2022-03-04] MEDS ORDERED: LR 1,000 ML IV 1,000 ML IV ONE (09:22)
[2022-03-04] MEDS: SOLU-Cortef INJ IVP SCH ×3 (10:35→21:40)
[2022-03-04] MEDS: PROTONIX INJ 40 MG VIAL IVP SCH ×2 (10:36→21:40)
[2022-03-04] MEDS: CYTOTEC PO SCH ×4 (10:36→21:35)
[2022-03-04] MEDS: MAXIPIME VIAL 2 GRAMS 2 G in NS 100 ML IV 100 ML IV SCH (10:36)
[2022-03-04] MEDS: MAGNESIUM SULFATE 1 GRAM/100 mL PREMIX 1 G/100 ML BAG IV PRN ×6 (11:05→17:26)
[2022-03-05] MEDS ORDERED: LEVOPHED 8 MG/250 ML IV *PREMIX 8 MG/250 ML PLAST..BAG IV ONE (01:30)
[2022-03-05] MEDS ORDERED: LEVOPHED 8 MG/250 ML IV *PREMIX 8 MG/250 ML PLAST..BAG IV PRN (01:30)
[2022-03-05] MEDS ORDERED: TYGACIL 50 MG VIAL 100 MG in NS 100 ML IV 100 ML IV ONE (02:11)
[2022-03-05] MEDS ORDERED: VANCOMYCIN IV *PREMIX 1 G/200 ML BAG 1 G/200 ML PIGGYBACK IV SCH (02:12)
[2022-03-05 02:59] VITALS: BP 57/34
[2022-03-05] MEDS ORDERED: SOLU-Cortef INJ IVP SCH (03:00)
[2022-03-05] MEDS ORDERED: TYGACIL 50 MG VIAL 50 MG in NS 100 ML IV 100 ML IV SCH (14:00)
== END 2022-03-05 02:36 | disposition expired | DRG 871 ==
LOC: MED/SURG 13:48 → ER 13:48 → OBSVTOIN 15:36 → MED/SURG 16:06 → ICU 02-19 08:35
PROVIDERS: ADMIT Obstetrics & Gynecology Obstetrics; ATTEND Obstetrics & Gynecology Obstetrics
DX: R63.39 Other feeding difficulties; E11.65 Type 2 diabetes mellitus with hyperglycemia; R19.7 Diarrhea, unspecified; E78.5 Hyperlipidemia, unspecified; R41.82 Altered mental status, unspecified; E86.0 Dehydration; R13.19 Other dysphagia; Z66 Do not resuscitate; N18.4 Chronic kidney disease, stage 4 (severe); Z89.611 Acquired absence of right leg above knee; R25.1 Tremor, unspecified; Z86.73 Personal history of transient ischemic attack (TIA), and cerebral infarction without residual deficits; E11.22 Type 2 diabetes mellitus with diabetic chronic kidney disease; N39.0 Urinary tract infection, site not specified; I45.89 Other specified conduction disorders; I87.2 Venous insufficiency (chronic) (peripheral); D64.9 Anemia, unspecified; R47.01 Aphasia; B96.1 Klebsiella pneumoniae [K. pneumoniae] as the cause of diseases classified elsewhere; N17.9 Acute kidney failure, unspecified; B96.5 Pseudomonas (aeruginosa) (mallei) (pseudomallei) as the cause of diseases classified elsewhere; I12.9 Hypertensive chronic kidney disease with stage 1 through stage 4 chronic kidney disease, or unspecified chronic kidney disease; A41.9 Sepsis, unspecified organism; I73.9 Peripheral vascular disease, unspecified; L89.154 Pressure ulcer of sacral region, stage 4; G47.30 Sleep apnea, unspecified; E03.9 Hypothyroidism, unspecified; Z93.1 Gastrostomy status; I95.9 Hypotension, unspecified; Z20.822 Contact with and (suspected) exposure to COVID-19; R00.1 Bradycardia, unspecified